=== PATIENT | male | born 1940 | race Two or more races ===

== ENCOUNTER → 2016-10-06 | Outpatient (CLI) | payer MEDICARE, OTHER | END | disposition home or self-care (01) | LOC: Rad HDHVI 09:43 | PROVIDERS: ATTEND Internal Medicine Cardiovascular Disease | DX: I10 Essential (primary) hypertension (principal); E78.4 Other hyperlipidemia | CPT/HCPCS: 93306 ==

== ENCOUNTER → 2016-10-21 | Outpatient (CLI) | payer MEDICARE, OTHER ==
[~2016-10-21] MED LIST: ADENOSINE 72 MG in GIVE UN-DILUTED 0 ML IV ONE; ADENOSINE 90 MG/30 ML INJ IV ONE
[2016-10-21 12:26] LABS: Urine Bilirubin Negative (Negative); Urine Blood Negative /uL (Negative); Urine Color Yellow (Yellow); Urine Glucose Normal (Normal); Urine Ketone Negative (Negative); Urine Nitrite Negative (Negative); Urine Urobilinogen Normal (Negative); Urine pH 6.5 (5.0-8.0)
[2016-10-21 12:31] LABS: Basophils # (auto) 0 uL; Basophils % (auto) 0.5 % (0.0-2.0); CONDITION Y; Eosinophils # (auto) 0.2 uL; Eosinophils % (auto) 2.3 % (0.0-7.0); Hematocrit 44.5 % (41.0-53.0); Hemoglobin 15.3 g/dL (13.5-17.5); Lymphocytes # (auto) 1.5 uL; Lymphocytes % (auto) 21.1 % (10.0-50.0); Mean Corpuscular Hemoglobin 32.7 pg (28.0-32.0); Mean Corpuscular Hgb Conc. 34.4 g/dL (32.0-36.0); Mean Corpuscular Volume 94.9 fL (80.0-100.0); Mean Platelet Volume 10.4 fL (7.4-10.4); Monocytes # (auto) 0.7 uL; Neutrophils # (auto) 4.8 uL; Neutrophils % (auto) 66.1 % (37.0-80.0); Platelet Count (auto) 279 10^3/uL (140-450); Red Cell Distribution Width 12.6 % (11.6-16.0); White Blood Cell 7.3 10^3/uL (4.4-10.8)
[2016-10-21 12:50] LABS: Bilirubin, Total 0.6 mg/dL (0.2-1.0); Total Protein 7.5 g/dL (6.4-8.2)
[2016-10-21 13:06] LABS: Bilirubin, Direct 0.1 mg/dL (0-0.2)
[2016-10-21 13:08] LABS: Albumin 3.8 g/dL (3.4-5.0); BUN/Creatinine Ratio 13.7; Calcium 9.1 mg/dL (8.5-10.1); Potassium 3.9 mmol/L (3.5-5.1)
== END | disposition home or self-care (01) ==
LOC: Rad HDHVI 08:17
PROVIDERS: ATTEND Internal Medicine Cardiovascular Disease
DX: I10 Essential (primary) hypertension (principal); E78.00 Pure hypercholesterolemia, unspecified; K74.1 Hepatic sclerosis; E11.9 Type 2 diabetes mellitus without complications; E03.9 Hypothyroidism, unspecified; E78.4 Other hyperlipidemia; N39.0 Urinary tract infection, site not specified; D64.9 Anemia, unspecified; E55.9 Vitamin D deficiency, unspecified; R97.20 Elevated prostate specific antigen [PSA]; R53.81 Other malaise
CPT/HCPCS: 36415; 78452; 80048; 80061; 80076; 81003; 82306; 83036; 84153; 84403; 84443; 85025; 93005; 96374; 96375; A9500; J0153

== ENCOUNTER 2017-04-02 13:07 | Emergency (ER) | payer MEDICARE, OTHER ==
[~2017-04-02] VITALS: Ht 175.3 cm; Wt 83.5 kg
[2017-04-02 13:24] VITALS: BP 171/74
[2017-04-02 15:23] LABS: Basophils # (auto) 0.1 uL; Basophils % (auto) 0.4 % (0.0-2.0); Eosinophils # (auto) 0.1 uL; Eosinophils % (auto) 0.5 % (0.0-7.0); Hemoglobin 15.3 g/dL (13.5-17.5); Lymphocytes # (auto) 0.5 uL; Lymphocytes % (auto) 4.1 % (10.0-50.0); Mean Corpuscular Hemoglobin 31.7 pg (28.0-32.0); Mean Corpuscular Hgb Conc. 33.3 g/dL (32.0-36.0); Mean Corpuscular Volume 95.3 fL (80.0-100.0); Monocytes % (auto) 7.4 % (0.0-12.0); Neutrophils # (auto) 11.6 uL; Neutrophils % (auto) 87.6 % (37.0-80.0); Platelet Count (auto) 231 10^3/uL (140-450); Red Blood Cells 4.82 10^6/uL (4.5-5.90); Red Cell Distribution Width 12.9 % (11.8-14.3); White Blood Cell 13.2 10^3/uL (4.4-10.8)
[2017-04-02 15:42] LABS: Alanine Aminotransferase 33 U/L (16-61); Albumin 3.9 g/dL (3.4-5.0); Alkaline Phosphatase 84 U/L (45-117); Anion Gap 8 (5-15); Aspartate Aminotransferase 21 U/L (15-37); BUN/Creatinine Ratio 14.9; Bilirubin, Total 0.7 mg/dL (0.2-1.0); Blood Urea Nitrogen 17 mg/dL (7-18); Carbon Dioxide 25 mmol/L (21-32); Chloride 100 mmol/L (98-107); GFR African American 80 mL/min; GFR Non-African American 66 mL/min; Glucose 241 mg/dL (74-106); Sodium 133 mmol/L (136-145); Total Protein 8.2 g/dL (6.4-8.2)
== END 2017-04-02 15:53 | disposition left against medical advice (07) ==
LOC: EDBD 13:07 → ER 13:17
DX: R05 Cough (principal); J11.1 Influenza due to unidentified influenza virus with other respiratory manifestations; Z53.21 Procedure and treatment not carried out due to patient leaving prior to being seen by health care provider
CPT/HCPCS: 36415; 80053; 84484; 85025; 93005

== ENCOUNTER → 2017-06-28 | Outpatient (CLI) | payer MEDICARE, OTHER ==
[2017-06-28 12:25] LABS: Basophils # (auto) 0.1 uL; Basophils % (auto) 0.7 % (0.0-2.0); Eosinophils # (auto) 0.2 uL; Eosinophils % (auto) 2.4 % (0.0-7.0); Hematocrit 45.8 % (41.0-53.0); Hemoglobin 15.5 g/dL (13.5-17.5); Lymphocytes % (auto) 24.2 % (10.0-50.0); Mean Corpuscular Hemoglobin 32.3 pg (28.0-32.0); Mean Corpuscular Hgb Conc. 33.7 g/dL (32.0-36.0); Mean Corpuscular Volume 95.7 fL (80.0-100.0); Monocytes # (auto) 0.8 uL; Neutrophils # (auto) 5.3 uL; Neutrophils % (auto) 62.7 % (37.0-80.0); Nucleated Red Blood Cells % 0.4 %; Platelet Count (auto) 252 10^3/uL (140-450); Red Blood Cells 4.79 10^6/uL (4.5-5.90); Red Cell Distribution Width 13.3 % (11.8-14.3); White Blood Cell 8.4 10^3/uL (4.4-10.8)
[2017-06-28 12:26] LABS: Urine Blood 1+ /uL (Negative); Urine Specific Gravity 1.012 (1.001-1.035)
[2017-06-28 12:45] LABS: Albumin 3.8 g/dL (3.4-5.0); BUN/Creatinine Ratio 15.3; Bilirubin, Total 0.5 mg/dL (0.2-1.0); Calcium 9.2 mg/dL (8.5-10.1); Potassium 4.5 mmol/L (3.5-5.1)
[2017-06-28 13:08] LABS: Free T4 (Free Thyroxine) 1.03 ng/dL (0.89-1.76); Prostate Specific Antigen 0.73 ng/mL (0.0-4.0)
== END | disposition home or self-care (01) ==
LOC: LAB 08:29
PROVIDERS: ATTEND Internal Medicine Cardiovascular Disease
DX: E78.5 Hyperlipidemia, unspecified (principal); D64.9 Anemia, unspecified; I10 Essential (primary) hypertension; E03.9 Hypothyroidism, unspecified; E55.9 Vitamin D deficiency, unspecified; E11.9 Type 2 diabetes mellitus without complications; D51.9 Vitamin B12 deficiency anemia, unspecified; R53.81 Other malaise; R97.20 Elevated prostate specific antigen [PSA]; N39.0 Urinary tract infection, site not specified
CPT/HCPCS: 36415; 80053; 80061; 81003; 82306; 82607; 83036; 84153; 84403; 84439; 84443; 85025

== ENCOUNTER → 2018-01-04 | Outpatient (CLI) | payer MEDICARE, OTHER ==
[~2018-01-04] VITALS: Ht 175.3 cm; Wt 88.5 kg
[~2018-01-04] MED LIST changes: -ADENOSINE 72 MG in GIVE UN-DILUTED 0 ML IV ONE; +ADENOSINE 74 MG in GIVE UN-DILUTED 0 ML IV ONE
[2018-01-04 16:45] LABS: Basophils # (auto) 0.1 uL; Basophils % (auto) 0.6 % (0.0-2.0); Eosinophils # (auto) 0.2 uL; Eosinophils % (auto) 1.8 % (0.0-7.0); Hematocrit 43.6 % (41.0-53.0); Hemoglobin 15.3 g/dL (13.5-17.5); Lymphocytes % (auto) 21.9 % (10.0-50.0); Mean Corpuscular Hemoglobin 33.1 pg (28.0-32.0); Mean Corpuscular Hgb Conc. 35.1 g/dL (32.0-36.0); Mean Corpuscular Volume 94.5 fL (80.0-100.0); Monocytes # (auto) 0.8 uL; Neutrophils # (auto) 6.1 uL; Neutrophils % (auto) 66.7 % (37.0-80.0); Nucleated Red Blood Cells % 0.2 %; Platelet Count (auto) 240 10^3/uL (140-450); Red Blood Cells 4.61 10^6/uL (4.5-5.90); White Blood Cell 9.1 10^3/uL (4.4-10.8)
[2018-01-04 17:00] LABS: Free T4 (Free Thyroxine) 1.15 ng/dL (0.89-1.76); Prostate Specific Antigen 0.87 ng/mL (0.0-4.0)
[2018-01-04 17:19] LABS: Albumin 3.6 g/dL (3.4-5.0); Calcium 8.8 mg/dL (8.5-10.1); Potassium 4.4 mmol/L (3.5-5.1)
[2018-01-04 17:37] LABS: BUN/Creatinine Ratio 20.5; Bilirubin, Total 0.3 mg/dL (0.2-1.0); Total Protein 7.7 g/dL (6.4-8.2)
[2018-01-04 17:38] LABS: CRP High Sensitivity 0.045 mg/dL (< 0.3)
== END | disposition home or self-care (01) ==
LOC: Rad HDHVI 13:39
PROVIDERS: ATTEND Internal Medicine Cardiovascular Disease
DX: E78.5 Hyperlipidemia, unspecified (principal); I10 Essential (primary) hypertension; E03.9 Hypothyroidism, unspecified; E11.9 Type 2 diabetes mellitus without complications; D64.9 Anemia, unspecified; R74.8 Abnormal levels of other serum enzymes; R79.82 Elevated C-reactive protein (CRP); C61 Malignant neoplasm of prostate; I25.10 Atherosclerotic heart disease of native coronary artery without angina pectoris; G62.9 Polyneuropathy, unspecified
CPT/HCPCS: 36415; 78452; 80053; 80061; 82550; 83036; 84153; 84439; 84443; 84479; 85025; 86141; 93005; 96374; 96375; A9500; J0153

== ENCOUNTER → 2018-05-01 | Outpatient (CLI) | payer MEDICARE, OTHER ==
[2018-05-01 12:13] LABS: Basophils # (auto) 0.1 uL; Basophils % (auto) 0.7 % (0.0-2.0); Eosinophils # (auto) 0.1 uL; Eosinophils % (auto) 1.3 % (0.0-7.0); Hematocrit 48.3 % (41.0-53.0); Hemoglobin 16.4 g/dL (13.5-17.5); Lymphocytes # (auto) 1.9 uL; Lymphocytes % (auto) 21.7 % (10.0-50.0); Mean Corpuscular Hemoglobin 32.3 pg (28.0-32.0); Monocytes # (auto) 0.7 uL; Monocytes % (auto) 8.2 % (0.0-12.0); Neutrophils % (auto) 68.1 % (37.0-80.0); Nucleated Red Blood Cells % 0.1 %; Platelet Count (auto) 249 10^3/uL (140-450); Red Blood Cells 5.08 10^6/uL (4.5-5.90); Red Cell Distribution Width 13.3 % (11.8-14.3); White Blood Cell 8.9 10^3/uL (4.4-10.8)
[2018-05-01 12:47] LABS: Potassium 4.2 mmol/L (3.5-5.1)
[2018-05-01 12:56] LABS: Albumin 3.9 g/dL (3.4-5.0); BUN/Creatinine Ratio 15.6; Bilirubin, Total 0.3 mg/dL (0.2-1.0); Calcium 9.4 mg/dL (8.5-10.1); Total Protein 7.7 g/dL (6.4-8.2)
== END | disposition home or self-care (01) ==
LOC: LAB 10:12
PROVIDERS: ATTEND Internal Medicine
DX: D64.9 Anemia, unspecified (principal); E11.9 Type 2 diabetes mellitus without complications; I10 Essential (primary) hypertension
CPT/HCPCS: 36415; 80053; 83036; 85025

== ENCOUNTER → 2018-08-01 | Outpatient (CLI) | payer MEDICARE, OTHER | END | disposition home or self-care (01) | LOC: Rad HDHVI 10:44 | PROVIDERS: ATTEND Internal Medicine | DX: I70.8 Atherosclerosis of other arteries (principal); G62.9 Polyneuropathy, unspecified; I73.9 Peripheral vascular disease, unspecified | CPT/HCPCS: 93926 ==

== ENCOUNTER 2022-11-16 18:06 | Inpatient (IN) | payer MEDICARE, OTHER ==
[~2022-11-16] VITALS: Ht 175.3 cm; Wt 94.6 kg
[2022-11-16 19:06] LABS: Basophils # (auto) 0 10 ^3/uL (0-0.2); Basophils % (auto) 0.3 % (0.0-2.0); Eosinophils # (auto) 0.1 10 ^3/uL (0-0.8); Eosinophils % (auto) 0.9 % (0.0-7.0); Hematocrit 36.6 % (41.0-53.0); Hemoglobin 12.2 g/dL (13.5-17.5); Lymphocytes # (auto) 1.4 10 ^3/uL (0.4-5.4); Lymphocytes % (auto) 9.8 % (10.0-50.0); Mean Corpuscular Hemoglobin 31.5 pg (28.0-32.0); Mean Corpuscular Hgb Conc. 33.2 g/dL (32.0-36.0); Mean Corpuscular Volume 94.8 fL (80.0-100.0); Monocytes # (auto) 1.5 10 ^3/uL (0-1.3); Monocytes % (auto) 10.5 % (0.0-12.0); Neutrophils # (auto) 11.6 10 ^3/uL (1.6-8.6); Neutrophils % (auto) 78.5 % (37.0-80.0); Nucleated Red Blood Cells % 0.1 %; Red Blood Cells 3.86 10^6/uL (4.5-5.90); Red Cell Distribution Width 13.1 % (11.8-14.3); White Blood Cell 14.8 10^3/uL (4.4-10.8)
[2022-11-16 19:22] LABS: Albumin 3.3 g/dL (3.4-5.0); BUN/Creatinine Ratio 15.1 (10.0-20.0); Calcium 8.6 mg/dL (8.5-10.1); Magnesium 2.3 mg/dL (1.6-2.6)
[2022-11-16 19:24] LABS: Bilirubin, Total 0.6 mg/dL (0.2-1.0); Total Protein 6.4 g/dL (6.4-8.2)
[2022-11-16 19:27] LABS: INR 1.06 (0.9-1.15); Partial Thromboplastin Time 26.6 SEC (24.5-34.5); Prothrombin Time 11.1 sec (9.3-11.8)
[2022-11-16] MEDS ORDERED: DEXTROSE (50%) 50ML SYRG IV PRN (21:30)
[2022-11-16] MEDS ORDERED: ONDANSETRON HCL 4 MG/2 ML VIAL IV PRN (21:30)
[2022-11-16] MEDS ORDERED: MORPHINE SULFATE INJ 2 MG/ml SYRG IV PRN (21:30)
[2022-11-16] MEDS ORDERED: DOCUSATE SOD 100 MG CAP PO PRN (21:30)
[2022-11-16] MEDS ORDERED: NITROGLYCERIN 0.4 MG SL TAB SL PRN (21:30)
[2022-11-16] MEDS ORDERED: HYDROcodone-ACET 5/325MG TAB PO PRN (21:30)
[2022-11-16] MEDS ORDERED: FUR20T PO (21:44)
[2022-11-16] MEDS ORDERED: ATOR40TA52 PO (21:44)
[2022-11-16] MEDS ORDERED: METO1TAB9 PO (21:44)
[2022-11-16] MEDS ORDERED: LISI40TA16 PO (21:44)
[2022-11-16] MEDS: InsuLIN REG 1unit/0.01ml Soln (100units/ml) SC SCH (22:00)
[2022-11-16] MEDS: ACCU-CHEK COMFORT CURVE STRIP VI SCH (22:00)
[2022-11-16] MEDS: ATORVASTATIN 20 MG TAB PO SCH (22:37)
[2022-11-16] MEDS: SODIUM CHLOR 0.9% PF (SALINE LOCK) 10ML VIAL/SYR IV SCH (22:38)
[2022-11-16 23:42] VITALS: PULSE 68; RESP 22; O2SAT 94
[2022-11-17] VITALS (9 sets, daily range): BP systolic 144–168; BP diastolic 57–75; PULSE 70–130; RESP 16–22; TEMP 97.8–99.1; O2SAT 95–97
[2022-11-17 04:31] LABS: Urine Bacteria MOD /hpf (None Seen); Urine Blood TRACE /uL (Negative); Urine Clarity HAZY (Clear); Urine Protein, UAD TRACE (Negative); Urine Specific Gravity 1.004 (1.001-1.035); Urine Urobilinogen Normal (Negative); Urine WBC 115 /hpf (0 - 3); Urine WBC Clumps PRESENT /hpf (None Seen); Urine pH 7.5 (5.0-8.0)
[2022-11-17 04:36] LABS: Urine Color Straw (Yellow)
[2022-11-17 05:01] LABS: Basophils # (auto) 0 10 ^3/uL (0-0.2); Basophils % (auto) 0.2 % (0.0-2.0); Eosinophils # (auto) 0.4 10 ^3/uL (0-0.8); Eosinophils % (auto) 2.6 % (0.0-7.0); Hematocrit 40.3 % (41.0-53.0); Hemoglobin 13.8 g/dL (13.5-17.5); Lymphocytes # (auto) 1.2 10 ^3/uL (0.4-5.4); Lymphocytes % (auto) 8.4 % (10.0-50.0); Mean Corpuscular Hemoglobin 32.3 pg (28.0-32.0); Mean Corpuscular Hgb Conc. 34.2 g/dL (32.0-36.0); Mean Corpuscular Volume 94.3 fL (80.0-100.0); Monocytes # (auto) 1.3 10 ^3/uL (0-1.3); Monocytes % (auto) 9.1 % (0.0-12.0); Neutrophils # (auto) 11.5 10 ^3/uL (1.6-8.6); Neutrophils % (auto) 79.7 % (37.0-80.0); Red Blood Cells 4.27 10^6/uL (4.5-5.90); Red Cell Distribution Width 13.3 % (11.8-14.3); White Blood Cell 14.4 10^3/uL (4.4-10.8)
[2022-11-17 05:17] LABS: Albumin 3.6 g/dL (3.4-5.0); Calcium 9.2 mg/dL (8.5-10.1); Potassium 3.5 mmol/L (3.5-5.1)
[2022-11-17 05:22] LABS: BUN/Creatinine Ratio 13.5 (10.0-20.0); Total Protein 7.6 g/dL (6.4-8.2)
[2022-11-17] MEDS ORDERED: FUROSEMIDE 20 MG/2 ML VIAL IV SCH (06:00)
[2022-11-17] MEDS: ACCU-CHEK COMFORT CURVE STRIP VI SCH ×4 (06:24→21:11)
[2022-11-17] MEDS: InsuLIN REG 1unit/0.01ml Soln (100units/ml) SC SCH ×4 (06:25→21:18)
[2022-11-17] MEDS: SODIUM CHLOR 0.9% PF (SALINE LOCK) 10ML VIAL/SYR IV SCH ×3 (06:26→21:11)
[2022-11-17 09:00] LABS: Magnesium 2.3 mg/dL (1.6-2.6)
[2022-11-17] MEDS: LISINOPRIL 20 MG TAB PO SCH (09:17)
[2022-11-17] MEDS: ASPirin 81 mg TAB PO SCH (09:17)
[2022-11-17] MEDS: METOPROLOL SUCCINATE XL 50 MG TAB PO SCH (09:18)
[2022-11-17 09:27] LABS: Alcohol, Urine < 3.0 mg/dL (0-10); Amphetamine Screen, Urine NEGATIVE (NEGATIVE); Barbiturate Scree,Urine NEGATIVE (NEGATIVE); Benzodiazephine Screen, Urine NEGATIVE (NEGATIVE); Cannabinoid Screen, Urine NEGATIVE (NEGATIVE); Cocaine Screen, Urine NEGATIVE (NEGATIVE); Opiate Scree,Urine NEGATIVE (NEGATIVE); Phencyclidine Screen, Urine NEGATIVE (NEGATIVE)
[2022-11-17] MEDS ORDERED: cefTRIAXone 1GM/50ML D5W 50 ML IV ONE (12:00)
[2022-11-17] MEDS ORDERED: AZITHROMYCIN 500MG/ 250ML 250 ML IV ONE (12:00)
[2022-11-17] MEDS ORDERED: FUROSEMIDE 20 MG TAB PO ONE (20:15)
[2022-11-17] MEDS: ATORVASTATIN 20 MG TAB PO SCH (21:11)
[2022-11-17] MEDS: LACTULOSE 20Gm/30ML SOLN PO SCH (21:16)
[2022-11-17] MEDS: LATANOPROST 0.005 % OPTH(EYE) SOL 2.5ML EACHEYE SCH (21:54)
[2022-11-17] MEDS: TIMOLOL MALEATE 0.25 % OPTH SOL 5ML EACHEYE SCH (21:54)
[2022-11-18] VITALS (15 sets, daily range): BP systolic 128–163; BP diastolic 60–76; PULSE 64–110; RESP 16–24; TEMP 98.2–99; O2SAT 90–100
[2022-11-18] MEDS: hydrALAZINE HCL 20 MG/ML VL IV PRN (04:43)
[2022-11-18] MEDS: SODIUM CHLOR 0.9% PF (SALINE LOCK) 10ML VIAL/SYR IV SCH ×3 (06:21→21:30)
[2022-11-18] MEDS: InsuLIN REG 1unit/0.01ml Soln (100units/ml) SC SCH ×4 (06:21→21:47)
[2022-11-18] MEDS: ACCU-CHEK COMFORT CURVE STRIP VI SCH ×4 (06:21→21:31)
[2022-11-18] MEDS: EMPAGLIFLOZIN 10 MG TAB PO SCH (06:22)
[2022-11-18 06:55] LABS: Basophils # (auto) 0 10 ^3/uL (0-0.2); Basophils % (auto) 0.2 % (0.0-2.0); Eosinophils # (auto) 0.2 10 ^3/uL (0-0.8); Hematocrit 38.6 % (41.0-53.0); Hemoglobin 13.2 g/dL (13.5-17.5); Lymphocytes # (auto) 1.1 10 ^3/uL (0.4-5.4); Lymphocytes % (auto) 6.3 % (10.0-50.0); Mean Corpuscular Hemoglobin 32.4 pg (28.0-32.0); Mean Corpuscular Hgb Conc. 34.3 g/dL (32.0-36.0); Mean Corpuscular Volume 94.4 fL (80.0-100.0); Monocytes # (auto) 1.7 10 ^3/uL (0-1.3); Monocytes % (auto) 9.9 % (0.0-12.0); Neutrophils % (auto) 82.6 % (37.0-80.0); Nucleated Red Blood Cells % 0.1 %; Red Blood Cells 4.08 10^6/uL (4.5-5.90)
[2022-11-18 07:05] LABS: Potassium 3.8 mmol/L (3.5-5.1)
[2022-11-18 07:14] LABS: BUN/Creatinine Ratio 22.4 (10.0-20.0); Bilirubin, Total 0.8 mg/dL (0.2-1.0); Calcium 8.6 mg/dL (8.5-10.1); Magnesium 2.2 mg/dL (1.6-2.6); Total Protein 7.3 g/dL (6.4-8.2)
[2022-11-18 07:25] LABS: Albumin 3.1 g/dL (3.4-5.0)
[2022-11-18] MEDS: ALBUTEROL SULF 2.5 MG/0.5ML(0.5%) NEB SOLN NEB PRN ×3 (08:02→19:01)
[2022-11-18] MEDS: cefTRIAXone 1GM/50ML D5W 50 ML IV SCH (09:23)
[2022-11-18] MEDS: amLODIPine BESYLATE 5 MG TAB PO SCH (09:24)
[2022-11-18] MEDS: SPIRONOLACTONE 25 MG TAB PO SCH (09:25)
[2022-11-18] MEDS: ASPirin 81 mg TAB PO SCH (09:25)
[2022-11-18] MEDS: METOPROLOL SUCCINATE XL 50 MG TAB PO SCH (09:25)
[2022-11-18] MEDS: FUROSEMIDE 20 MG/2 ML VIAL IV SCH (09:25)
[2022-11-18] MEDS: LACTULOSE 20Gm/30ML SOLN PO SCH ×2 (09:26→21:31)
[2022-11-18] MEDS: LISINOPRIL 20 MG TAB PO SCH (09:26)
[2022-11-18] MEDS: TIMOLOL MALEATE 0.25 % OPTH SOL 5ML EACHEYE SCH ×2 (09:26→21:30)
[2022-11-18] MEDS ORDERED: AZITHROMYCIN 500MG/ 250ML 250 ML IV SCH (10:00)
[2022-11-18] MEDS ORDERED: IPRATROPIUM BROM 0.5 MG/2.5ML INH SOL NEB SCH (12:00)
[2022-11-18] MEDS: IPRATROPIUM BROM 0.5 MG/2.5ML INH SOL NEB SCH ×3 (15:08→22:00)
[2022-11-18] MEDS: ACETYLCYSTEINE 20%(200MG/ML) SOL 4ML NEB SCH ×2 (15:08→22:00)
[2022-11-18] MEDS: BUDESONIDE (INHALATION) 0.5 MG/2 ML NEB NEB SCH (19:01)
[2022-11-18] MEDS: LATANOPROST 0.005 % OPTH(EYE) SOL 2.5ML EACHEYE SCH (21:30)
[2022-11-18] MEDS: ATORVASTATIN 20 MG TAB PO SCH (21:31)
[2022-11-19] VITALS (18 sets, daily range): BP systolic 128–157; BP diastolic 67–91; PULSE 68–134; RESP 16–24; TEMP 98.5–99.6; O2SAT 88–98
[2022-11-19] MEDS: IPRATROPIUM BROM 0.5 MG/2.5ML INH SOL NEB SCH ×7 (02:00→22:22)
[2022-11-19] MEDS: SODIUM CHLOR 0.9% PF (SALINE LOCK) 10ML VIAL/SYR IV SCH ×3 (05:51→22:00)
[2022-11-19] MEDS: ACCU-CHEK COMFORT CURVE STRIP VI SCH ×4 (05:51→21:46)
[2022-11-19] MEDS: EMPAGLIFLOZIN 10 MG TAB PO SCH (05:51)
[2022-11-19] MEDS: InsuLIN REG 1unit/0.01ml Soln (100units/ml) SC SCH ×4 (05:54→21:52)
[2022-11-19 06:42] LABS: Basophils # (auto) 0 10 ^3/uL (0-0.2); Basophils % (auto) 0.1 % (0.0-2.0); Eosinophils # (auto) 0.1 10 ^3/uL (0-0.8); Eosinophils % (auto) 0.8 % (0.0-7.0); Hemoglobin 13.1 g/dL (13.5-17.5); Lymphocytes # (auto) 0.8 10 ^3/uL (0.4-5.4); Lymphocytes % (auto) 4.9 % (10.0-50.0); Mean Corpuscular Hgb Conc. 33.7 g/dL (32.0-36.0); Mean Corpuscular Volume 94.9 fL (80.0-100.0); Monocytes # (auto) 1.8 10 ^3/uL (0-1.3); Monocytes % (auto) 10.5 % (0.0-12.0); Neutrophils # (auto) 14.1 10 ^3/uL (1.6-8.6); Neutrophils % (auto) 83.7 % (37.0-80.0); Red Blood Cells 4.11 10^6/uL (4.5-5.90); Red Cell Distribution Width 13.1 % (11.8-14.3); White Blood Cell 16.9 10^3/uL (4.4-10.8)
[2022-11-19 06:56] LABS: BUN/Creatinine Ratio 27.6 (10.0-20.0); Calcium 8.9 mg/dL (8.5-10.1); Potassium 3.4 mmol/L (3.5-5.1)
[2022-11-19 06:59] LABS: Bilirubin, Total 0.7 mg/dL (0.2-1.0); Total Protein 7.4 g/dL (6.4-8.2)
[2022-11-19] MEDS: ALBUTEROL SULF 2.5 MG/0.5ML(0.5%) NEB SOLN NEB PRN ×5 (07:12→22:22)
[2022-11-19] MEDS: ACETYLCYSTEINE 20%(200MG/ML) SOL 4ML NEB SCH ×3 (07:13→22:23)
[2022-11-19] MEDS ORDERED: POTASSIUM EFFERVESENT TAB 25 MEQ GT ONE (08:15)
[2022-11-19] MEDS: cefTRIAXone 1GM/50ML D5W 50 ML IV SCH (09:32)
[2022-11-19] MEDS: TIMOLOL MALEATE 0.25 % OPTH SOL 5ML EACHEYE SCH ×2 (09:32→22:00)
[2022-11-19] MEDS: LACTULOSE 20Gm/30ML SOLN PO SCH ×2 (09:33→21:46)
[2022-11-19] MEDS: ASPirin 81 mg TAB PO SCH (09:33)
[2022-11-19] MEDS: amLODIPine BESYLATE 5 MG TAB PO SCH (09:35)
[2022-11-19] MEDS: LISINOPRIL 20 MG TAB PO SCH (09:35)
[2022-11-19] MEDS: METOPROLOL SUCCINATE XL 50 MG TAB PO SCH (09:36)
[2022-11-19] MEDS: FUROSEMIDE 20 MG/2 ML VIAL IV SCH (09:36)
[2022-11-19] MEDS: SPIRONOLACTONE 25 MG TAB PO SCH (09:37)
[2022-11-19] MEDS: BUDESONIDE (INHALATION) 0.5 MG/2 ML NEB NEB SCH ×2 (10:53→19:02)
[2022-11-19] MEDS: hydrALAZINE HCL 20 MG/ML VL IV PRN (17:40)
[2022-11-19] MEDS: ACETAMINOPHEN 325 MG TAB PO PRN (19:28)
[2022-11-19] MEDS: ATORVASTATIN 20 MG TAB PO SCH (21:46)
[2022-11-19] MEDS: LATANOPROST 0.005 % OPTH(EYE) SOL 2.5ML EACHEYE SCH (22:00)
[2022-11-20] VITALS (19 sets, daily range): BP systolic 103–167; BP diastolic 59–80; PULSE 71–94; RESP 15–21; TEMP 98–100.6; O2SAT 90–96
[2022-11-20] MEDS: IPRATROPIUM BROM 0.5 MG/2.5ML INH SOL NEB SCH ×6 (02:00→21:43)
[2022-11-20] MEDS: EMPAGLIFLOZIN 10 MG TAB PO SCH (05:21)
[2022-11-20] MEDS: SODIUM CHLOR 0.9% PF (SALINE LOCK) 10ML VIAL/SYR IV SCH ×3 (05:21→21:03)
[2022-11-20] MEDS: ACCU-CHEK COMFORT CURVE STRIP VI SCH ×4 (05:26→21:13)
[2022-11-20] MEDS: InsuLIN REG 1unit/0.01ml Soln (100units/ml) SC SCH ×4 (05:27→21:22)
[2022-11-20] MEDS: ALBUTEROL SULF 2.5 MG/0.5ML(0.5%) NEB SOLN NEB PRN ×5 (07:26→21:42)
[2022-11-20] MEDS: ACETYLCYSTEINE 20%(200MG/ML) SOL 4ML NEB SCH ×3 (07:26→18:30)
[2022-11-20 08:29] LABS: Basophils # (auto) 0 10 ^3/uL (0-0.2); Basophils % (auto) 0.2 % (0.0-2.0); Eosinophils # (auto) 0.3 10 ^3/uL (0-0.8); Eosinophils % (auto) 1.5 % (0.0-7.0); Hematocrit 40.7 % (41.0-53.0); Hemoglobin 13.2 g/dL (13.5-17.5); Lymphocytes # (auto) 1.3 10 ^3/uL (0.4-5.4); Mean Corpuscular Hemoglobin 31.4 pg (28.0-32.0); Mean Corpuscular Hgb Conc. 32.4 g/dL (32.0-36.0); Mean Corpuscular Volume 96.6 fL (80.0-100.0); Monocytes # (auto) 1.7 10 ^3/uL (0-1.3); Monocytes % (auto) 8.9 % (0.0-12.0); Neutrophils # (auto) 15.5 10 ^3/uL (1.6-8.6); Neutrophils % (auto) 82.4 % (37.0-80.0); Nucleated Red Blood Cells % 0.1 %; Red Blood Cells 4.21 10^6/uL (4.5-5.90); White Blood Cell 18.9 10^3/uL (4.4-10.8)
[2022-11-20] MEDS: cefTRIAXone 1GM/50ML D5W 50 ML IV SCH (08:42)
[2022-11-20 09:22] LABS: BUN/Creatinine Ratio 35.3 (10.0-20.0); Calcium 9.1 mg/dL (8.5-10.1); Potassium 3.9 mmol/L (3.5-5.1)
[2022-11-20] MEDS: METOPROLOL SUCCINATE XL 50 MG TAB PO SCH (09:30)
[2022-11-20] MEDS: LACTULOSE 20Gm/30ML SOLN PO SCH ×2 (09:30→21:04)
[2022-11-20] MEDS: amLODIPine BESYLATE 5 MG TAB PO SCH (09:31)
[2022-11-20] MEDS: ASPirin 81 mg TAB PO SCH (09:31)
[2022-11-20] MEDS: SPIRONOLACTONE 25 MG TAB PO SCH (09:32)
[2022-11-20] MEDS: TIMOLOL MALEATE 0.25 % OPTH SOL 5ML EACHEYE SCH ×2 (09:33→21:03)
[2022-11-20] MEDS: FUROSEMIDE 20 MG/2 ML VIAL IV SCH (09:33)
[2022-11-20] MEDS: LISINOPRIL 20 MG TAB PO SCH (10:00)
[2022-11-20] MEDS: BUDESONIDE (INHALATION) 0.5 MG/2 ML NEB NEB SCH ×2 (10:14→18:30)
[2022-11-20] MEDS ORDERED: VANCOMYCIN PER PHARMACY 0 MG IV SCH (13:00)
[2022-11-20] MEDS: hydrALAZINE HCL 20 MG/ML VL IV PRN (13:05)
[2022-11-20] MEDS ORDERED: VANCOMYCIN 1GM/250ML 250 ML IV ONE ×2 (13:30→15:00)
[2022-11-20 14:23] LABS: Base Excess 1.3 mmol/L (-2.0-2.0)
[2022-11-20] MEDS: LATANOPROST 0.005 % OPTH(EYE) SOL 2.5ML EACHEYE SCH (21:03)
[2022-11-20] MEDS: PIPERACILLIN-TAZOB 3.375GM 100 ML IV SCH (21:03)
[2022-11-20] MEDS: ATORVASTATIN 20 MG TAB PO SCH (21:04)
[2022-11-20] MEDS: INSULIN LANTUS (GLARGINE) 1 /0.01ml (100units/ml) SC SCH (21:24)
[2022-11-20] MEDS: ACETAMINOPHEN 325 MG TAB PO PRN (21:40)
[2022-11-21] VITALS (25 sets, daily range): BP systolic 104–132; BP diastolic 50–75; PULSE 61–134; RESP 15–26; TEMP 97.7–101.5; O2SAT 90–98
[2022-11-21] MEDS: IPRATROPIUM BROM 0.5 MG/2.5ML INH SOL NEB SCH ×6 (01:57→22:19)
[2022-11-21] MEDS: ALBUTEROL SULF 2.5 MG/0.5ML(0.5%) NEB SOLN NEB PRN ×6 (01:57→22:19)
[2022-11-21 02:28] LABS: Base Excess -0.2 mmol/L (-2.0-2.0)
[2022-11-21] MEDS: ACCU-CHEK COMFORT CURVE STRIP VI SCH ×4 (05:27→21:48)
[2022-11-21] MEDS: SODIUM CHLOR 0.9% PF (SALINE LOCK) 10ML VIAL/SYR IV SCH ×3 (05:27→21:29)
[2022-11-21] MEDS: InsuLIN REG 1unit/0.01ml Soln (100units/ml) SC SCH ×4 (05:30→21:50)
[2022-11-21] MEDS: INSULIN LANTUS (GLARGINE) 1 /0.01ml (100units/ml) SC SCH ×2 (05:36→21:49)
[2022-11-21] MEDS: EMPAGLIFLOZIN 10 MG TAB PO SCH (05:36)
[2022-11-21 06:26] LABS: Basophils # (auto) 0 10 ^3/uL (0-0.2); Basophils % (auto) 0.2 % (0.0-2.0); Eosinophils # (auto) 0.5 10 ^3/uL (0-0.8); Eosinophils % (auto) 2.5 % (0.0-7.0); Hematocrit 37.8 % (41.0-53.0); Lymphocytes # (auto) 1.2 10 ^3/uL (0.4-5.4); Lymphocytes % (auto) 6.3 % (10.0-50.0); Mean Corpuscular Hemoglobin 32.4 pg (28.0-32.0); Mean Corpuscular Hgb Conc. 34.3 g/dL (32.0-36.0); Mean Corpuscular Volume 94.4 fL (80.0-100.0); Monocytes # (auto) 1.6 10 ^3/uL (0-1.3); Monocytes % (auto) 8.6 % (0.0-12.0); Neutrophils # (auto) 15.3 10 ^3/uL (1.6-8.6); Neutrophils % (auto) 82.4 % (37.0-80.0); Red Cell Distribution Width 13.2 % (11.8-14.3); White Blood Cell 18.6 10^3/uL (4.4-10.8)
[2022-11-21 06:34] LABS: Albumin 2.5 g/dL (3.4-5.0); Calcium 8.8 mg/dL (8.5-10.1); Potassium 3.6 mmol/L (3.5-5.1)
[2022-11-21 06:40] LABS: BUN/Creatinine Ratio 27.9 (10.0-20.0); Bilirubin, Total 0.7 mg/dL (0.2-1.0); Total Protein 7.2 g/dL (6.4-8.2)
[2022-11-21] MEDS: ACETYLCYSTEINE 20%(200MG/ML) SOL 4ML NEB SCH ×3 (07:52→18:31)
[2022-11-21] MEDS: BUDESONIDE (INHALATION) 0.5 MG/2 ML NEB NEB SCH ×2 (07:52→18:30)
[2022-11-21] MEDS: TIMOLOL MALEATE 0.25 % OPTH SOL 5ML EACHEYE SCH ×2 (09:42→21:29)
[2022-11-21] MEDS: ASPirin 81 mg TAB PO SCH (09:42)
[2022-11-21] MEDS: PIPERACILLIN-TAZOB 3.375GM 100 ML IV SCH (09:42)
[2022-11-21] MEDS: SPIRONOLACTONE 25 MG TAB PO SCH (09:45)
[2022-11-21] MEDS: LACTULOSE 20Gm/30ML SOLN PO SCH ×2 (09:46→21:29)
[2022-11-21] MEDS: METOPROLOL SUCCINATE XL 50 MG TAB PO SCH (11:14)
[2022-11-21] MEDS: LISINOPRIL 20 MG TAB PO SCH (11:14)
[2022-11-21] MEDS: amLODIPine BESYLATE 5 MG TAB PO SCH (11:36)
[2022-11-21 11:44] LABS: Erythrocyte Sedimentation Rate 73 mm/hr (0-20)
[2022-11-21] MEDS ORDERED: VANCOMYCIN 1GM/250ML 250 ML IV ONE (14:00)
[2022-11-21] MEDS ORDERED: FUROSEMIDE 20 MG/2 ML VIAL IV ONE (14:15)
[2022-11-21 21:11] LABS: COVID19 ANTIGEN SOFIA FIA NEGATIVE (NEGATIVE); Rapid Influenza A Negative (Negative); Rapid Influenza B Negative (Negative)
[2022-11-21] MEDS: MEROPENEM 1GM IVPB 100 ML IV SCH (21:29)
[2022-11-21] MEDS: ATORVASTATIN 20 MG TAB PO SCH (21:29)
[2022-11-21] MEDS: LATANOPROST 0.005 % OPTH(EYE) SOL 2.5ML EACHEYE SCH (21:29)
[2022-11-22] VITALS (19 sets, daily range): BP systolic 99–146; BP diastolic 53–72; PULSE 59–103; RESP 18–28; TEMP 98–98.7; O2SAT 91–95
[2022-11-22] MEDS: ALBUTEROL SULF 2.5 MG/0.5ML(0.5%) NEB SOLN NEB PRN ×5 (01:37→22:21)
[2022-11-22] MEDS: IPRATROPIUM BROM 0.5 MG/2.5ML INH SOL NEB SCH ×6 (01:37→22:21)
[2022-11-22] MEDS ORDERED: FUROSEMIDE 20 MG/2 ML VIAL IV SCH (06:00)
[2022-11-22] MEDS: SODIUM CHLOR 0.9% PF (SALINE LOCK) 10ML VIAL/SYR IV SCH ×3 (06:12→22:39)
[2022-11-22] MEDS: EMPAGLIFLOZIN 10 MG TAB PO SCH (06:12)
[2022-11-22] MEDS: ACCU-CHEK COMFORT CURVE STRIP VI SCH ×4 (06:13→22:58)
[2022-11-22] MEDS: ACETYLCYSTEINE 20%(200MG/ML) SOL 4ML NEB SCH ×3 (06:15→18:33)
[2022-11-22] MEDS: INSULIN LANTUS (GLARGINE) 1 /0.01ml (100units/ml) SC SCH ×2 (06:20→23:02)
[2022-11-22] MEDS: InsuLIN REG 1unit/0.01ml Soln (100units/ml) SC SCH ×4 (06:23→22:00)
[2022-11-22 06:33] LABS: Basophils # (auto) 0 10 ^3/uL (0-0.2); Basophils % (auto) 0.1 % (0.0-2.0); Eosinophils # (auto) 0.6 10 ^3/uL (0-0.8); Eosinophils % (auto) 3.1 % (0.0-7.0); Hematocrit 37.4 % (41.0-53.0); Hemoglobin 12.3 g/dL (13.5-17.5); Lymphocytes # (auto) 0.9 10 ^3/uL (0.4-5.4); Lymphocytes % (auto) 4.9 % (10.0-50.0); Mean Corpuscular Hemoglobin 31.3 pg (28.0-32.0); Mean Corpuscular Volume 94.9 fL (80.0-100.0); Monocytes # (auto) 1.5 10 ^3/uL (0-1.3); Monocytes % (auto) 8.4 % (0.0-12.0); Neutrophils % (auto) 83.5 % (37.0-80.0); Red Blood Cells 3.94 10^6/uL (4.5-5.90); Red Cell Distribution Width 12.9 % (11.8-14.3); White Blood Cell 17.9 10^3/uL (4.4-10.8)
[2022-11-22 08:47] LABS: Potassium 3.8 mmol/L (3.5-5.1)
[2022-11-22 09:02] LABS: Albumin 2.3 g/dL (3.4-5.0); BUN/Creatinine Ratio 41.8 (10.0-20.0); Bilirubin, Total 0.6 mg/dL (0.2-1.0); Calcium 8.2 mg/dL (8.7-10.4)
[2022-11-22] MEDS: LACTULOSE 20Gm/30ML SOLN PO SCH ×2 (10:00→22:00)
[2022-11-22] MEDS: BUDESONIDE (INHALATION) 0.5 MG/2 ML NEB NEB SCH ×2 (10:41→18:33)
[2022-11-22] MEDS: TIMOLOL MALEATE 0.25 % OPTH SOL 5ML EACHEYE SCH ×2 (10:58→22:38)
[2022-11-22] MEDS: amLODIPine BESYLATE 5 MG TAB PO SCH (10:59)
[2022-11-22] MEDS: ASPirin 81 mg TAB PO SCH (10:59)
[2022-11-22] MEDS: MEROPENEM 1GM IVPB 100 ML IV SCH ×2 (11:00→22:38)
[2022-11-22] MEDS: METOPROLOL SUCCINATE XL 50 MG TAB PO SCH (11:00)
[2022-11-22] MEDS ORDERED: amLODIPine BESYLATE 5 MG TAB PO ONE (13:45)
[2022-11-22] MEDS: SODIUM BICARBONATE 50ML VIAL 75 ML in D5W 5% 1,000 ML IV SCH ×2 (13:59→22:30)
[2022-11-22 15:07] LABS: Base Excess -1.4 mmol/L (-2.0-2.0)
[2022-11-22] MEDS ORDERED: REMDESIVIR PER PHARMACY 0 ML IV SCH (16:00)
[2022-11-22] MEDS ORDERED: REMDESIVIR 200 MG in NS 210ml LOADING DOSE ADULT IV ONE (17:15)
[2022-11-22] MEDS ORDERED: ALBUTEROL SULF HFA 90MCG INH 200DOSE IN SCH (22:00)
[2022-11-22] MEDS: ATORVASTATIN 20 MG TAB PO SCH (22:38)
[2022-11-22] MEDS: LATANOPROST 0.005 % OPTH(EYE) SOL 2.5ML EACHEYE SCH (22:38)
[2022-11-23] VITALS (61 sets, daily range): BP systolic 73–184; BP diastolic 43–91; PULSE 66–113; RESP 15–30; TEMP 97.8–100.2; O2SAT 90–100
[2022-11-23] MEDS: ALBUTEROL SULF 2.5 MG/0.5ML(0.5%) NEB SOLN NEB PRN ×6 (01:54→22:29)
[2022-11-23] MEDS: IPRATROPIUM BROM 0.5 MG/2.5ML INH SOL NEB SCH ×6 (01:54→22:29)
[2022-11-23] MEDS: SODIUM CHLOR 0.9% PF (SALINE LOCK) 10ML VIAL/SYR IV SCH ×3 (06:00→22:15)
[2022-11-23] MEDS: EMPAGLIFLOZIN 10 MG TAB PO SCH (06:26)
[2022-11-23] MEDS: ACCU-CHEK COMFORT CURVE STRIP VI SCH ×3 (06:27→22:16)
[2022-11-23] MEDS: InsuLIN REG 1unit/0.01ml Soln (100units/ml) SC SCH ×4 (06:34→22:17)
[2022-11-23] MEDS: INSULIN LANTUS (GLARGINE) 1 /0.01ml (100units/ml) SC SCH ×2 (06:35→22:16)
[2022-11-23 06:37] LABS: Basophils # (auto) 0 10 ^3/uL (0-0.2); Basophils % (auto) 0.2 % (0.0-2.0); Eosinophils # (auto) 0.2 10 ^3/uL (0-0.8); Eosinophils % (auto) 1.1 % (0.0-7.0); Hematocrit 39.9 % (41.0-53.0); Lymphocytes # (auto) 0.7 10 ^3/uL (0.4-5.4); Lymphocytes % (auto) 4.3 % (10.0-50.0); Mean Corpuscular Hemoglobin 32.2 pg (28.0-32.0); Mean Corpuscular Hgb Conc. 32.5 g/dL (32.0-36.0); Monocytes # (auto) 1.2 10 ^3/uL (0-1.3); Monocytes % (auto) 8.1 % (0.0-12.0); Neutrophils # (auto) 13.2 10 ^3/uL (1.6-8.6); Neutrophils % (auto) 86.3 % (37.0-80.0); Red Blood Cells 4.03 10^6/uL (4.5-5.90); Red Cell Distribution Width 13.2 % (11.8-14.3); White Blood Cell 15.3 10^3/uL (4.4-10.8)
[2022-11-23] MEDS: ACETYLCYSTEINE 20%(200MG/ML) SOL 4ML NEB SCH ×3 (07:08→22:30)
[2022-11-23 07:47] LABS: Base Excess 0.7 mmol/L (-2.0-2.0)
[2022-11-23] MEDS: LACTULOSE 20Gm/30ML SOLN PO SCH ×2 (09:57→22:16)
[2022-11-23] MEDS: SODIUM BICARBONATE 50ML VIAL 75 ML in D5W 5% 1,000 ML IV SCH (09:57)
[2022-11-23] MEDS: ENOXAPARIN SOD 100 MG/1 ML SYRINGE SC SCH (09:57)
[2022-11-23] MEDS: MEROPENEM 1GM IVPB 100 ML IV SCH ×2 (09:57→22:41)
[2022-11-23] MEDS: amLODIPine BESYLATE 5 MG TAB PO SCH (09:58)
[2022-11-23] MEDS: ASPirin 81 mg TAB PO SCH (09:58)
[2022-11-23] MEDS: METOPROLOL SUCCINATE XL 50 MG TAB PO SCH (09:58)
[2022-11-23] MEDS: TIMOLOL MALEATE 0.25 % OPTH SOL 5ML EACHEYE SCH ×2 (10:00→22:15)
[2022-11-23] MEDS: BUDESONIDE (INHALATION) 0.5 MG/2 ML NEB NEB SCH ×2 (10:06→22:29)
[2022-11-23] MEDS ORDERED: ROCURONIUM 10MG/ML 10ML VIAL IV ONE ×2 (11:40→11:45)
[2022-11-23] MEDS ORDERED: ETOMIDATE (2MG/ML) 20ML VIAL IV ONE ×3 (11:40→11:45)
[2022-11-23] MEDS ORDERED: MIDAZOLAM DRIP 50 mg/50mL 50 ML IV ONE (11:43)
[2022-11-23] MEDS ORDERED: fentaNYL Drip 2500mCg/250mlNS 250 ML IV ONE (11:43)
[2022-11-23] MEDS ORDERED: NOREPINEPHRINE 8 MG/250ML KIT 250 ML IV ONE (11:43)
[2022-11-23] MEDS: fentaNYL Drip 2500mCg/250mlNS 250 ML IV SCH (12:00)
[2022-11-23] MEDS: MIDAZOLAM DRIP 50 mg/50mL 50 ML IV SCH ×3 (12:00→22:41)
[2022-11-23 12:15] LABS: Alanine Aminotransferase 128 U/L (7-40); Albumin 3.3 g/dL (3.2-4.8); Alkaline Phosphatase 102 U/L (46-116); Anion Gap 12.5 (5-15); Aspartate Aminotransferase 106 U/L (13-40); BUN/Creatinine Ratio 55.7 (10.0-20.0); Calcium 8.2 mg/dL (8.5-10.1); Carbon Dioxide 22.5 mmol/L (20-30); Chloride 94 mmol/L (98-107); Potassium 4.3 mmol/L (3.5-5.1); Sodium 129 mmol/L (136-145)
[2022-11-23] MEDS ORDERED: PROPOFOL 100 ML IV ONE (12:16)
[2022-11-23 12:17] LABS: Bilirubin, Total 0.6 mg/dL (0.2-1.0); Total Protein 5.7 g/dL (5.7-8.2)
[2022-11-23 12:18] LABS: Glucose 260 mg/dL (74-106)
[2022-11-23] MEDS: PROPOFOL 100 ML IV SCH (12:18)
[2022-11-23 12:20] LABS: Blood Urea Nitrogen 88 mg/dL (9-23)
[2022-11-23] MEDS: NOREPINEPHRINE 8 MG/250ML KIT 250 ML IV SCH (12:45)
[2022-11-23 13:50] LABS: Base Excess -4.3 mmol/L (-2.0-2.0)
[2022-11-23] MEDS ORDERED: REMDESIVIR 100mg 100 MG in SODIUM CHL 0.9% 230 ML IV SCH ×2 (15:00→20:00)
[2022-11-23 16:14] LABS: INR 1.22 (0.9-1.15); Prothrombin Time 12.6 sec (9.3-11.8)
[2022-11-23] MEDS: DexAMETHasone INJECTION 10 MG in D5W 5% 50 ML IV SCH (17:49)
[2022-11-23] MEDS: LATANOPROST 0.005 % OPTH(EYE) SOL 2.5ML EACHEYE SCH (22:15)
[2022-11-24] VITALS (108 sets, daily range): BP systolic 87–133; BP diastolic 39–72; PULSE 44–80; RESP 16–21; TEMP 94.6–98.1; O2SAT 96–100
[2022-11-24] MEDS: NOREPINEPHRINE 8 MG/250ML KIT 250 ML IV SCH ×2 (00:32→14:54)
[2022-11-24] MEDS: SODIUM BICARBONATE 50ML VIAL 75 ML in D5W 5% 1,000 ML IV SCH (02:11)
[2022-11-24] MEDS: IPRATROPIUM BROM 0.5 MG/2.5ML INH SOL NEB SCH ×6 (02:27→22:09)
[2022-11-24] MEDS: ALBUTEROL SULF 2.5 MG/0.5ML(0.5%) NEB SOLN NEB PRN ×5 (02:27→22:09)
[2022-11-24 04:29] LABS: Hematocrit 33.3 % (41.0-53.0); Hemoglobin 10.9 g/dL (13.5-17.5); Mean Corpuscular Hemoglobin 31.5 pg (28.0-32.0); Mean Corpuscular Hgb Conc. 32.7 g/dL (32.0-36.0); Mean Corpuscular Volume 96.4 fL (80.0-100.0); Red Blood Cells 3.45 10^6/uL (4.5-5.90); Red Cell Distribution Width 13.3 % (11.8-14.3); White Blood Cell 17.8 10^3/uL (4.4-10.8)
[2022-11-24 04:54] LABS: Basophils % (manual) 0 (0.0-2.0); Blast Cells 0; Eosinophils % (manual) 0 (0-7); Myelocytes % 0; Promyelocytes % 0
[2022-11-24] MEDS: fentaNYL Drip 2500mCg/250mlNS 250 ML IV SCH (04:58)
[2022-11-24 04:59] LABS: Alanine Aminotransferase 98 U/L (7-40); Albumin 3.1 g/dL (3.2-4.8); Alkaline Phosphatase 92 U/L (46-116); Anion Gap 8.3 (5-15); Aspartate Aminotransferase 58 U/L (13-40); BUN/Creatinine Ratio 34.4 (10.0-20.0); Calcium 7.8 mg/dL (8.7-10.4); Carbon Dioxide 26.7 mmol/L (20-30); Chloride 91 mmol/L (98-107); Potassium 4.4 mmol/L (3.5-5.1); Sodium 126 mmol/L (136-145)
[2022-11-24 05:00] LABS: Bilirubin, Total 0.3 mg/dL (0.2-1.0); Total Protein 5.6 g/dL (5.7-8.2)
[2022-11-24 05:15] LABS: Blood Urea Nitrogen 78 mg/dL (9-23); Glucose 486 mg/dL (74-106)
[2022-11-24 05:41] LABS: CRP High Sensitivity 11.34 mg/dL (<1.0)
[2022-11-24] MEDS: ACCU-CHEK COMFORT CURVE STRIP VI SCH ×7 (06:00→23:53)
[2022-11-24] MEDS: InsuLIN REG 1unit/0.01ml Soln (100units/ml) SC SCH ×6 (06:00→23:54)
[2022-11-24] MEDS: ACETYLCYSTEINE 20%(200MG/ML) SOL 4ML NEB SCH ×3 (06:21→22:09)
[2022-11-24] MEDS: BUDESONIDE (INHALATION) 0.5 MG/2 ML NEB NEB SCH ×2 (06:21→22:09)
[2022-11-24] MEDS: SODIUM CHLOR 0.9% PF (SALINE LOCK) 10ML VIAL/SYR IV SCH ×3 (06:24→22:02)
[2022-11-24 06:35] LABS: Erythrocyte Sedimentation Rate 78 mm/hr (0-20)
[2022-11-24] MEDS: INSULIN LANTUS (GLARGINE) 1 /0.01ml (100units/ml) SC SCH ×2 (06:41→22:04)
[2022-11-24] MEDS ORDERED: SODIUM BICARBONATE 8.4 % INJ 50ML VIAL IV ONE (07:30)
[2022-11-24 07:33] LABS: Base Excess -2.5 mmol/L (-2.0-2.0)
[2022-11-24] MEDS: EMPAGLIFLOZIN 10 MG TAB PO SCH (08:07)
[2022-11-24 08:19] LABS: Band Neutrophils % (manual) 6; Lymphocytes % (manual) 2 (10.0-50.0); Metamyelocytes % 1; Monocytes % (manual) 3 (0-12); Platelet Estimate Adequate; RBC Morphology Normal; Reactive Lymphocytes 1
[2022-11-24] MEDS: SODIUM CHLORIDE 0.9% 1,000 ML IV SCH ×2 (08:25→21:05)
[2022-11-24] MEDS: ASPirin 81 mg TAB PO SCH (09:35)
[2022-11-24] MEDS: LACTULOSE 20Gm/30ML SOLN PO SCH ×2 (09:35→22:02)
[2022-11-24] MEDS: MEROPENEM 1GM IVPB 100 ML IV SCH ×2 (09:35→22:02)
[2022-11-24] MEDS: TIMOLOL MALEATE 0.25 % OPTH SOL 5ML EACHEYE SCH ×2 (09:42→22:05)
[2022-11-24] MEDS: ENOXAPARIN SOD 100 MG/1 ML SYRINGE SC SCH (10:00)
[2022-11-24] MEDS: amLODIPine BESYLATE 5 MG TAB PO SCH (10:00)
[2022-11-24] MEDS: METOPROLOL SUCCINATE XL 50 MG TAB PO SCH (10:00)
[2022-11-24] MEDS ORDERED: DEXTROSE (50%) 50ML SYRG IV PRN (11:00)
[2022-11-24] MEDS ORDERED: EPINEPHrine HCL 1 MG/1 ML AMP ONE (11:01)
[2022-11-24] MEDS ORDERED: FLUMAZENIL 0.1 MG/ML INJ 10ML MDV IV ONE (11:01)
[2022-11-24] MEDS ORDERED: NALOXONE HCL 0.4 MG/ML VIAL ONE (11:01)
[2022-11-24] MEDS ORDERED: SODIUM CHLORIDE LOCK 0 ML ONE (11:01)
[2022-11-24] MEDS ORDERED: LIDOCAINE 2% JELLY 11ml (GLYDO) ONE (11:01)
[2022-11-24] MEDS ORDERED: LIDOCAINE 2%HCL (LOCAL ANESTH.) INJ 20ML MDV ONE (11:01)
[2022-11-24] MEDS ORDERED: fentaNYL CITRATE 100 MCG/2 ML VL ONE (11:02)
[2022-11-24] MEDS ORDERED: MIDAZOLAM HCL 5 MG/ML-1ML VIAL ONE (11:02)
[2022-11-24] MEDS ORDERED: GLYCOPYRROLATE 0.2 MG/ML 1ML VIAL ONE (11:03)
[2022-11-24] MEDS: DexAMETHasone INJECTION 10 MG in D5W 5% 50 ML IV SCH (11:29)
[2022-11-24] MEDS: PROPOFOL 100 ML IV SCH (12:30)
[2022-11-24 12:55] LABS: Base Excess -0.5 mmol/L (-2.0-2.0)
[2022-11-24] MEDS ORDERED: INSULIN LISPRO (HUMAN) 100 UNITS/ML ML SC ONE (13:00)
[2022-11-24] MEDS: REMDESIVIR 100mg 100 MG in SODIUM CHL 0.9% 230 ML IV SCH (21:05)
[2022-11-24] MEDS ORDERED: INSULIN LANTUS (GLARGINE) 1 /0.01ml (100units/ml) SC SCH (22:00)
[2022-11-24] MEDS: LATANOPROST 0.005 % OPTH(EYE) SOL 2.5ML EACHEYE SCH (22:05)
[2022-11-25] VITALS (105 sets, daily range): BP systolic 99–154; BP diastolic 37–63; PULSE 55–88; RESP 15–21; TEMP 96.3–99.5; O2SAT 95–100
[2022-11-25] MEDS: ALBUTEROL SULF 2.5 MG/0.5ML(0.5%) NEB SOLN NEB PRN ×6 (02:27→22:45)
[2022-11-25] MEDS: IPRATROPIUM BROM 0.5 MG/2.5ML INH SOL NEB SCH ×6 (02:27→22:45)
[2022-11-25] MEDS: ACCU-CHEK COMFORT CURVE STRIP VI SCH ×4 (03:55→23:43)
[2022-11-25] MEDS: InsuLIN REG 1unit/0.01ml Soln (100units/ml) SC SCH ×5 (03:57→23:43)
[2022-11-25 04:37] LABS: Hematocrit 32.9 % (41.0-53.0); Mean Corpuscular Hemoglobin 32.4 pg (28.0-32.0); Mean Corpuscular Hgb Conc. 33.5 g/dL (32.0-36.0); Mean Corpuscular Volume 96.6 fL (80.0-100.0); Red Blood Cells 3.41 10^6/uL (4.5-5.90); Red Cell Distribution Width 13.1 % (11.8-14.3); White Blood Cell 22.1 10^3/uL (4.4-10.8)
[2022-11-25 04:38] LABS: Alanine Aminotransferase 76 U/L (7-40); Albumin 3.2 g/dL (3.2-4.8); Alkaline Phosphatase 93 U/L (46-116); Anion Gap 9.1 (5-15); Aspartate Aminotransferase 30 U/L (13-40); BUN/Creatinine Ratio 37.1 (10.0-20.0); Calcium 8.3 mg/dL (8.7-10.4); Carbon Dioxide 27.9 mmol/L (20-30); Chloride 98 mmol/L (98-107); Magnesium 2.7 mg/dL (1.6-2.6); Potassium 4.2 mmol/L (3.5-5.1)
[2022-11-25 04:39] LABS: Bilirubin, Total 0.3 mg/dL (0.2-1.0); Total Protein 5.9 g/dL (5.7-8.2)
[2022-11-25 04:53] LABS: Band Neutrophils % (manual) 0; Basophils % (manual) 0 (0.0-2.0); Blast Cells 0; Eosinophils % (manual) 0 (0-7); Metamyelocytes % 0; Myelocytes % 0; Promyelocytes % 0; Reactive Lymphocytes 0
[2022-11-25 04:57] LABS: Glucose 192 mg/dL (74-106); Sodium 135 mmol/L (136-145)
[2022-11-25 04:58] LABS: Blood Urea Nitrogen 82 mg/dL (9-23)
[2022-11-25] MEDS: SODIUM CHLOR 0.9% PF (SALINE LOCK) 10ML VIAL/SYR IV SCH ×3 (06:02→21:39)
[2022-11-25] MEDS: NOREPINEPHRINE 8 MG/250ML KIT 250 ML IV SCH ×2 (06:23→17:48)
[2022-11-25] MEDS: EMPAGLIFLOZIN 10 MG TAB PO SCH (06:29)
[2022-11-25] MEDS: INSULIN LANTUS (GLARGINE) 1 /0.01ml (100units/ml) SC SCH ×2 (06:30→21:44)
[2022-11-25 06:51] LABS: Base Excess -1.6 mmol/L (-2.0-2.0)
[2022-11-25] MEDS: ACETYLCYSTEINE 20%(200MG/ML) SOL 4ML NEB SCH ×3 (06:58→22:46)
[2022-11-25 07:51] LABS: Lymphocytes % (manual) 7 (10.0-50.0); Monocytes % (manual) 4 (0-12); Platelet Estimate Adequate
[2022-11-25] MEDS: LACTULOSE 20Gm/30ML SOLN PO SCH ×2 (09:24→21:39)
[2022-11-25] MEDS: MEROPENEM 1GM IVPB 100 ML IV SCH ×2 (09:26→21:39)
[2022-11-25] MEDS: DexAMETHasone INJECTION 10 MG in D5W 5% 50 ML IV SCH (09:26)
[2022-11-25] MEDS: SODIUM CHLORIDE 0.9% 1,000 ML IV SCH (09:26)
[2022-11-25] MEDS: BUDESONIDE (INHALATION) 0.5 MG/2 ML NEB NEB SCH ×2 (09:56→22:46)
[2022-11-25] MEDS: TIMOLOL MALEATE 0.25 % OPTH SOL 5ML EACHEYE SCH ×2 (10:00→21:39)
[2022-11-25] MEDS: ASPirin 81 mg TAB PO SCH (10:00)
[2022-11-25] MEDS: amLODIPine BESYLATE 5 MG TAB PO SCH (10:00)
[2022-11-25] MEDS ORDERED: DEXTROSE (50%) 50ML SYRG IV PRN (12:15)
[2022-11-25] MEDS: MIDAZOLAM DRIP 50 mg/50mL 50 ML IV SCH (12:30)
[2022-11-25] MEDS: fentaNYL Drip 2500mCg/250mlNS 250 ML IV SCH ×2 (12:30→17:44)
[2022-11-25] MEDS: PROPOFOL 100 ML IV SCH (12:30)
[2022-11-25] MEDS ORDERED: ENOXAPARIN SOD 40 MG/0.4 ML SYRINGE SC ONE (12:45)
[2022-11-25 14:43] LABS: Base Excess 2.4 mmol/L (-2.0-2.0)
[2022-11-25] MEDS ORDERED: Glucerna 1.2 Cal 1Liter BOTTLE GT SCH (19:00)
[2022-11-25] MEDS: REMDESIVIR 100mg 100 MG in SODIUM CHL 0.9% 230 ML IV SCH (20:53)
[2022-11-25] MEDS: LATANOPROST 0.005 % OPTH(EYE) SOL 2.5ML EACHEYE SCH (21:39)
[2022-11-26] VITALS (104 sets, daily range): BP systolic 112–148; BP diastolic 40–62; PULSE 65–101; RESP 11–29; TEMP 97–99.5; O2SAT 96–100
[2022-11-26] MEDS: ALBUTEROL SULF 2.5 MG/0.5ML(0.5%) NEB SOLN NEB PRN ×6 (02:53→22:09)
[2022-11-26] MEDS: IPRATROPIUM BROM 0.5 MG/2.5ML INH SOL NEB SCH ×6 (02:53→22:09)
[2022-11-26 04:54] LABS: Hematocrit 29.2 % (41.0-53.0); Hemoglobin 9.7 g/dL (13.5-17.5); Mean Corpuscular Hemoglobin 32.7 pg (28.0-32.0); Mean Corpuscular Hgb Conc. 33.3 g/dL (32.0-36.0); Mean Corpuscular Volume 98.2 fL (80.0-100.0); Red Blood Cells 2.97 10^6/uL (4.5-5.90); Red Cell Distribution Width 13.1 % (11.8-14.3); White Blood Cell 19.9 10^3/uL (4.4-10.8)
[2022-11-26] MEDS: SODIUM CHLORIDE 0.9% 1,000 ML IV SCH ×2 (05:16→12:50)
[2022-11-26 05:20] LABS: Carbon Dioxide 27.4 mmol/L (20-30)
[2022-11-26 05:42] LABS: Basophils % (manual) 0 (0.0-2.0); Blast Cells 0; Eosinophils % (manual) 0 (0-7); Metamyelocytes % 0; Myelocytes % 0; Promyelocytes % 0; Reactive Lymphocytes 0
[2022-11-26] MEDS: ACCU-CHEK COMFORT CURVE STRIP VI SCH ×3 (06:23→17:25)
[2022-11-26] MEDS: SODIUM CHLOR 0.9% PF (SALINE LOCK) 10ML VIAL/SYR IV SCH ×3 (06:23→21:37)
[2022-11-26] MEDS: ACETYLCYSTEINE 20%(200MG/ML) SOL 4ML NEB SCH ×3 (06:32→22:09)
[2022-11-26] MEDS: EMPAGLIFLOZIN 10 MG TAB PO SCH (06:32)
[2022-11-26] MEDS: InsuLIN REG 1unit/0.01ml Soln (100units/ml) SC SCH ×3 (06:33→17:26)
[2022-11-26] MEDS: INSULIN LANTUS (GLARGINE) 1 /0.01ml (100units/ml) SC SCH ×2 (06:33→21:36)
[2022-11-26 06:36] LABS: Alanine Aminotransferase 58 U/L (7-40); Albumin 2.8 g/dL (3.2-4.8); Alkaline Phosphatase 77 U/L (46-116); Anion Gap 6.6 (5-15); Aspartate Aminotransferase 24 U/L (13-40); BUN/Creatinine Ratio 47.7 (10.0-20.0); Bilirubin, Total 0.3 mg/dL (0.2-1.0); CRP High Sensitivity 5.06 mg/dL (<1.0); Calcium 8.1 mg/dL (8.5-10.1); Chloride 104 mmol/L (98-107); Glucose 231 mg/dL (74-106); Magnesium 3.2 mg/dL (1.6-2.6); Phosphorus 5.3 mg/dL (2.4-5.1); Sodium 138 mmol/L (136-145); Total Protein 5.3 g/dL (5.7-8.2)
[2022-11-26 06:41] LABS: Blood Urea Nitrogen 93 mg/dL (9-23)
[2022-11-26 07:34] LABS: Base Excess -0.9 mmol/L (-2.0-2.0)
[2022-11-26 09:02] LABS: Erythrocyte Sedimentation Rate 63 mm/hr (0-20)
[2022-11-26 09:30] LABS: Band Neutrophils % (manual) 1; Lymphocytes % (manual) 11 (10.0-50.0); Monocytes % (manual) 5 (0-12)
[2022-11-26 09:31] LABS: Platelet Estimate Adequate
[2022-11-26] MEDS ORDERED: ENOXAPARIN SOD 30 MG/0.3 ML SYRINGE SC SCH (10:00)
[2022-11-26] MEDS: TIMOLOL MALEATE 0.25 % OPTH SOL 5ML EACHEYE SCH ×2 (10:00→21:49)
[2022-11-26] MEDS: BUDESONIDE (INHALATION) 0.5 MG/2 ML NEB NEB SCH ×2 (10:16→22:09)
[2022-11-26] MEDS: LACTULOSE 20Gm/30ML SOLN PO SCH ×2 (11:35→21:37)
[2022-11-26] MEDS: MEROPENEM 1GM IVPB 100 ML IV SCH ×2 (11:35→21:34)
[2022-11-26] MEDS: ASPirin 81 mg TAB PO SCH (11:35)
[2022-11-26] MEDS: amLODIPine BESYLATE 5 MG TAB PO SCH (11:36)
[2022-11-26] MEDS: DexAMETHasone INJECTION 10 MG in D5W 5% 50 ML IV SCH (11:36)
[2022-11-26] MEDS: ENOXAPARIN SOD 40 MG/0.4 ML SYRINGE SC SCH (11:37)
[2022-11-26] MEDS: MIDAZOLAM DRIP 50 mg/50mL 50 ML IV SCH (12:30)
[2022-11-26] MEDS: PROPOFOL 100 ML IV SCH (12:30)
[2022-11-26] MEDS: REMDESIVIR 100mg 100 MG in SODIUM CHL 0.9% 230 ML IV SCH (21:03)
[2022-11-26] MEDS: LATANOPROST 0.005 % OPTH(EYE) SOL 2.5ML EACHEYE SCH (21:49)
[2022-11-27] VITALS (107 sets, daily range): BP systolic 130–182; BP diastolic 51–94; PULSE 72–95; RESP 14–36; TEMP 97.8–99; O2SAT 94–100
[2022-11-27] MEDS: ACCU-CHEK COMFORT CURVE STRIP VI SCH ×5 (00:13→23:56)
[2022-11-27] MEDS: InsuLIN REG 1unit/0.01ml Soln (100units/ml) SC SCH ×5 (00:14→23:56)
[2022-11-27] MEDS: SODIUM CHLORIDE 0.9% 1,000 ML IV SCH ×2 (02:10→15:48)
[2022-11-27] MEDS: ALBUTEROL SULF 2.5 MG/0.5ML(0.5%) NEB SOLN NEB PRN ×4 (02:38→14:17)
[2022-11-27] MEDS: IPRATROPIUM BROM 0.5 MG/2.5ML INH SOL NEB SCH ×6 (02:38→22:23)
[2022-11-27 04:12] LABS: Hematocrit 30.7 % (41.0-53.0); Hemoglobin 10.3 g/dL (13.5-17.5); Mean Corpuscular Hemoglobin 32.3 pg (28.0-32.0); Mean Corpuscular Hgb Conc. 33.5 g/dL (32.0-36.0); Mean Corpuscular Volume 96.5 fL (80.0-100.0); Red Blood Cells 3.18 10^6/uL (4.5-5.90); Red Cell Distribution Width 13.2 % (11.8-14.3); White Blood Cell 18.5 10^3/uL (4.4-10.8)
[2022-11-27 04:26] LABS: Basophils % (manual) 0 (0.0-2.0); Blast Cells 0; Eosinophils % (manual) 0 (0-7); Metamyelocytes % 0; Myelocytes % 0; Promyelocytes % 0; Reactive Lymphocytes 0
[2022-11-27 04:38] LABS: Anion Gap 6.4 (5-15); Carbon Dioxide 27.6 mmol/L (20-30); Chloride 108 mmol/L (98-107); Potassium 3.9 mmol/L (3.5-5.1); Sodium 142 mmol/L (136-145)
[2022-11-27 04:40] LABS: Calcium 8.6 mg/dL (8.7-10.4)
[2022-11-27 04:44] LABS: Glucose 238 mg/dL (74-106)
[2022-11-27 04:45] LABS: BUN/Creatinine Ratio 55.9 (10.0-20.0)
[2022-11-27 04:54] LABS: Blood Urea Nitrogen 90 mg/dL (9-23)
[2022-11-27] MEDS: SODIUM CHLOR 0.9% PF (SALINE LOCK) 10ML VIAL/SYR IV SCH ×3 (05:35→21:47)
[2022-11-27] MEDS: ACETYLCYSTEINE 20%(200MG/ML) SOL 4ML NEB SCH ×3 (05:59→22:24)
[2022-11-27] MEDS: EMPAGLIFLOZIN 10 MG TAB PO SCH (06:30)
[2022-11-27] MEDS: INSULIN LANTUS (GLARGINE) 1 /0.01ml (100units/ml) SC SCH ×2 (06:34→22:04)
[2022-11-27] MEDS ORDERED: DexmedeTOMIDine 200 MCG in D5W 5% 48 ML IV SCH (07:30)
[2022-11-27 08:19] LABS: Band Neutrophils % (manual) 2; Lymphocytes % (manual) 4 (10.0-50.0); Monocytes % (manual) 2 (0-12)
[2022-11-27 08:21] LABS: Platelet Estimate Adequate
[2022-11-27] MEDS: LACTULOSE 20Gm/30ML SOLN PO SCH ×2 (08:48→21:47)
[2022-11-27] MEDS: ASPirin 81 mg TAB PO SCH (08:48)
[2022-11-27] MEDS: DexAMETHasone INJECTION 10 MG in D5W 5% 50 ML IV SCH (08:48)
[2022-11-27] MEDS: ENOXAPARIN SOD 40 MG/0.4 ML SYRINGE SC SCH (08:48)
[2022-11-27] MEDS: TIMOLOL MALEATE 0.25 % OPTH SOL 5ML EACHEYE SCH ×2 (08:49→22:05)
[2022-11-27] MEDS: amLODIPine BESYLATE 5 MG TAB PO SCH (08:49)
[2022-11-27] MEDS: BUDESONIDE (INHALATION) 0.5 MG/2 ML NEB NEB SCH ×2 (10:07→22:23)
[2022-11-27] MEDS: MEROPENEM 1GM IVPB 100 ML IV SCH ×2 (10:13→21:47)
[2022-11-27] MEDS: NOREPINEPHRINE 8 MG/250ML KIT 250 ML IV SCH (12:30)
[2022-11-27] MEDS: fentaNYL Drip 2500mCg/250mlNS 250 ML IV SCH (12:30)
[2022-11-27] MEDS: MIDAZOLAM DRIP 50 mg/50mL 50 ML IV SCH (12:30)
[2022-11-27] MEDS: PROPOFOL 100 ML IV SCH (12:30)
[2022-11-27 13:50] LABS: Base Excess 5.1 mmol/L (-2.0-2.0)
[2022-11-27] MEDS: LATANOPROST 0.005 % OPTH(EYE) SOL 2.5ML EACHEYE SCH (22:05)
[2022-11-27] MEDS: hydrALAZINE HCL 20 MG/ML VL IV PRN (23:43)
[2022-11-28] VITALS (86 sets, daily range): BP systolic 129–179; BP diastolic 60–89; PULSE 73–124; RESP 12–46; TEMP 97–99; O2SAT 94–100
[2022-11-28] MEDS: IPRATROPIUM BROM 0.5 MG/2.5ML INH SOL NEB SCH ×6 (02:21→22:09)
[2022-11-28 04:04] LABS: Hematocrit 33.5 % (41.0-53.0); Hemoglobin 11.1 g/dL (13.5-17.5); Mean Corpuscular Hemoglobin 31.8 pg (28.0-32.0); Mean Corpuscular Hgb Conc. 33.2 g/dL (32.0-36.0); Mean Corpuscular Volume 95.6 fL (80.0-100.0); Red Cell Distribution Width 13.1 % (11.8-14.3); White Blood Cell 22.5 10^3/uL (4.4-10.8)
[2022-11-28 04:09] LABS: Chloride 116 mmol/L (98-107)
[2022-11-28 04:10] LABS: Anion Gap 2.6 (5-15); Calcium 8.9 mg/dL (8.7-10.4); Carbon Dioxide 32.4 mmol/L (20-30)
[2022-11-28 04:15] LABS: BUN/Creatinine Ratio 68.4 (10.0-20.0)
[2022-11-28 04:27] LABS: Basophils % (manual) 0 (0.0-2.0); Blast Cells 0; Eosinophils % (manual) 0 (0-7); Promyelocytes % 0; Reactive Lymphocytes 0
[2022-11-28 04:28] LABS: Blood Urea Nitrogen 67 mg/dL (9-23); Glucose 55 mg/dL (74-106); Sodium 151 mmol/L (136-145)
[2022-11-28] MEDS: SODIUM CHLORIDE 0.9% 1,000 ML IV SCH (04:50)
[2022-11-28] MEDS: SODIUM CHLOR 0.9% PF (SALINE LOCK) 10ML VIAL/SYR IV SCH ×3 (05:43→21:17)
[2022-11-28] MEDS: ACCU-CHEK COMFORT CURVE STRIP VI SCH ×3 (05:47→18:42)
[2022-11-28] MEDS: InsuLIN REG 1unit/0.01ml Soln (100units/ml) SC SCH ×3 (05:47→18:41)
[2022-11-28] MEDS: ALBUTEROL SULF 2.5 MG/0.5ML(0.5%) NEB SOLN NEB PRN ×4 (06:16→22:09)
[2022-11-28] MEDS: ACETYLCYSTEINE 20%(200MG/ML) SOL 4ML NEB SCH ×3 (06:17→18:40)
[2022-11-28] MEDS: BUDESONIDE (INHALATION) 0.5 MG/2 ML NEB NEB SCH ×2 (06:17→18:39)
[2022-11-28] MEDS: INSULIN LANTUS (GLARGINE) 1 /0.01ml (100units/ml) SC SCH ×2 (07:00→21:35)
[2022-11-28] MEDS: EMPAGLIFLOZIN 10 MG TAB PO SCH (07:14)
[2022-11-28] MEDS: DexAMETHasone INJECTION 10 MG in D5W 5% 50 ML IV SCH (08:03)
[2022-11-28] MEDS: ENOXAPARIN SOD 40 MG/0.4 ML SYRINGE SC SCH (08:03)
[2022-11-28] MEDS: LACTULOSE 20Gm/30ML SOLN PO SCH ×2 (08:03→21:17)
[2022-11-28] MEDS: amLODIPine BESYLATE 5 MG TAB PO SCH (08:04)
[2022-11-28] MEDS: ASPirin 81 mg TAB PO SCH (08:04)
[2022-11-28] MEDS: hydrALAZINE HCL 20 MG/ML VL IV PRN (08:08)
[2022-11-28 08:24] LABS: Band Neutrophils % (manual) 1; Lymphocytes % (manual) 8 (10.0-50.0); Metamyelocytes % 1; Monocytes % (manual) 10 (0-12); Myelocytes % 3; Platelet Estimate Adequate
[2022-11-28] MEDS ORDERED: D5W 5% 1,000 ML IV ONE (09:30)
[2022-11-28] MEDS: TIMOLOL MALEATE 0.25 % OPTH SOL 5ML EACHEYE SCH ×2 (10:00→21:34)
[2022-11-28] MEDS ORDERED: METOPROLOL TARTRATE 50 MG TAB PO ONE (11:30)
[2022-11-28] MEDS: MEROPENEM 1GM IVPB 100 ML IV SCH ×2 (11:32→21:17)
[2022-11-28] MEDS: PANTOPRAZOLE 40 MG/10 ML VIAL INJ IV SCH (11:43)
[2022-11-28] MEDS: NOREPINEPHRINE 8 MG/250ML KIT 250 ML IV SCH (12:30)
[2022-11-28] MEDS: PROPOFOL 100 ML IV SCH (12:30)
[2022-11-28] MEDS: fentaNYL Drip 2500mCg/250mlNS 250 ML IV SCH (12:30)
[2022-11-28] MEDS: MIDAZOLAM DRIP 50 mg/50mL 50 ML IV SCH (12:30)
[2022-11-28] MEDS ORDERED: METOPROLOL TARTRATE 1MG/1ML-5ML VIAL IV ONE (13:30)
[2022-11-28] MEDS: METOPROLOL TARTRATE 50 MG TAB PO SCH (21:34)
[2022-11-28] MEDS: LATANOPROST 0.005 % OPTH(EYE) SOL 2.5ML EACHEYE SCH (21:34)
[2022-11-28] MEDS: ACETAMINOPHEN 325 MG TAB PO PRN (21:35)
[2022-11-28] MEDS: METOPROLOL TARTRATE 1MG/1ML-5ML VIAL IV SCH (21:37)
[2022-11-29] VITALS (38 sets, daily range): BP systolic 127–153; BP diastolic 55–102; PULSE 61–99; RESP 18–42; TEMP 96.1–98.1; O2SAT 94–100
[2022-11-29] MEDS: ACCU-CHEK COMFORT CURVE STRIP VI SCH ×4 (00:12→17:40)
[2022-11-29] MEDS: IPRATROPIUM BROM 0.5 MG/2.5ML INH SOL NEB SCH ×6 (02:13→22:34)
[2022-11-29] MEDS: ALBUTEROL SULF 2.5 MG/0.5ML(0.5%) NEB SOLN NEB PRN ×5 (02:13→22:34)
[2022-11-29 04:27] LABS: Alanine Aminotransferase 31 U/L (7-40); Albumin 3.1 g/dL (3.2-4.8); Alkaline Phosphatase 72 U/L (46-116); Anion Gap 5.5 (5-15); Aspartate Aminotransferase 24 U/L (13-40); BUN/Creatinine Ratio 56.9 (10.0-20.0); Blood Urea Nitrogen 58 mg/dL (9-23); Calcium 8.9 mg/dL (8.7-10.4); Carbon Dioxide 29.5 mmol/L (20-30); Chloride 117 mmol/L (98-107); Glucose 126 mg/dL (74-106); Magnesium 2.8 mg/dL (1.6-2.6); Phosphorus 3.6 mg/dL (2.4-5.1); Potassium 4.3 mmol/L (3.5-5.1); Sodium 152 mmol/L (136-145)
[2022-11-29 04:28] LABS: Bilirubin, Total 0.7 mg/dL (0.2-1.0); Total Protein 5.8 g/dL (5.7-8.2)
[2022-11-29 04:44] LABS: Hematocrit 32.5 % (41.0-53.0); Hemoglobin 10.6 g/dL (13.5-17.5); Mean Corpuscular Hemoglobin 31.4 pg (28.0-32.0); Mean Corpuscular Hgb Conc. 32.5 g/dL (32.0-36.0); Mean Corpuscular Volume 96.9 fL (80.0-100.0); Red Blood Cells 3.36 10^6/uL (4.5-5.90); Red Cell Distribution Width 13.2 % (11.8-14.3)
[2022-11-29 04:52] LABS: Basophils % (manual) 0 (0.0-2.0); Blast Cells 0; Eosinophils % (manual) 0 (0-7); Promyelocytes % 0; Reactive Lymphocytes 0
[2022-11-29] MEDS: ACETAMINOPHEN 325 MG TAB PO PRN (06:48)
[2022-11-29] MEDS: InsuLIN REG 1unit/0.01ml Soln (100units/ml) SC SCH ×4 (06:54→17:40)
[2022-11-29] MEDS: ACETYLCYSTEINE 20%(200MG/ML) SOL 4ML NEB SCH ×3 (06:55→22:34)
[2022-11-29] MEDS: INSULIN LANTUS (GLARGINE) 1 /0.01ml (100units/ml) SC SCH ×3 (06:55→22:59)
[2022-11-29] MEDS: EMPAGLIFLOZIN 10 MG TAB PO SCH (06:55)
[2022-11-29] MEDS: SODIUM CHLOR 0.9% PF (SALINE LOCK) 10ML VIAL/SYR IV SCH ×3 (06:55→22:48)
[2022-11-29 08:12] LABS: Band Neutrophils % (manual) 1; Lymphocytes % (manual) 3 (10.0-50.0); Metamyelocytes % 1; Monocytes % (manual) 4 (0-12); Myelocytes % 5; Platelet Estimate Adequate
[2022-11-29] MEDS: LACTULOSE 20Gm/30ML SOLN PO SCH ×2 (09:33→22:48)
[2022-11-29] MEDS: ENOXAPARIN SOD 40 MG/0.4 ML SYRINGE SC SCH (09:33)
[2022-11-29] MEDS: PANTOPRAZOLE 40 MG/10 ML VIAL INJ IV SCH (09:33)
[2022-11-29] MEDS: DexAMETHasone INJECTION 10 MG in D5W 5% 50 ML IV SCH (09:33)
[2022-11-29] MEDS: amLODIPine BESYLATE 5 MG TAB PO SCH (09:34)
[2022-11-29] MEDS: ASPirin 81 mg TAB PO SCH (09:34)
[2022-11-29] MEDS: METOPROLOL TARTRATE 50 MG TAB PO SCH ×2 (09:34→22:49)
[2022-11-29] MEDS: METOPROLOL TARTRATE 1MG/1ML-5ML VIAL IV SCH (10:00)
[2022-11-29] MEDS: TIMOLOL MALEATE 0.25 % OPTH SOL 5ML EACHEYE SCH ×2 (10:00→23:00)
[2022-11-29] MEDS: MEROPENEM 1GM IVPB 100 ML IV SCH ×2 (10:04→22:00)
[2022-11-29] MEDS: BUDESONIDE (INHALATION) 0.5 MG/2 ML NEB NEB SCH ×2 (10:07→19:12)
[2022-11-29] MEDS: NOREPINEPHRINE 8 MG/250ML KIT 250 ML IV SCH (11:41)
[2022-11-29] MEDS: fentaNYL Drip 2500mCg/250mlNS 250 ML IV SCH (11:41)
[2022-11-29] MEDS: PROPOFOL 100 ML IV SCH (11:41)
[2022-11-29] MEDS: MIDAZOLAM DRIP 50 mg/50mL 50 ML IV SCH (11:42)
[2022-11-29] MEDS: D5W 5% 1,000 ML IV SCH ×2 (12:00→21:11)
[2022-11-29] MEDS ORDERED: FUROSEMIDE 40 MG/4 ML VIAL IV ONE (16:45)
[2022-11-29] MEDS ORDERED: FUROSEMIDE 40 MG/4 ML VIAL ONE (17:09)
[2022-11-29] MEDS: LATANOPROST 0.005 % OPTH(EYE) SOL 2.5ML EACHEYE SCH (22:59)
[2022-11-29 23:28] LABS: COVID19 ANTIGEN SOFIA FIA NEGATIVE (NEGATIVE)
[2022-11-30] VITALS (42 sets, daily range): BP systolic 100–129; BP diastolic 43–78; PULSE 65–104; RESP 12–41; TEMP 97.2–99.2; O2SAT 90–100
[2022-11-30] MEDS: ACCU-CHEK COMFORT CURVE STRIP VI SCH ×4 (00:20→17:25)
[2022-11-30] MEDS: InsuLIN REG 1unit/0.01ml Soln (100units/ml) SC SCH ×4 (00:52→17:26)
[2022-11-30] MEDS: IPRATROPIUM BROM 0.5 MG/2.5ML INH SOL NEB SCH ×6 (02:32→22:28)
[2022-11-30] MEDS: ALBUTEROL SULF 2.5 MG/0.5ML(0.5%) NEB SOLN NEB PRN ×6 (02:32→22:28)
[2022-11-30] MEDS: ACETYLCYSTEINE 20%(200MG/ML) SOL 4ML NEB SCH ×3 (06:09→22:28)
[2022-11-30] MEDS: SODIUM CHLOR 0.9% PF (SALINE LOCK) 10ML VIAL/SYR IV SCH ×3 (06:27→20:52)
[2022-11-30] MEDS: INSULIN LANTUS (GLARGINE) 1 /0.01ml (100units/ml) SC SCH ×2 (06:28→20:56)
[2022-11-30] MEDS: EMPAGLIFLOZIN 10 MG TAB PO SCH (06:29)
[2022-11-30] MEDS: D5W 5% 1,000 ML IV SCH ×2 (07:24→16:46)
[2022-11-30] MEDS: ENOXAPARIN SOD 40 MG/0.4 ML SYRINGE SC SCH (07:52)
[2022-11-30] MEDS: LACTULOSE 20Gm/30ML SOLN PO SCH ×2 (07:52→20:52)
[2022-11-30] MEDS: ASPirin 81 mg TAB PO SCH (07:53)
[2022-11-30] MEDS: METOPROLOL TARTRATE 50 MG TAB PO SCH ×2 (07:53→20:56)
[2022-11-30] MEDS: amLODIPine BESYLATE 5 MG TAB PO SCH (07:53)
[2022-11-30] MEDS: PANTOPRAZOLE 40 MG/10 ML VIAL INJ IV SCH (07:54)
[2022-11-30] MEDS: TIMOLOL MALEATE 0.25 % OPTH SOL 5ML EACHEYE SCH ×2 (07:54→20:55)
[2022-11-30] MEDS: DexAMETHasone INJECTION 10 MG in D5W 5% 50 ML IV SCH (08:54)
[2022-11-30 09:52] LABS: Chloride 115 mmol/L (98-107); Potassium 4.2 mmol/L (3.5-5.1)
[2022-11-30 09:53] LABS: Anion Gap 5.4 (5-15); Calcium 8.7 mg/dL (8.5-10.1); Carbon Dioxide 26.6 mmol/L (20-30)
[2022-11-30 09:58] LABS: BUN/Creatinine Ratio 35.3 (10.0-20.0); Basophils # (auto) 0.1 10 ^3/uL (0-0.2); Basophils % (auto) 0.3 % (0.0-2.0); Eosinophils # (auto) 0 10 ^3/uL (0-0.8); Eosinophils % (auto) 0.2 % (0.0-7.0); Glucose 191 mg/dL (74-106); Hematocrit 35.8 % (41.0-53.0); Hemoglobin 11.2 g/dL (13.5-17.5); Lymphocytes # (auto) 1.3 10 ^3/uL (0.4-5.4); Lymphocytes % (auto) 7.4 % (10.0-50.0); Mean Corpuscular Hgb Conc. 31.2 g/dL (32.0-36.0); Mean Corpuscular Volume 99.5 fL (80.0-100.0); Monocytes # (auto) 1.3 10 ^3/uL (0-1.3); Monocytes % (auto) 7.2 % (0.0-12.0); Neutrophils # (auto) 15.3 10 ^3/uL (1.6-8.6); Neutrophils % (auto) 84.9 % (37.0-80.0); Nucleated Red Blood Cells % 0.1 %; Red Cell Distribution Width 13.7 % (11.8-14.3)
[2022-11-30 10:02] LABS: Blood Urea Nitrogen 41 mg/dL (9-23); Sodium 147 mmol/L (136-145)
[2022-11-30] MEDS: MEROPENEM 1GM IVPB 100 ML IV SCH ×2 (10:23→20:52)
[2022-11-30] MEDS: BUDESONIDE (INHALATION) 0.5 MG/2 ML NEB NEB SCH ×2 (10:56→22:28)
[2022-11-30] MEDS: LATANOPROST 0.005 % OPTH(EYE) SOL 2.5ML EACHEYE SCH (20:54)
[2022-12-01] VITALS (26 sets, daily range): BP systolic 97–120; BP diastolic 40–64; PULSE 70–82; RESP 12–33; TEMP 97.8–99; O2SAT 90–100
[2022-12-01] MEDS: IPRATROPIUM BROM 0.5 MG/2.5ML INH SOL NEB SCH ×4 (01:59→13:42)
[2022-12-01] MEDS: ALBUTEROL SULF 2.5 MG/0.5ML(0.5%) NEB SOLN NEB PRN ×4 (01:59→13:42)
[2022-12-01] MEDS: D5W 5% 1,000 ML IV SCH (04:00)
[2022-12-01] MEDS: ACCU-CHEK COMFORT CURVE STRIP VI SCH ×3 (05:13→12:21)
[2022-12-01] MEDS: SODIUM CHLOR 0.9% PF (SALINE LOCK) 10ML VIAL/SYR IV SCH (05:23)
[2022-12-01] MEDS: InsuLIN REG 1unit/0.01ml Soln (100units/ml) SC SCH ×3 (05:23→11:58)
[2022-12-01 05:45] LABS: Basophils # (auto) 0 10 ^3/uL (0-0.2); Basophils % (auto) 0.1 % (0.0-2.0); Eosinophils # (auto) 0 10 ^3/uL (0-0.8); Eosinophils % (auto) 0.1 % (0.0-7.0); Hematocrit 30.5 % (41.0-53.0); Hemoglobin 10.1 g/dL (13.5-17.5); Lymphocytes # (auto) 1.5 10 ^3/uL (0.4-5.4); Lymphocytes % (auto) 7.2 % (10.0-50.0); Mean Corpuscular Hemoglobin 31.5 pg (28.0-32.0); Mean Corpuscular Volume 95.6 fL (80.0-100.0); Monocytes # (auto) 1.5 10 ^3/uL (0-1.3); Monocytes % (auto) 7.2 % (0.0-12.0); Neutrophils # (auto) 17.3 10 ^3/uL (1.6-8.6); Neutrophils % (auto) 85.4 % (37.0-80.0); Red Blood Cells 3.19 10^6/uL (4.5-5.90); Red Cell Distribution Width 13.2 % (11.8-14.3); White Blood Cell 20.3 10^3/uL (4.4-10.8)
[2022-12-01 06:03] LABS: Alanine Aminotransferase 33 U/L (7-40); Albumin 2.8 g/dL (3.2-4.8); Alkaline Phosphatase 67 U/L (46-116); Anion Gap 6.6 (5-15); Aspartate Aminotransferase 22 U/L (13-40); BUN/Creatinine Ratio 33.1 (10.0-20.0); Blood Urea Nitrogen 41 mg/dL (9-23); Calcium 8.4 mg/dL (8.7-10.4); Carbon Dioxide 24.4 mmol/L (20-30); Chloride 111 mmol/L (98-107); Glucose 164 mg/dL (74-106); Sodium 142 mmol/L (136-145)
[2022-12-01 06:04] LABS: Bilirubin, Total 0.7 mg/dL (0.2-1.0); Total Protein 5.2 g/dL (5.7-8.2)
[2022-12-01] MEDS: BUDESONIDE (INHALATION) 0.5 MG/2 ML NEB NEB SCH (06:55)
[2022-12-01] MEDS: ACETYLCYSTEINE 20%(200MG/ML) SOL 4ML NEB SCH ×2 (06:55→13:42)
[2022-12-01] MEDS: INSULIN LANTUS (GLARGINE) 1 /0.01ml (100units/ml) SC SCH (08:26)
[2022-12-01] MEDS: EMPAGLIFLOZIN 10 MG TAB PO SCH (08:26)
[2022-12-01] MEDS: MEROPENEM 1GM IVPB 100 ML IV SCH (09:58)
[2022-12-01] MEDS: ENOXAPARIN SOD 40 MG/0.4 ML SYRINGE SC SCH (09:59)
[2022-12-01] MEDS: amLODIPine BESYLATE 5 MG TAB PO SCH (10:00)
[2022-12-01] MEDS: PANTOPRAZOLE 40 MG/10 ML VIAL INJ IV SCH (10:00)
[2022-12-01] MEDS: ASPirin 81 mg TAB PO SCH (10:01)
[2022-12-01] MEDS: LACTULOSE 20Gm/30ML SOLN PO SCH (10:02)
[2022-12-01] MEDS: METOPROLOL TARTRATE 50 MG TAB PO SCH (10:02)
[2022-12-01] MEDS: TIMOLOL MALEATE 0.25 % OPTH SOL 5ML EACHEYE SCH (10:17)
[2022-12-01] MEDS: DexAMETHasone INJECTION 10 MG in D5W 5% 50 ML IV SCH (11:01)
[2022-12-01] MEDS ORDERED: MEROPENEM 1GM IVPB 100 ML IV SCH (22:00)
== END 2022-12-01 17:32 | DRG 870 ==
LOC: EDBD 18:06 → ER 18:06 → TELE 21:43 → TELE-WESTW 11-17 05:58 → ICU WEST 11-23 09:37 → DOU IN ICU 11-29 18:28
PROVIDERS: ADMIT Internal Medicine; ATTEND Internal Medicine
PROC: 5A09357 Assistance with Respiratory Ventilation, Less than 24 Consecutive Hours, Continuous Positive Airway Pressure (ICD-10-PCS; 2022-11-20)
PROC: 5A09357 Assistance with Respiratory Ventilation, Less than 24 Consecutive Hours, Continuous Positive Airway Pressure (ICD-10-PCS; 2022-11-21)
PROC: 5A09357 Assistance with Respiratory Ventilation, Less than 24 Consecutive Hours, Continuous Positive Airway Pressure (ICD-10-PCS; 2022-11-22)
PROC: XW033E5 Introduction of Remdesivir Anti-infective into Peripheral Vein, Percutaneous Approach, New Technology Group 5 (ICD-10-PCS; 2022-11-22)
PROC: 02HV33Z Insertion of Infusion Device into Superior Vena Cava, Percutaneous Approach (ICD-10-PCS; principal; 2022-11-23)
PROC: 0BH17EZ Insertion of Endotracheal Airway into Trachea, Via Natural or Artificial Opening (ICD-10-PCS; 2022-11-23)
PROC: 5A1955Z Respiratory Ventilation, Greater than 96 Consecutive Hours (ICD-10-PCS; 2022-11-23)
PROC: 5A09357 Assistance with Respiratory Ventilation, Less than 24 Consecutive Hours, Continuous Positive Airway Pressure (ICD-10-PCS; 2022-11-23)
PROC: 5A0935A Assistance with Respiratory Ventilation, Less than 24 Consecutive Hours, High Flow/Velocity Cannula (ICD-10-PCS; 2022-11-23)
PROC: 0B9B8ZZ Drainage of Left Lower Lobe Bronchus, Via Natural or Artificial Opening Endoscopic (ICD-10-PCS; 2022-11-24)
PROC: 0B968ZZ Drainage of Right Lower Lobe Bronchus, Via Natural or Artificial Opening Endoscopic (ICD-10-PCS; 2022-11-24)
DX: A41.59 Other Gram-negative sepsis (principal); I50.33 Acute on chronic diastolic (congestive) heart failure; J69.0 Pneumonitis due to inhalation of food and vomit; J96.01 Acute respiratory failure with hypoxia; R65.21 Severe sepsis with septic shock; U07.1 COVID-19; E46 Unspecified protein-calorie malnutrition; E87.1 Hypo-osmolality and hyponatremia; N39.0 Urinary tract infection, site not specified; N17.9 Acute kidney failure, unspecified; E87.0 Hyperosmolality and hypernatremia; Z99.11 Dependence on respirator [ventilator] status; I69.354 Hemiplegia and hemiparesis following cerebral infarction affecting left non-dominant side; E11.65 Type 2 diabetes mellitus with hyperglycemia; I25.10 Atherosclerotic heart disease of native coronary artery without angina pectoris; E66.9 Obesity, unspecified; K59.00 Constipation, unspecified; B96.89 Other specified bacterial agents as the cause of diseases classified elsewhere; I11.0 Hypertensive heart disease with heart failure; E78.5 Hyperlipidemia, unspecified; E11.40 Type 2 diabetes mellitus with diabetic neuropathy, unspecified; D89.839 Cytokine release syndrome, grade unspecified; R31.0 Gross hematuria; Z68.30 Body mass index [BMI] 30.0-30.9, adult; Z95.1 Presence of aortocoronary bypass graft; Z87.891 Personal history of nicotine dependence; Z85.038 Personal history of other malignant neoplasm of large intestine; Z83.3 Family history of diabetes mellitus; Z79.899 Other long term (current) drug therapy; Z79.82 Long term (current) use of aspirin; Z79.01 Long term (current) use of anticoagulants
CPT/HCPCS: 31645; 36415; 36600; 70450; 70551; 71045; 71250; 74018; 76775; 76856; 80048; 80053; 80061; 80202; 80307; 81001; 82010; 82306; 82607; 82805; 82962; 83036; 83605; 83615; 83735; 83880; 83930; 84100; 84443; 84484; 84550; 85007; 85025; 85027; 85379; 85610; 85652; 85730; 86141; 87040; 87070; 87077; 87205; 87426; 87804; 92610; 93005; 93306; 93886; 93970; 93971; 94002; 94003; 94640; 94660; 95819; 97110; 97116; 97163; 97530; C9113; G0378; J0171; J0696; J1100; J1815; J2185; J2250; J2543; J2704; J7042; J7060

== ENCOUNTER 2022-12-03 18:37 | Inpatient (IN) | payer MEDICARE, OTHER ==
[~2022-12-03] VITALS: Ht 182.9 cm; Wt 90.6 kg
[~2022-12-03 18:37] MED LIST changes: -ADENOSINE 74 MG in GIVE UN-DILUTED 0 ML IV ONE; -ADENOSINE 90 MG/30 ML INJ IV ONE; +ATOR40TA52 PO; +FUR20T PO; +LISI40TA16 PO; +METO1TAB9 PO
[2022-12-03] MEDS ORDERED: IPRATROPIUM BROM 0.5 MG/2.5ML INH SOL NEB ONE (19:00)
[2022-12-03] MEDS ORDERED: ONDANSETRON HCL 4 MG/2 ML VIAL IV ONE (19:00)
[2022-12-03] MEDS ORDERED: ALBUTEROL SULF 2.5 MG/0.5ML(0.5%) NEB SOLN NEB ONE ×2 (19:00→20:45)
[2022-12-03] MEDS ORDERED: ASPirin 81 mg TAB PO ONE (19:00)
[2022-12-03] MEDS ORDERED: FUROSEMIDE 40 MG/4 ML VIAL IV ONE (19:00)
[2022-12-03] MEDS ORDERED: PIPERACILLIN-TAZOB 3.375GM 100 ML IV ONE (19:15)
[2022-12-03] MEDS ORDERED: CLINDAMYCIN 900MG IV 50 ML IV ONE (19:15)
[2022-12-03] MEDS ORDERED: methylPREDNISolone SOD SUCC 40 MG/ML VL IV ONE (19:15)
[2022-12-03] MEDS ORDERED: PANTOPRAZOLE 40 MG/10 ML VIAL INJ IV ONE (19:15)
[2022-12-03] MEDS ORDERED: VANCOMYCIN 1GM/250ML 250 ML IV ONE (19:15)
[2022-12-03 19:25] VITALS: PULSE 65; RESP 44; O2SAT 97
[2022-12-03 19:38] LABS: Hemoglobin 11.2 g/dL (13.5-17.5)
[2022-12-03 19:39] LABS: Hematocrit 34.5 % (41.0-53.0); Mean Corpuscular Hemoglobin 31.4 pg (28.0-32.0); Mean Corpuscular Hgb Conc. 32.3 g/dL (32.0-36.0); Red Blood Cells 3.56 10^6/uL (4.5-5.90); Red Cell Distribution Width 13.5 % (11.8-14.3)
[2022-12-03 19:44] LABS: Basophils % (manual) 0 (0.0-2.0); Blast Cells 0; Eosinophils % (manual) 0 (0-7); Myelocytes % 0; Promyelocytes % 0; Reactive Lymphocytes 0
[2022-12-03 19:49] VITALS: BP 105/60; PULSE 65; O2SAT 96
[2022-12-03 19:51] VITALS: O2SAT 96
[2022-12-03 19:54] LABS: INR 1.14 (0.9-1.15); Partial Thromboplastin Time 28.6 SEC (24.5-34.5); Prothrombin Time 11.9 sec (9.3-11.8)
[2022-12-03 19:57] LABS: Alanine Aminotransferase 39 U/L (7-40); Albumin 3.2 g/dL (3.2-4.8); Alkaline Phosphatase 99 U/L (46-116); Anion Gap 11.9 (5-15); Aspartate Aminotransferase 25 U/L (13-40); Calcium 8.5 mg/dL (8.5-10.1); Carbon Dioxide 17.1 mmol/L (20-30); Chloride 104 mmol/L (98-107); Magnesium 2.2 mg/dL (1.6-2.6); Potassium 5.3 mmol/L (3.5-5.1)
[2022-12-03 19:58] LABS: Bilirubin, Total 1.1 mg/dL (0.2-1.0); Total Protein 5.8 g/dL (5.7-8.2)
[2022-12-03 20:10] LABS: Lactic Acid w/Reflex 2.3 mmol/L (0.4-2.0)
[2022-12-03 20:18] LABS: Glucose 316 mg/dL (74-106); Sodium 133 mmol/L (136-145)
[2022-12-03 20:20] LABS: Blood Urea Nitrogen 80 mg/dL (9-23)
[2022-12-03] MEDS ORDERED: SODIUM BICARBONATE 8.4% INJ 50ML SYRINGE IV ONE (20:45)
[2022-12-03] MEDS ORDERED: InsuLIN REG 1unit/0.01ml Soln (100units/ml) IV ONE (20:45)
[2022-12-03] MEDS ORDERED: ALBUMIN 25% 100 ML IV ONE (20:45)
[2022-12-03] MEDS ORDERED: CALCIUM CHL 100MG/ML 1,000 MG in D5W 5% 100 ML IV ONE (20:45)
[2022-12-03] MEDS ORDERED: SODIUM CHLORIDE 0.9% 3,600 ML IV ONE (20:45)
[2022-12-03] MEDS ORDERED: DEXTROSE (50%) 50ML SYRG IV ONE (20:45)
[2022-12-03 20:50] VITALS: PULSE 61; RESP 44; O2SAT 96
[2022-12-03 20:51] LABS: Band Neutrophils % (manual) 7; Lymphocytes % (manual) 3 (10.0-50.0); Monocytes % (manual) 4 (0-12)
[2022-12-03 20:52] LABS: Anisocytosis Slight; Metamyelocytes % 2; Platelet Estimate Adequate
[2022-12-03] MEDS ORDERED: NITROGLYCERIN 0.4 MG SL TAB SL PRN (21:15)
[2022-12-03] MEDS ORDERED: DEXTROSE (50%) 50ML SYRG IV PRN (21:15)
[2022-12-03] MEDS ORDERED: HYDROcodone-ACET 5/325MG TAB PO PRN (21:15)
[2022-12-03] MEDS ORDERED: DOCUSATE SOD 100 MG CAP PO PRN (21:15)
[2022-12-03] MEDS ORDERED: VANCOMYCIN PER PHARMACY 0 MG IV SCH (21:15)
[2022-12-03] MEDS ORDERED: MORPHINE SULFATE INJ 2 MG/ml SYRG IV PRN (21:15)
[2022-12-03] MEDS ORDERED: ONDANSETRON HCL 4 MG/2 ML VIAL IV PRN (21:15)
[2022-12-03 21:27] LABS: INR 1.19 (0.9-1.15); Partial Thromboplastin Time 29.7 SEC (24.5-34.5); Prothrombin Time 12.4 sec (9.3-11.8)
[2022-12-03] MEDS ORDERED: CALCIUM GLUC 1,000mg/50ml-NS 50 ML IV ONE (21:45)
[2022-12-03] MEDS: ATORVASTATIN 20 MG TAB PO SCH (22:00)
[2022-12-03] MEDS: InsuLIN REG 1unit/0.01ml Soln (100units/ml) SC SCH (22:00)
[2022-12-03] MEDS: ACCU-CHEK COMFORT CURVE STRIP VI SCH (22:06)
[2022-12-03 22:10] VITALS: BP 128/68; PULSE 68; O2SAT 100
[2022-12-03] MEDS: SODIUM CHLOR 0.9% PF (SALINE LOCK) 10ML VIAL/SYR IV SCH (22:23)
[2022-12-03] MEDS: FAMOTIDINE (10MG/ML) 2ML VL IV SCH (22:23)
[2022-12-03 22:51] LABS: Base Excess -11.8 mmol/L (-2.0-2.0)
[2022-12-03 22:53] LABS: Urine Bacteria FEW /hpf (None Seen); Urine Blood 3+ /uL (Negative); Urine Budding Yeast MANY /hpf (None Seen); Urine Clarity HAZY (Clear); Urine Color Yellow (Yellow); Urine Protein, UAD 1+ (Negative); Urine Specific Gravity 1.017 (1.001-1.035); Urine Urobilinogen Normal (Negative); Urine WBC 69 /hpf (0 - 3); Urine pH 6.5 (5.0-8.0)
[2022-12-04] VITALS (36 sets, daily range): BP systolic 78–132; BP diastolic 38–66; PULSE 49–95; RESP 22–34; TEMP 97.7–98.4; O2SAT 92–100
[2022-12-04 01:01] LABS: Lactic Acid w/Reflex 2.6 mmol/L (0.4-2.0)
[2022-12-04] MEDS: NOREPINEPHRINE 8 MG/250ML KIT 250 ML IV SCH ×2 (04:03→15:00)
[2022-12-04] MEDS: SODIUM CHLOR 0.9% PF (SALINE LOCK) 10ML VIAL/SYR IV SCH ×3 (05:51→22:43)
[2022-12-04 05:58] LABS: Hemoglobin 9.2 g/dL (13.5-17.5); Red Cell Distribution Width 13.4 % (11.8-14.3)
[2022-12-04 06:02] LABS: Hematocrit 28.3 % (41.0-53.0); Mean Corpuscular Hemoglobin 31.3 pg (28.0-32.0); Mean Corpuscular Hgb Conc. 32.6 g/dL (32.0-36.0); Mean Corpuscular Volume 96.1 fL (80.0-100.0); Red Blood Cells 2.94 10^6/uL (4.5-5.90)
[2022-12-04 06:07] LABS: White Blood Cell 37.4 10^3/uL (4.4-10.8)
[2022-12-04 06:09] LABS: Band Neutrophils % (manual) 0; Basophils % (manual) 0 (0.0-2.0); Blast Cells 0; Eosinophils % (manual) 0 (0-7); Lymphocytes % (manual) 0 (10.0-50.0); Metamyelocytes % 0; Myelocytes % 0; Promyelocytes % 0; Reactive Lymphocytes 0
[2022-12-04 06:20] LABS: Alanine Aminotransferase 29 U/L (7-40); Albumin 3.1 g/dL (3.2-4.8); Alkaline Phosphatase 92 U/L (46-116); Aspartate Aminotransferase 33 U/L (13-40); Blood Urea Nitrogen 72 mg/dL (9-23); Calcium 7.9 mg/dL (8.5-10.1); Chloride 110 mmol/L (98-107); Potassium 4.7 mmol/L (3.5-5.1); Sodium 139 mmol/L (136-145)
[2022-12-04 06:21] LABS: Bilirubin, Total 1.2 mg/dL (0.2-1.0); Total Protein 5.4 g/dL (5.7-8.2)
[2022-12-04 06:24] LABS: Carbon Dioxide 15.7 mmol/L (20-30)
[2022-12-04] MEDS: methylPREDNISolone SOD SUCC 40 MG/ML VL IV SCH ×3 (06:32→22:45)
[2022-12-04 06:35] LABS: Glucose 203 mg/dL (74-106)
[2022-12-04] MEDS: ACCU-CHEK COMFORT CURVE STRIP VI SCH ×4 (06:35→22:43)
[2022-12-04] MEDS: InsuLIN REG 1unit/0.01ml Soln (100units/ml) SC SCH ×4 (06:36→22:57)
[2022-12-04 07:21] LABS: Anion Gap 13 (5-15)
[2022-12-04] MEDS: ASPirin 81 mg TAB PO SCH (10:00)
[2022-12-04] MEDS ORDERED: NITROGLYCERIN 0.4 MG SL TAB SL ONE (10:00)
[2022-12-04] MEDS: CARVEDILOL 3.125 MG TAB PO SCH ×2 (10:00→22:00)
[2022-12-04] MEDS ORDERED: BUMETANIDE 2.5mg/10ml (0.25 mg/ml) INJ IV ONE (11:00)
[2022-12-04] MEDS ORDERED: ROCURONIUM 10MG/ML 10ML VIAL IV ONE (11:15)
[2022-12-04] MEDS ORDERED: ETOMIDATE (2MG/ML) 20ML VIAL IV ONE (11:15)
[2022-12-04 11:28] LABS: Monocytes % (manual) 3 (0-12)
[2022-12-04 11:29] LABS: Anisocytosis Slight; Platelet Estimate Adequate
[2022-12-04] MEDS: PROPOFOL 100 ML IV SCH ×2 (12:10→23:16)
[2022-12-04] MEDS: FUROSEMIDE 20 MG/2 ML VIAL IV SCH (12:32)
[2022-12-04] MEDS: AZITHROMYCIN 500MG/ 250ML 250 ML IV SCH (12:32)
[2022-12-04] MEDS: FAMOTIDINE (10MG/ML) 2ML VL IV SCH ×2 (12:32→22:43)
[2022-12-04 13:51] LABS: Base Excess -9.5 mmol/L (-2.0-2.0)
[2022-12-04] MEDS: fentaNYL Drip 2500mCg/250mlNS 250 ML IV SCH (14:24)
[2022-12-04] MEDS: SODIUM BICARBONATE 50ML VIAL 150 ML in D5W 5% 1,000 ML IV SCH ×2 (15:05→22:30)
[2022-12-04] MEDS ORDERED: VANCOMYCIN 500 MG in D5W 5% 100 ML IV ONE (16:00)
[2022-12-04] MEDS: ATORVASTATIN 20 MG TAB PO SCH (22:00)
[2022-12-05] VITALS (106 sets, daily range): BP systolic 88–159; BP diastolic 29–83; PULSE 42–64; RESP 11–27; TEMP 97–97.9; O2SAT 94–100
[2022-12-05 03:51] LABS: COVID19 ANTIGEN SOFIA FIA NEGATIVE (NEGATIVE)
[2022-12-05 04:06] LABS: Chloride 108 mmol/L (98-107); Sodium 138 mmol/L (136-145)
[2022-12-05 04:07] LABS: Calcium 7.7 mg/dL (8.7-10.4)
[2022-12-05 04:12] LABS: Blood Urea Nitrogen 72 mg/dL (9-23)
[2022-12-05] MEDS: PROPOFOL 100 ML IV SCH (04:23)
[2022-12-05] MEDS: NOREPINEPHRINE 8 MG/250ML KIT 250 ML IV SCH ×2 (04:23→19:50)
[2022-12-05] MEDS ORDERED: SODIUM BICARBONATE 8.4 % INJ 50ML VIAL IV ONE (04:30)
[2022-12-05 04:34] LABS: Glucose 356 mg/dL (74-106)
[2022-12-05] MEDS: ACCU-CHEK COMFORT CURVE STRIP VI SCH ×4 (05:45→22:23)
[2022-12-05] MEDS: methylPREDNISolone SOD SUCC 40 MG/ML VL IV SCH ×3 (05:45→22:23)
[2022-12-05] MEDS: SODIUM CHLOR 0.9% PF (SALINE LOCK) 10ML VIAL/SYR IV SCH ×3 (05:45→22:13)
[2022-12-05] MEDS: InsuLIN REG 1unit/0.01ml Soln (100units/ml) SC SCH ×4 (05:47→23:08)
[2022-12-05] MEDS: fentaNYL Drip 2500mCg/250mlNS 250 ML IV SCH ×2 (05:57→18:12)
[2022-12-05] MEDS: SODIUM BICARBONATE 50ML VIAL 150 ML in D5W 5% 1,000 ML IV SCH ×2 (06:51→22:13)
[2022-12-05 08:39] LABS: Base Excess -5.7 mmol/L (-2.0-2.0)
[2022-12-05] MEDS ORDERED: VANCOMYCIN 1GM/250ML 250 ML IV ONE (10:00)
[2022-12-05] MEDS: CARVEDILOL 3.125 MG TAB PO SCH ×3 (10:00→22:17)
[2022-12-05] MEDS: ASPirin 81 mg TAB PO SCH (10:25)
[2022-12-05] MEDS: AZITHROMYCIN 500MG/ 250ML 250 ML IV SCH (10:25)
[2022-12-05] MEDS: FUROSEMIDE 20 MG/2 ML VIAL IV SCH (10:26)
[2022-12-05] MEDS: MIDAZOLAM DRIP 50 mg/50mL 50 ML IV SCH ×4 (11:17→23:28)
[2022-12-05] MEDS: ATORVASTATIN 20 MG TAB PO SCH (22:16)
[2022-12-06] VITALS (107 sets, daily range): BP systolic 61–137; BP diastolic 30–61; PULSE 43–86; RESP 4–26; TEMP 96.3–99; O2SAT 84–100
[2022-12-06 04:49] LABS: Hematocrit 26.1 % (41.0-53.0); Hemoglobin 8.6 g/dL (13.5-17.5); Mean Corpuscular Hgb Conc. 32.9 g/dL (32.0-36.0); Mean Corpuscular Volume 94.2 fL (80.0-100.0); Red Blood Cells 2.77 10^6/uL (4.5-5.90); White Blood Cell 28.9 10^3/uL (4.4-10.8)
[2022-12-06 05:16] LABS: Alanine Aminotransferase 20 U/L (7-40); Alkaline Phosphatase 91 U/L (46-116); Calcium 7.6 mg/dL (8.5-10.1); Chloride 105 mmol/L (98-107)
[2022-12-06 05:17] LABS: Albumin 2.8 g/dL (3.2-4.8); Anion Gap 7.6 (5-15); Aspartate Aminotransferase 19 U/L (13-40); Bilirubin, Total 0.6 mg/dL (0.2-1.0); Blood Urea Nitrogen 73 mg/dL (9-23); Carbon Dioxide 26.4 mmol/L (20-30); Glucose 288 mg/dL (74-106); Potassium 4.4 mmol/L (3.5-5.1); Sodium 139 mmol/L (136-145); Total Protein 5.1 g/dL (5.7-8.2)
[2022-12-06 05:25] LABS: Basophils % (manual) 0 (0.0-2.0); Blast Cells 0; Eosinophils % (manual) 0 (0-7); Metamyelocytes % 0; Myelocytes % 0; Promyelocytes % 0; Reactive Lymphocytes 0
[2022-12-06] MEDS: methylPREDNISolone SOD SUCC 40 MG/ML VL IV SCH (06:00)
[2022-12-06] MEDS: MIDAZOLAM DRIP 50 mg/50mL 50 ML IV SCH ×3 (06:27→21:29)
[2022-12-06] MEDS: SODIUM CHLOR 0.9% PF (SALINE LOCK) 10ML VIAL/SYR IV SCH ×3 (06:28→22:17)
[2022-12-06 06:57] LABS: Band Neutrophils % (manual) 1; Lymphocytes % (manual) 2 (10.0-50.0); Monocytes % (manual) 5 (0-12); Platelet Estimate Adequate
[2022-12-06] MEDS: InsuLIN REG 1unit/0.01ml Soln (100units/ml) SC SCH ×4 (07:00→22:35)
[2022-12-06] MEDS: ACCU-CHEK COMFORT CURVE STRIP VI SCH ×4 (07:16→22:19)
[2022-12-06 07:43] LABS: Base Excess -1.8 mmol/L (-2.0-2.0)
[2022-12-06] MEDS: AZITHROMYCIN 500MG/ 250ML 250 ML IV SCH (09:44)
[2022-12-06] MEDS: ASPirin 81 mg TAB PO SCH (09:44)
[2022-12-06] MEDS: fentaNYL Drip 2500mCg/250mlNS 250 ML IV SCH (09:44)
[2022-12-06] MEDS: CHOLECALCIFEROL (VITD3) 1,000UNIT=25mCg TAB PO SCH (09:45)
[2022-12-06] MEDS: PANTOPRAZOLE 40 MG/10 ML VIAL INJ IV SCH (09:46)
[2022-12-06] MEDS: ZINC SULFATE 220mg CAP or TAB PO SCH (09:46)
[2022-12-06] MEDS: FUROSEMIDE 20 MG/2 ML VIAL IV SCH (09:47)
[2022-12-06] MEDS: CARVEDILOL 3.125 MG TAB PO SCH (09:54)
[2022-12-06] MEDS ORDERED: ASCORBIC ACID 500 MG TAB PO SCH (10:00)
[2022-12-06] MEDS: SODIUM BICARBONATE 50ML VIAL 150 ML in D5W 5% 1,000 ML IV SCH (10:04)
[2022-12-06] MEDS: PROPOFOL 100 ML IV SCH (11:15)
[2022-12-06] MEDS ORDERED: PIPERACILLIN-TAZOB 3.375GM 100 ML IV ONE (11:30)
[2022-12-06] MEDS ORDERED: MICAFUNGIN SODIUM 100 MG in SODIUM CHL 0.9% 100 ML IV ONE (11:30)
[2022-12-06] MEDS ORDERED: PIPERACILLIN-TAZOB 3.375GM 100 ML IV SCH (14:00)
[2022-12-06] MEDS: LACTULOSE 20Gm/30ML SOLN PO SCH ×3 (14:27→22:19)
[2022-12-06] MEDS: NOREPINEPHRINE 8 MG/250ML KIT 250 ML IV SCH (15:02)
[2022-12-06] MEDS: SODIUM BICARBONATE 50ML VIAL 50 ML in SOD CHL 0.45% 1,000 ML IV SCH (15:33)
[2022-12-06] MEDS: PIPERACILLIN-TAZOB 3.375GM 100 ML IV SCH (21:28)
[2022-12-07] VITALS (109 sets, daily range): BP systolic 64–149; BP diastolic 28–60; PULSE 56–84; RESP 12–27; TEMP 40.5; O2SAT 95–100
[2022-12-07] MEDS: SODIUM BICARBONATE 50ML VIAL 50 ML in SOD CHL 0.45% 1,000 ML IV SCH ×2 (01:44→10:09)
[2022-12-07] MEDS: NOREPINEPHRINE 8 MG/250ML KIT 250 ML IV SCH ×3 (01:45→22:12)
[2022-12-07] MEDS: fentaNYL Drip 2500mCg/250mlNS 250 ML IV SCH ×2 (01:47→16:52)
[2022-12-07] MEDS: LACTULOSE 20Gm/30ML SOLN PO SCH ×6 (02:00→22:14)
[2022-12-07 04:17] LABS: Basophils # (auto) 0 10 ^3/uL (0-0.2); Basophils % (auto) 0.1 % (0.0-2.0); Eosinophils # (auto) 0 10 ^3/uL (0-0.8); Eosinophils % (auto) 0.1 % (0.0-7.0); Hemoglobin 7.9 g/dL (13.5-17.5)
[2022-12-07 04:20] LABS: Hematocrit 23.3 % (41.0-53.0); Lymphocytes # (auto) 0.5 10 ^3/uL (0.4-5.4); Lymphocytes % (auto) 2.2 % (10.0-50.0); Mean Corpuscular Hemoglobin 32.2 pg (28.0-32.0); Mean Corpuscular Volume 94.5 fL (80.0-100.0); Monocytes # (auto) 0.8 10 ^3/uL (0-1.3); Monocytes % (auto) 3.4 % (0.0-12.0); Neutrophils % (auto) 94.2 % (37.0-80.0); Red Blood Cells 2.46 10^6/uL (4.5-5.90); Red Cell Distribution Width 13.2 % (11.8-14.3); White Blood Cell 22.3 10^3/uL (4.4-10.8)
[2022-12-07 04:27] LABS: Alanine Aminotransferase 17 U/L (7-40); Alkaline Phosphatase 88 U/L (46-116); Anion Gap 3.6 (5-15); Blood Urea Nitrogen 64 mg/dL (9-23); Calcium 7.6 mg/dL (8.7-10.4); Carbon Dioxide 31.4 mmol/L (20-30); Chloride 105 mmol/L (98-107); Glucose 223 mg/dL (74-106); Potassium 3.9 mmol/L (3.5-5.1); Sodium 140 mmol/L (136-145)
[2022-12-07 04:28] LABS: Albumin 2.5 g/dL (3.2-4.8); Aspartate Aminotransferase 15 U/L (13-40); Bilirubin, Total 0.6 mg/dL (0.2-1.0); Total Protein 4.5 g/dL (5.7-8.2)
[2022-12-07] MEDS: PIPERACILLIN-TAZOB 3.375GM 100 ML IV SCH ×3 (05:20→21:00)
[2022-12-07] MEDS: SODIUM CHLOR 0.9% PF (SALINE LOCK) 10ML VIAL/SYR IV SCH ×3 (05:21→22:10)
[2022-12-07] MEDS: ACCU-CHEK COMFORT CURVE STRIP VI SCH ×4 (06:12→22:13)
[2022-12-07] MEDS: InsuLIN REG 1unit/0.01ml Soln (100units/ml) SC SCH ×4 (06:39→22:36)
[2022-12-07 07:03] LABS: Base Excess 4.6 mmol/L (-2.0-2.0)
[2022-12-07] MEDS: AZITHROMYCIN 500MG/ 250ML 250 ML IV SCH (10:07)
[2022-12-07] MEDS: CHOLECALCIFEROL (VITD3) 1,000UNIT=25mCg TAB PO SCH (10:07)
[2022-12-07] MEDS: ZINC SULFATE 220mg CAP or TAB PO SCH (10:07)
[2022-12-07] MEDS: PANTOPRAZOLE 40 MG/10 ML VIAL INJ IV SCH (10:08)
[2022-12-07] MEDS: FUROSEMIDE 20 MG/2 ML VIAL IV SCH (10:08)
[2022-12-07] MEDS: PROPOFOL 100 ML IV SCH (11:15)
[2022-12-07] MEDS ORDERED: SOD CHL 0.45% 1,000 ML IV SCH (11:15)
[2022-12-07] MEDS: MICAFUNGIN SODIUM 100 MG in SODIUM CHL 0.9% 100 ML IV SCH (11:28)
[2022-12-07] MEDS: MIDAZOLAM DRIP 50 mg/50mL 50 ML IV SCH ×2 (12:30→22:11)
[2022-12-07] MEDS: SOD CHL 0.45% 1,000 ML IV SCH (13:45)
[2022-12-07] MEDS ORDERED: Glucerna 1.2 Cal 1Liter BOTTLE GT SCH (13:45)
[2022-12-07] MEDS ORDERED: SENNA 8.6 MG TAB PO ONE (14:00)
[2022-12-08] VITALS (106 sets, daily range): BP systolic 93–139; BP diastolic 32–56; PULSE 63–91; RESP 10–28; TEMP 72.5–100; O2SAT 64–100
[2022-12-08] MEDS: LACTULOSE 20Gm/30ML SOLN PO SCH ×6 (02:09→21:37)
[2022-12-08] MEDS: SOD CHL 0.45% 1,000 ML IV SCH ×2 (04:06→15:06)
[2022-12-08 04:36] LABS: Basophils # (auto) 0 10 ^3/uL (0-0.2); Eosinophils # (auto) 0.2 10 ^3/uL (0-0.8)
[2022-12-08 04:39] LABS: Basophils % (auto) 0.2 % (0.0-2.0); Hematocrit 24.2 % (41.0-53.0); Hemoglobin 8.1 g/dL (13.5-17.5); Lymphocytes # (auto) 0.8 10 ^3/uL (0.4-5.4); Lymphocytes % (auto) 4.1 % (10.0-50.0); Mean Corpuscular Hgb Conc. 33.4 g/dL (32.0-36.0); Mean Corpuscular Volume 95.8 fL (80.0-100.0); Monocytes # (auto) 0.5 10 ^3/uL (0-1.3); Monocytes % (auto) 2.6 % (0.0-12.0); Neutrophils # (auto) 18.8 10 ^3/uL (1.6-8.6); Neutrophils % (auto) 92.1 % (37.0-80.0); Red Blood Cells 2.52 10^6/uL (4.5-5.90); White Blood Cell 20.5 10^3/uL (4.4-10.8)
[2022-12-08 04:47] LABS: Alanine Aminotransferase 17 U/L (7-40); Albumin 2.5 g/dL (3.2-4.8); Alkaline Phosphatase 81 U/L (46-116); Anion Gap 3.6 (5-15); Aspartate Aminotransferase 20 U/L (13-40); BUN/Creatinine Ratio 36.3 (10.0-20.0); Bilirubin, Total 0.6 mg/dL (0.2-1.0); Calcium 7.5 mg/dL (8.7-10.4); Carbon Dioxide 31.4 mmol/L (20-30); Chloride 105 mmol/L (98-107); Glucose 175 mg/dL (74-106); Phosphorus 3.2 mg/dL (2.4-5.1); Potassium 3.6 mmol/L (3.5-5.1); Sodium 140 mmol/L (136-145); Total Protein 4.7 g/dL (5.7-8.2)
[2022-12-08 04:50] LABS: Blood Urea Nitrogen 45 mg/dL (9-23)
[2022-12-08] MEDS: PIPERACILLIN-TAZOB 3.375GM 100 ML IV SCH ×3 (04:51→20:31)
[2022-12-08] MEDS: MIDAZOLAM DRIP 50 mg/50mL 50 ML IV SCH ×2 (04:52→13:22)
[2022-12-08] MEDS: SODIUM CHLOR 0.9% PF (SALINE LOCK) 10ML VIAL/SYR IV SCH ×3 (06:42→21:36)
[2022-12-08] MEDS: ACCU-CHEK COMFORT CURVE STRIP VI SCH ×4 (06:43→21:37)
[2022-12-08] MEDS: fentaNYL Drip 2500mCg/250mlNS 250 ML IV SCH (06:45)
[2022-12-08 07:03] LABS: Base Excess 3.8 mmol/L (-2.0-2.0)
[2022-12-08] MEDS: InsuLIN REG 1unit/0.01ml Soln (100units/ml) SC SCH ×4 (07:03→21:41)
[2022-12-08] MEDS: NOREPINEPHRINE 8 MG/250ML KIT 250 ML IV SCH ×2 (07:51→20:23)
[2022-12-08] MEDS: AZITHROMYCIN 500MG/ 250ML 250 ML IV SCH (10:36)
[2022-12-08] MEDS: CHOLECALCIFEROL (VITD3) 1,000UNIT=25mCg TAB PO SCH (10:37)
[2022-12-08] MEDS: ZINC SULFATE 220mg CAP or TAB PO SCH (10:37)
[2022-12-08] MEDS: MICAFUNGIN SODIUM 100 MG in SODIUM CHL 0.9% 100 ML IV SCH (10:37)
[2022-12-08] MEDS: PANTOPRAZOLE 40 MG/10 ML VIAL INJ IV SCH (10:37)
[2022-12-08] MEDS: IPRATROPIUM BROM 0.5 MG/2.5ML INH SOL NEB PRN (11:12)
[2022-12-08] MEDS: ALBUTEROL SULF 2.5 MG/0.5ML(0.5%) NEB SOLN NEB PRN (11:12)
[2022-12-08] MEDS: PROPOFOL 100 ML IV SCH (11:15)
[2022-12-09] VITALS (108 sets, daily range): BP systolic 86–133; BP diastolic 34–67; PULSE 71–123; RESP 11–25; TEMP 96.1–99.9; O2SAT 96–100
[2022-12-09] MEDS: LACTULOSE 20Gm/30ML SOLN PO SCH ×5 (02:34→21:37)
[2022-12-09] MEDS: PIPERACILLIN-TAZOB 3.375GM 100 ML IV SCH ×3 (04:32→20:48)
[2022-12-09 04:42] LABS: Basophils # (auto) 0 10 ^3/uL (0-0.2); Eosinophils # (auto) 0.6 10 ^3/uL (0-0.8); Mean Corpuscular Hemoglobin 30.5 pg (28.0-32.0)
[2022-12-09 04:46] LABS: Basophils % (auto) 0.1 % (0.0-2.0); Eosinophils % (auto) 2.4 % (0.0-7.0); Hematocrit 25.8 % (41.0-53.0); Hemoglobin 8.1 g/dL (13.5-17.5); Lymphocytes # (auto) 0.9 10 ^3/uL (0.4-5.4); Lymphocytes % (auto) 3.9 % (10.0-50.0); Mean Corpuscular Hgb Conc. 31.6 g/dL (32.0-36.0); Mean Corpuscular Volume 96.5 fL (80.0-100.0); Monocytes # (auto) 0.7 10 ^3/uL (0-1.3); Monocytes % (auto) 3.1 % (0.0-12.0); Neutrophils # (auto) 21.1 10 ^3/uL (1.6-8.6); Neutrophils % (auto) 90.5 % (37.0-80.0); Red Blood Cells 2.67 10^6/uL (4.5-5.90); Red Cell Distribution Width 13.2 % (11.8-14.3); White Blood Cell 23.3 10^3/uL (4.4-10.8)
[2022-12-09 05:35] LABS: Alanine Aminotransferase 17 U/L (7-40); Albumin 2.6 g/dL (3.2-4.8); Alkaline Phosphatase 90 U/L (46-116); Anion Gap 5.5 (5-15); Aspartate Aminotransferase 21 U/L (13-40); BUN/Creatinine Ratio 28.4 (10.0-20.0); Calcium 7.8 mg/dL (8.7-10.4); Carbon Dioxide 28.5 mmol/L (20-30); Chloride 105 mmol/L (98-107); Glucose 178 mg/dL (74-106); Sodium 139 mmol/L (136-145)
[2022-12-09 05:36] LABS: Bilirubin, Total 0.7 mg/dL (0.2-1.0)
[2022-12-09] MEDS: SODIUM CHLOR 0.9% PF (SALINE LOCK) 10ML VIAL/SYR IV SCH ×3 (05:43→21:37)
[2022-12-09 06:08] LABS: Blood Urea Nitrogen 31 mg/dL (9-23)
[2022-12-09] MEDS: ACCU-CHEK COMFORT CURVE STRIP VI SCH ×4 (06:42→21:37)
[2022-12-09] MEDS: InsuLIN REG 1unit/0.01ml Soln (100units/ml) SC SCH ×4 (06:42→21:40)
[2022-12-09 07:05] LABS: Base Excess 0.4 mmol/L (-2.0-2.0)
[2022-12-09] MEDS: NOREPINEPHRINE 8 MG/250ML KIT 250 ML IV SCH ×2 (09:23→21:38)
[2022-12-09] MEDS: CHOLECALCIFEROL (VITD3) 1,000UNIT=25mCg TAB PO SCH (10:00)
[2022-12-09] MEDS: PROPOFOL 100 ML IV SCH (11:15)
[2022-12-09] MEDS: MICAFUNGIN SODIUM 100 MG in SODIUM CHL 0.9% 100 ML IV SCH (11:19)
[2022-12-09] MEDS: PANTOPRAZOLE 40 MG/10 ML VIAL INJ IV SCH (11:19)
[2022-12-09] MEDS: ZINC SULFATE 220mg CAP or TAB PO SCH (11:20)
[2022-12-09] MEDS: SOD CHL 0.45% 1,000 ML IV SCH (11:21)
[2022-12-09] MEDS: fentaNYL Drip 2500mCg/250mlNS 250 ML IV SCH ×2 (13:30→20:21)
[2022-12-09] MEDS ORDERED: FUROSEMIDE 20 MG/2 ML VIAL IV ONE (13:45)
[2022-12-10] VITALS (110 sets, daily range): BP systolic 90–148; BP diastolic 23–65; PULSE 65–118; RESP 15–35; TEMP 88.2–100.9; O2SAT 98–100
[2022-12-10] MEDS: ACETAMINOPHEN 325 MG TAB PO PRN (03:32)
[2022-12-10 04:50] LABS: Basophils # (auto) 0 10 ^3/uL (0-0.2); Eosinophils # (auto) 0.5 10 ^3/uL (0-0.8); Hematocrit 24.9 % (41.0-53.0); Mean Corpuscular Hemoglobin 31.2 pg (28.0-32.0); Nucleated Red Blood Cells % 0.1 %; Red Blood Cells 2.57 10^6/uL (4.5-5.90)
[2022-12-10 04:52] LABS: Basophils % (auto) 0.3 % (0.0-2.0); Eosinophils % (auto) 2.5 % (0.0-7.0); Lymphocytes # (auto) 0.9 10 ^3/uL (0.4-5.4); Lymphocytes % (auto) 4.7 % (10.0-50.0); Mean Corpuscular Hgb Conc. 32.3 g/dL (32.0-36.0); Mean Corpuscular Volume 96.6 fL (80.0-100.0); Monocytes # (auto) 0.6 10 ^3/uL (0-1.3); Neutrophils # (auto) 16.8 10 ^3/uL (1.6-8.6); Neutrophils % (auto) 89.5 % (37.0-80.0); Red Cell Distribution Width 13.1 % (11.8-14.3); White Blood Cell 18.8 10^3/uL (4.4-10.8)
[2022-12-10] MEDS: PIPERACILLIN-TAZOB 3.375GM 100 ML IV SCH ×3 (05:11→21:12)
[2022-12-10] MEDS: LACTULOSE 20Gm/30ML SOLN PO SCH ×3 (05:52→21:16)
[2022-12-10] MEDS: SODIUM CHLOR 0.9% PF (SALINE LOCK) 10ML VIAL/SYR IV SCH ×3 (05:52→21:13)
[2022-12-10] MEDS: NOREPINEPHRINE 8 MG/250ML KIT 250 ML IV SCH (06:05)
[2022-12-10] MEDS: ACCU-CHEK COMFORT CURVE STRIP VI SCH ×4 (06:37→21:16)
[2022-12-10] MEDS: InsuLIN REG 1unit/0.01ml Soln (100units/ml) SC SCH ×4 (06:38→21:26)
[2022-12-10 06:50] LABS: Alanine Aminotransferase 16 U/L (7-40); Albumin 2.5 g/dL (3.2-4.8); Alkaline Phosphatase 96 U/L (46-116); Anion Gap 9.9 (5-15); Aspartate Aminotransferase 19 U/L (13-40); BUN/Creatinine Ratio 22.4 (10.0-20.0); Bilirubin, Total 0.7 mg/dL (0.2-1.0); Blood Urea Nitrogen 26 mg/dL (9-23); Calcium 7.8 mg/dL (8.7-10.4); Carbon Dioxide 23.1 mmol/L (20-30); Chloride 106 mmol/L (98-107); Glucose 189 mg/dL (74-106); Potassium 3.8 mmol/L (3.5-5.1); Sodium 139 mmol/L (136-145)
[2022-12-10 06:51] LABS: Total Protein 5.1 g/dL (5.7-8.2)
[2022-12-10 08:48] LABS: Base Excess 0.3 mmol/L (-2.0-2.0)
[2022-12-10] MEDS: PANTOPRAZOLE 40 MG/10 ML VIAL INJ IV SCH (11:43)
[2022-12-10] MEDS: FUROSEMIDE 20 MG/2 ML VIAL IV SCH (11:45)
[2022-12-10] MEDS: MICAFUNGIN SODIUM 100 MG in SODIUM CHL 0.9% 100 ML IV SCH (11:45)
[2022-12-10] MEDS: ZINC SULFATE 220mg CAP or TAB PO SCH (11:46)
[2022-12-10] MEDS: CHOLECALCIFEROL (VITD3) 1,000UNIT=25mCg TAB PO SCH (11:46)
[2022-12-10] MEDS: PROPOFOL 100 ML IV SCH (11:47)
[2022-12-10] MEDS: MIDAZOLAM DRIP 50 mg/50mL 50 ML IV SCH (11:47)
[2022-12-11] VITALS (115 sets, daily range): BP systolic 77–166; BP diastolic 35–137; PULSE 76–121; RESP 15–35; TEMP 97.7–99.1; O2SAT 99–100
[2022-12-11 04:17] LABS: Basophils # (auto) 0 10 ^3/uL (0-0.2); Basophils % (auto) 0.1 % (0.0-2.0); Eosinophils # (auto) 0.1 10 ^3/uL (0-0.8); Hematocrit 23.7 % (41.0-53.0); Hemoglobin 7.4 g/dL (13.5-17.5); Lymphocytes # (auto) 0.7 10 ^3/uL (0.4-5.4); Monocytes # (auto) 0.4 10 ^3/uL (0-1.3); Monocytes % (auto) 4.1 % (0.0-12.0); Red Blood Cells 2.45 10^6/uL (4.5-5.90); White Blood Cell 10.6 10^3/uL (4.4-10.8)
[2022-12-11 04:19] LABS: Lymphocytes % (auto) 6.4 % (10.0-50.0); Mean Corpuscular Hemoglobin 30.2 pg (28.0-32.0); Mean Corpuscular Hgb Conc. 31.3 g/dL (32.0-36.0); Mean Corpuscular Volume 96.6 fL (80.0-100.0); Neutrophils # (auto) 9.3 10 ^3/uL (1.6-8.6); Neutrophils % (auto) 88.4 % (37.0-80.0); Red Cell Distribution Width 13.9 % (11.8-14.3)
[2022-12-11 05:05] LABS: Alanine Aminotransferase 16 U/L (7-40); Albumin 2.5 g/dL (3.2-4.8); Alkaline Phosphatase 98 U/L (46-116); Anion Gap 10.9 (5-15); Aspartate Aminotransferase 19 U/L (13-40); BUN/Creatinine Ratio 22.7 (10.0-20.0); Bilirubin, Total 0.6 mg/dL (0.2-1.0); Blood Urea Nitrogen 25 mg/dL (9-23); Calcium 7.9 mg/dL (8.7-10.4); Carbon Dioxide 25.1 mmol/L (20-30); Chloride 105 mmol/L (98-107); Glucose 162 mg/dL (74-106); Potassium 3.5 mmol/L (3.5-5.1); Sodium 141 mmol/L (136-145)
[2022-12-11] MEDS: LACTULOSE 20Gm/30ML SOLN PO SCH ×3 (05:56→22:00)
[2022-12-11] MEDS: ACCU-CHEK COMFORT CURVE STRIP VI SCH ×4 (05:56→22:16)
[2022-12-11] MEDS: SODIUM CHLOR 0.9% PF (SALINE LOCK) 10ML VIAL/SYR IV SCH ×3 (05:56→22:16)
[2022-12-11] MEDS: PIPERACILLIN-TAZOB 3.375GM 100 ML IV SCH ×3 (06:01→22:17)
[2022-12-11] MEDS: InsuLIN REG 1unit/0.01ml Soln (100units/ml) SC SCH ×4 (06:01→22:25)
[2022-12-11] MEDS: fentaNYL Drip 2500mCg/250mlNS 250 ML IV SCH (07:32)
[2022-12-11] MEDS: FUROSEMIDE 20 MG/2 ML VIAL IV SCH (09:59)
[2022-12-11] MEDS: PANTOPRAZOLE 40 MG/10 ML VIAL INJ IV SCH (09:59)
[2022-12-11] MEDS: CHOLECALCIFEROL (VITD3) 1,000UNIT=25mCg TAB PO SCH (10:00)
[2022-12-11] MEDS: ZINC SULFATE 220mg CAP or TAB PO SCH (10:00)
[2022-12-11] MEDS: MICAFUNGIN SODIUM 100 MG in SODIUM CHL 0.9% 100 ML IV SCH (10:01)
[2022-12-11] MEDS: NOREPINEPHRINE 8 MG/250ML KIT 250 ML IV SCH (10:05)
[2022-12-11] MEDS: MIDAZOLAM DRIP 50 mg/50mL 50 ML IV SCH (10:30)
[2022-12-11 12:05] LABS: Hematocrit 23.7 % (41.0-53.0); Hemoglobin 7.7 g/dL (13.5-17.5)
[2022-12-11 19:03] LABS: Hemoglobin 8.4 g/dL (13.5-17.5)
[2022-12-11 19:05] LABS: Hematocrit 26.2 % (41.0-53.0)
[2022-12-11 22:42] LABS: Hematocrit 22.3 % (41.0-53.0); Hemoglobin 7.4 g/dL (13.5-17.5)
[2022-12-12] VITALS (108 sets, daily range): BP systolic 96–178; BP diastolic 38–93; PULSE 70–112; RESP 18–28; TEMP 97.3–99.3; O2SAT 98–100
[2022-12-12] MEDS: PIPERACILLIN-TAZOB 3.375GM 100 ML IV SCH ×3 (04:56→21:09)
[2022-12-12] MEDS: LACTULOSE 20Gm/30ML SOLN PO SCH ×3 (04:56→21:11)
[2022-12-12] MEDS: SODIUM CHLOR 0.9% PF (SALINE LOCK) 10ML VIAL/SYR IV SCH ×3 (04:56→21:11)
[2022-12-12] MEDS: ACCU-CHEK COMFORT CURVE STRIP VI SCH ×4 (04:56→21:11)
[2022-12-12] MEDS: InsuLIN REG 1unit/0.01ml Soln (100units/ml) SC SCH ×4 (05:29→21:23)
[2022-12-12 06:39] LABS: Basophils # (auto) 0 10 ^3/uL (0-0.2); Basophils % (auto) 0.3 % (0.0-2.0); Eosinophils # (auto) 0.1 10 ^3/uL (0-0.8); Lymphocytes # (auto) 0.6 10 ^3/uL (0.4-5.4); Monocytes # (auto) 0.4 10 ^3/uL (0-1.3)
[2022-12-12 06:42] LABS: Eosinophils % (auto) 1.2 % (0.0-7.0); Hematocrit 23.6 % (41.0-53.0); Hemoglobin 7.5 g/dL (13.5-17.5); Lymphocytes % (auto) 6.1 % (10.0-50.0); Mean Corpuscular Hemoglobin 31.4 pg (28.0-32.0); Monocytes % (auto) 4.6 % (0.0-12.0); Neutrophils # (auto) 8.4 10 ^3/uL (1.6-8.6); Neutrophils % (auto) 87.8 % (37.0-80.0); White Blood Cell 9.6 10^3/uL (4.4-10.8)
[2022-12-12] MEDS: ALBUTEROL SULF 2.5 MG/0.5ML(0.5%) NEB SOLN NEB PRN (07:07)
[2022-12-12] MEDS: IPRATROPIUM BROM 0.5 MG/2.5ML INH SOL NEB PRN (07:07)
[2022-12-12 07:13] LABS: Alanine Aminotransferase 16 U/L (7-40); Albumin 2.3 g/dL (3.2-4.8); Alkaline Phosphatase 69 U/L (46-116); Anion Gap 8.7 (5-15); Aspartate Aminotransferase 20 U/L (13-40); BUN/Creatinine Ratio 24.7 (10.0-20.0); Blood Urea Nitrogen 22 mg/dL (9-23); Calcium 7.6 mg/dL (8.5-10.1); Carbon Dioxide 24.3 mmol/L (20-30); Chloride 108 mmol/L (98-107); Glucose 158 mg/dL (74-106); Potassium 3.5 mmol/L (3.5-5.1); Sodium 141 mmol/L (136-145)
[2022-12-12 07:14] LABS: Bilirubin, Total 0.6 mg/dL (0.2-1.0); Total Protein 4.7 g/dL (5.7-8.2)
[2022-12-12 09:14] LABS: Base Excess 0.1 mmol/L (-2.0-2.0)
[2022-12-12] MEDS: PANTOPRAZOLE 40 MG/10 ML VIAL INJ IV SCH (09:59)
[2022-12-12] MEDS: CHOLECALCIFEROL (VITD3) 1,000UNIT=25mCg TAB PO SCH (09:59)
[2022-12-12] MEDS: FUROSEMIDE 20 MG/2 ML VIAL IV SCH (09:59)
[2022-12-12] MEDS: ZINC SULFATE 220mg CAP or TAB PO SCH (09:59)
[2022-12-12] MEDS: MIDAZOLAM DRIP 50 mg/50mL 50 ML IV SCH (10:30)
[2022-12-12] MEDS: MICAFUNGIN SODIUM 100 MG in SODIUM CHL 0.9% 100 ML IV SCH (12:05)
[2022-12-12] MEDS: fentaNYL Drip 2500mCg/250mlNS 250 ML IV SCH (13:30)
[2022-12-12] MEDS ORDERED: FUROSEMIDE 20 MG/2 ML VIAL IV ONE (14:45)
[2022-12-12] MEDS ORDERED: METOPROLOL TARTRATE 25 MG TAB PO ONE (14:45)
[2022-12-12] MEDS ORDERED: POTASSIUM EFFERVESENT TAB 25 MEQ GT ONE (14:45)
[2022-12-12] MEDS: NOREPINEPHRINE 8 MG/250ML KIT 250 ML IV SCH (20:45)
[2022-12-12] MEDS: METOPROLOL TARTRATE 25 MG TAB PO SCH (21:11)
[2022-12-13] VITALS (97 sets, daily range): BP systolic 125–172; BP diastolic 24–95; PULSE 64–114; RESP 16–29; TEMP 97.3–99.3; O2SAT 98–100
[2022-12-13 04:36] LABS: Anion Gap 11.1 (5-15); Carbon Dioxide 25.9 mmol/L (20-30); Chloride 106 mmol/L (98-107); Potassium 3.4 mmol/L (3.5-5.1); Sodium 143 mmol/L (136-145)
[2022-12-13 04:37] LABS: Basophils # (auto) 0 10 ^3/uL (0-0.2); Calcium 7.9 mg/dL (8.7-10.4); Eosinophils # (auto) 0.1 10 ^3/uL (0-0.8); Hematocrit 20.7 % (41.0-53.0); Lymphocytes # (auto) 0.6 10 ^3/uL (0.4-5.4); Neutrophils # (auto) 6.9 10 ^3/uL (1.6-8.6); Red Cell Distribution Width 13.4 % (11.8-14.3)
[2022-12-13 04:39] LABS: Basophils % (auto) 0.4 % (0.0-2.0); Eosinophils % (auto) 0.6 % (0.0-7.0); Lymphocytes % (auto) 7.7 % (10.0-50.0); Mean Corpuscular Hemoglobin 32.9 pg (28.0-32.0); Mean Corpuscular Volume 96.8 fL (80.0-100.0); Monocytes # (auto) 0.5 10 ^3/uL (0-1.3); Monocytes % (auto) 5.9 % (0.0-12.0); Neutrophils % (auto) 85.4 % (37.0-80.0); Red Blood Cells 2.13 10^6/uL (4.5-5.90); White Blood Cell 8.1 10^3/uL (4.4-10.8)
[2022-12-13 04:42] LABS: BUN/Creatinine Ratio 20.6 (10.0-20.0); Blood Urea Nitrogen 20 mg/dL (9-23); Glucose 151 mg/dL (74-106)
[2022-12-13] MEDS: LACTULOSE 20Gm/30ML SOLN PO SCH ×3 (05:16→20:54)
[2022-12-13] MEDS: SODIUM CHLOR 0.9% PF (SALINE LOCK) 10ML VIAL/SYR IV SCH ×3 (05:28→20:54)
[2022-12-13] MEDS: PIPERACILLIN-TAZOB 3.375GM 100 ML IV SCH ×3 (05:28→20:54)
[2022-12-13] MEDS: ACCU-CHEK COMFORT CURVE STRIP VI SCH ×4 (05:29→21:20)
[2022-12-13] MEDS: InsuLIN REG 1unit/0.01ml Soln (100units/ml) SC SCH ×4 (05:32→21:27)
[2022-12-13 07:46] LABS: Base Excess -0.7 mmol/L (-2.0-2.0)
[2022-12-13] MEDS: MIDAZOLAM DRIP 50 mg/50mL 50 ML IV SCH (10:30)
[2022-12-13] MEDS: POTASSIUM EFFERVESENT TAB 25 MEQ PO SCH (11:28)
[2022-12-13] MEDS: PANTOPRAZOLE 40 MG/10 ML VIAL INJ IV SCH (11:28)
[2022-12-13] MEDS: FUROSEMIDE 20 MG/2 ML VIAL IV SCH (11:29)
[2022-12-13] MEDS: METOPROLOL TARTRATE 25 MG TAB PO SCH ×2 (11:29→21:21)
[2022-12-13] MEDS: CHOLECALCIFEROL (VITD3) 1,000UNIT=25mCg TAB PO SCH (11:29)
[2022-12-13] MEDS: ZINC SULFATE 220mg CAP or TAB PO SCH (11:29)
[2022-12-13] MEDS: MICAFUNGIN SODIUM 100 MG in SODIUM CHL 0.9% 100 ML IV SCH (11:31)
[2022-12-13 12:10] LABS: Hematocrit 17.1 % (41.0-53.0)
[2022-12-13 12:19] LABS: Hemoglobin 5.5 g/dL (13.5-17.5)
[2022-12-13] MEDS ORDERED: POTASSIUM EFFERVESENT TAB 25 MEQ GT ONE (13:15)
[2022-12-13] MEDS: fentaNYL Drip 2500mCg/250mlNS 250 ML IV SCH (13:30)
[2022-12-13] MEDS: NOREPINEPHRINE 8 MG/250ML KIT 250 ML IV SCH (20:45)
[2022-12-13 21:39] LABS: Hematocrit 25.5 % (41.0-53.0); Hemoglobin 8.6 g/dL (13.5-17.5)
[2022-12-14] VITALS (78 sets, daily range): BP systolic 110–178; BP diastolic 38–99; PULSE 60–139; RESP 21–37; TEMP 98.4–99.7; O2SAT 99–100
[2022-12-14 04:22] LABS: Chloride 105 mmol/L (98-107); Potassium 3.4 mmol/L (3.5-5.1); Sodium 144 mmol/L (136-145)
[2022-12-14 04:23] LABS: Anion Gap 11.5 (5-15); Carbon Dioxide 27.5 mmol/L (20-30)
[2022-12-14 04:28] LABS: BUN/Creatinine Ratio 20.2 (10.0-20.0); Blood Urea Nitrogen 19 mg/dL (9-23); Glucose 121 mg/dL (74-106)
[2022-12-14 04:36] LABS: Basophils # (auto) 0 10 ^3/uL (0-0.2); Basophils % (auto) 0.3 % (0.0-2.0); Eosinophils # (auto) 0 10 ^3/uL (0-0.8); Eosinophils % (auto) 0.6 % (0.0-7.0); Hematocrit 25.6 % (41.0-53.0); Hemoglobin 8.7 g/dL (13.5-17.5); Lymphocytes # (auto) 0.7 10 ^3/uL (0.4-5.4); Lymphocytes % (auto) 9.1 % (10.0-50.0); Mean Corpuscular Hemoglobin 31.1 pg (28.0-32.0); Mean Corpuscular Hgb Conc. 34.1 g/dL (32.0-36.0); Mean Corpuscular Volume 91.1 fL (80.0-100.0); Monocytes # (auto) 0.5 10 ^3/uL (0-1.3); Monocytes % (auto) 6.2 % (0.0-12.0); Neutrophils # (auto) 6.3 10 ^3/uL (1.6-8.6); Neutrophils % (auto) 83.8 % (37.0-80.0); Red Blood Cells 2.81 10^6/uL (4.5-5.90); Red Cell Distribution Width 15.7 % (11.8-14.3); White Blood Cell 7.6 10^3/uL (4.4-10.8)
[2022-12-14] MEDS: PIPERACILLIN-TAZOB 3.375GM 100 ML IV SCH ×3 (04:52→20:49)
[2022-12-14] MEDS: LACTULOSE 20Gm/30ML SOLN PO SCH ×3 (06:00→22:00)
[2022-12-14] MEDS: SODIUM CHLOR 0.9% PF (SALINE LOCK) 10ML VIAL/SYR IV SCH ×3 (06:15→22:10)
[2022-12-14] MEDS: InsuLIN REG 1unit/0.01ml Soln (100units/ml) SC SCH ×4 (06:16→22:16)
[2022-12-14] MEDS: ACCU-CHEK COMFORT CURVE STRIP VI SCH ×4 (06:16→22:10)
[2022-12-14] MEDS: fentaNYL Drip 2500mCg/250mlNS 250 ML IV SCH (08:53)
[2022-12-14 09:17] LABS: Base Excess -3.9 mmol/L (-2.0-2.0)
[2022-12-14] MEDS: PANTOPRAZOLE 40 MG/10 ML VIAL INJ IV SCH (09:33)
[2022-12-14] MEDS: MICAFUNGIN SODIUM 100 MG in SODIUM CHL 0.9% 100 ML IV SCH (09:34)
[2022-12-14] MEDS: ZINC SULFATE 220mg CAP or TAB PO SCH (09:34)
[2022-12-14] MEDS: FUROSEMIDE 20 MG/2 ML VIAL IV SCH (09:34)
[2022-12-14] MEDS: CHOLECALCIFEROL (VITD3) 1,000UNIT=25mCg TAB PO SCH (09:35)
[2022-12-14] MEDS: METOPROLOL TARTRATE 25 MG TAB PO SCH ×2 (09:35→22:10)
[2022-12-14] MEDS: POTASSIUM EFFERVESENT TAB 25 MEQ PO SCH (09:35)
[2022-12-14] MEDS: MIDAZOLAM DRIP 50 mg/50mL 50 ML IV SCH (10:30)
[2022-12-14] MEDS ORDERED: FUROSEMIDE 40 MG/4 ML VIAL IV ONE (15:45)
[2022-12-14] MEDS ORDERED: POTASSIUM EFFERVESENT TAB 25 MEQ GT ONE (15:45)
[2022-12-14] MEDS ORDERED: LABETALOL HCL 5 MG/ML 4ML SYRINGE IV PRN (15:45)
[2022-12-14] MEDS: NOREPINEPHRINE 8 MG/250ML KIT 250 ML IV SCH (20:45)
[2022-12-15] VITALS (80 sets, daily range): BP systolic 103–187; BP diastolic 34–68; PULSE 56–100; RESP 12–30; TEMP 99–99.7; O2SAT 95–100
[2022-12-15 04:13] LABS: Basophils # (auto) 0 10 ^3/uL (0-0.2); Basophils % (auto) 0.2 % (0.0-2.0); Eosinophils # (auto) 0 10 ^3/uL (0-0.8); Eosinophils % (auto) 0.4 % (0.0-7.0); Hematocrit 23.8 % (41.0-53.0); Hemoglobin 8.3 g/dL (13.5-17.5); Lymphocytes # (auto) 0.9 10 ^3/uL (0.4-5.4); Lymphocytes % (auto) 9.5 % (10.0-50.0); Mean Corpuscular Hemoglobin 32.3 pg (28.0-32.0); Mean Corpuscular Hgb Conc. 35.1 g/dL (32.0-36.0); Monocytes # (auto) 0.7 10 ^3/uL (0-1.3); Monocytes % (auto) 7.1 % (0.0-12.0); Neutrophils # (auto) 7.7 10 ^3/uL (1.6-8.6); Neutrophils % (auto) 82.8 % (37.0-80.0); Red Blood Cells 2.59 10^6/uL (4.5-5.90); Red Cell Distribution Width 15.6 % (11.8-14.3); White Blood Cell 9.3 10^3/uL (4.4-10.8)
[2022-12-15 04:22] LABS: Anion Gap 10 (5-15); Calcium 7.9 mg/dL (8.7-10.4); Carbon Dioxide 30 mmol/L (20-30); Chloride 105 mmol/L (98-107); Potassium 3.3 mmol/L (3.5-5.1); Sodium 145 mmol/L (136-145)
[2022-12-15 04:27] LABS: Glucose 161 mg/dL (74-106)
[2022-12-15 04:28] LABS: BUN/Creatinine Ratio 18.2 (10.0-20.0); Blood Urea Nitrogen 18 mg/dL (9-23); Magnesium 1.4 mg/dL (1.6-2.6)
[2022-12-15] MEDS: PIPERACILLIN-TAZOB 3.375GM 100 ML IV SCH ×3 (05:02→21:12)
[2022-12-15] MEDS: DexmedeTOMIDine 200 MCG in D5W 5% 48 ML IV SCH ×2 (05:44→11:15)
[2022-12-15] MEDS: SODIUM CHLOR 0.9% PF (SALINE LOCK) 10ML VIAL/SYR IV SCH ×3 (05:45→22:07)
[2022-12-15] MEDS: ACCU-CHEK COMFORT CURVE STRIP VI SCH ×3 (05:45→18:20)
[2022-12-15] MEDS: POTASSIUM CHL 20MEQ/100ML 100 ML IV SCH ×2 (05:45→08:27)
[2022-12-15] MEDS: LACTULOSE 20Gm/30ML SOLN PO SCH ×3 (05:46→22:07)
[2022-12-15 06:02] LABS: Base Excess 2.5 mmol/L (-2.0-2.0)
[2022-12-15] MEDS: InsuLIN REG 1unit/0.01ml Soln (100units/ml) SC SCH ×3 (06:40→18:18)
[2022-12-15] MEDS: METOPROLOL TARTRATE 25 MG TAB PO SCH ×2 (09:26→22:07)
[2022-12-15] MEDS: MIDAZOLAM DRIP 50 mg/50mL 50 ML IV SCH (09:27)
[2022-12-15] MEDS: POTASSIUM EFFERVESENT TAB 25 MEQ PO SCH (09:35)
[2022-12-15] MEDS: MICAFUNGIN SODIUM 100 MG in SODIUM CHL 0.9% 100 ML IV SCH (09:35)
[2022-12-15] MEDS: FUROSEMIDE 20 MG/2 ML VIAL IV SCH (09:35)
[2022-12-15] MEDS: PANTOPRAZOLE 40 MG/10 ML VIAL INJ IV SCH (10:00)
[2022-12-15] MEDS: ZINC SULFATE 220mg CAP or TAB PO SCH (10:00)
[2022-12-15] MEDS: CHOLECALCIFEROL (VITD3) 1,000UNIT=25mCg TAB PO SCH (10:00)
[2022-12-15 10:32] LABS: Base Excess 2.5 mmol/L (-2.0-2.0)
[2022-12-15] MEDS: MAGNESIUM SULFATE 1GM/100ML 100 ML IV SCH ×2 (11:07→12:13)
[2022-12-15] MEDS: fentaNYL Drip 2500mCg/250mlNS 250 ML IV SCH (13:30)
[2022-12-15] MEDS ORDERED: DEXTROSE (50%) 50ML SYRG IV PRN (15:00)
[2022-12-15] MEDS: TIMOLOL MAL 0.5% OPTH(EYE) SOL 5ML EACHEYE SCH (22:09)
[2022-12-16] VITALS (52 sets, daily range): BP systolic 113–169; BP diastolic 46–71; PULSE 58–136; RESP 12–40; TEMP 94.8–99.9; O2SAT 89–100
[2022-12-16] MEDS: ACCU-CHEK COMFORT CURVE STRIP VI SCH ×5 (00:03→23:55)
[2022-12-16] MEDS: InsuLIN REG 1unit/0.01ml Soln (100units/ml) SC SCH ×5 (00:05→23:59)
[2022-12-16 04:38] LABS: Basophils # (auto) 0 10 ^3/uL (0-0.2); Basophils % (auto) 0.4 % (0.0-2.0); Eosinophils # (auto) 0 10 ^3/uL (0-0.8); Eosinophils % (auto) 0.7 % (0.0-7.0); Hematocrit 25.5 % (41.0-53.0); Hemoglobin 8.5 g/dL (13.5-17.5); Lymphocytes # (auto) 0.5 10 ^3/uL (0.4-5.4); Lymphocytes % (auto) 8.1 % (10.0-50.0); Mean Corpuscular Hemoglobin 30.7 pg (28.0-32.0); Mean Corpuscular Hgb Conc. 33.2 g/dL (32.0-36.0); Mean Corpuscular Volume 92.4 fL (80.0-100.0); Monocytes # (auto) 0.4 10 ^3/uL (0-1.3); Monocytes % (auto) 5.4 % (0.0-12.0); Neutrophils # (auto) 5.6 10 ^3/uL (1.6-8.6); Neutrophils % (auto) 85.4 % (37.0-80.0); Red Blood Cells 2.76 10^6/uL (4.5-5.90); Red Cell Distribution Width 15.1 % (11.8-14.3); White Blood Cell 6.6 10^3/uL (4.4-10.8)
[2022-12-16 04:50] LABS: Chloride 107 mmol/L (98-107); Potassium 3.2 mmol/L (3.5-5.1); Sodium 144 mmol/L (136-145)
[2022-12-16 04:51] LABS: Anion Gap 5 (5-15); Calcium 8.1 mg/dL (8.7-10.4); Carbon Dioxide 32 mmol/L (20-30)
[2022-12-16 04:56] LABS: BUN/Creatinine Ratio 17.6 (10.0-20.0); Blood Urea Nitrogen 15 mg/dL (9-23); Glucose 154 mg/dL (74-106); Magnesium 1.7 mg/dL (1.6-2.6)
[2022-12-16] MEDS: PIPERACILLIN-TAZOB 3.375GM 100 ML IV SCH ×3 (05:03→21:25)
[2022-12-16] MEDS: SODIUM CHLOR 0.9% PF (SALINE LOCK) 10ML VIAL/SYR IV SCH ×3 (05:35→22:11)
[2022-12-16] MEDS: LACTULOSE 20Gm/30ML SOLN PO SCH ×3 (05:35→21:43)
[2022-12-16] MEDS: POTASSIUM CHL 20MEQ/100ML 100 ML IV SCH ×2 (06:39→07:22)
[2022-12-16] MEDS: FUROSEMIDE 20 MG/2 ML VIAL IV SCH (08:55)
[2022-12-16] MEDS: PANTOPRAZOLE 40 MG/10 ML VIAL INJ IV SCH (08:55)
[2022-12-16] MEDS: MICAFUNGIN SODIUM 100 MG in SODIUM CHL 0.9% 100 ML IV SCH (08:55)
[2022-12-16] MEDS: CHOLECALCIFEROL (VITD3) 1,000UNIT=25mCg TAB PO SCH (08:56)
[2022-12-16] MEDS: POTASSIUM EFFERVESENT TAB 25 MEQ PO SCH (08:56)
[2022-12-16] MEDS: TIMOLOL MAL 0.5% OPTH(EYE) SOL 5ML EACHEYE SCH ×2 (08:56→22:11)
[2022-12-16] MEDS: METOPROLOL TARTRATE 25 MG TAB PO SCH ×2 (08:57→21:43)
[2022-12-16 15:33] LABS: Base Excess 0.4 mmol/L (-2.0-2.0)
[2022-12-16] MEDS ORDERED: ENOXAPARIN SOD 30 MG/0.3 ML SYRINGE SC ONE (17:15)
[2022-12-16] MEDS ORDERED: POTASSIUM CHLORIDE 40 MEQ, LIDOCAINE 1% (LOCAL ANESTH.) 4 ML in SODIUM CHL 0.9% 250 ML IV ONE (17:15)
[2022-12-16] MEDS ORDERED: FUROSEMIDE 40 MG/4 ML VIAL IV ONE (17:15)
[2022-12-16] MEDS: METOPROLOL TARTRATE 1MG/1ML-5ML VIAL IV SCH (22:14)
[2022-12-17] VITALS (95 sets, daily range): BP systolic 95–160; BP diastolic 46–100; PULSE 62–114; RESP 15–36; TEMP 98.2–100; O2SAT 93–100
[2022-12-17 04:41] LABS: Basophils # (auto) 0 10 ^3/uL (0-0.2); Basophils % (auto) 0.2 % (0.0-2.0); Eosinophils # (auto) 0 10 ^3/uL (0-0.8); Eosinophils % (auto) 0.3 % (0.0-7.0); Hematocrit 27.1 % (41.0-53.0); Lymphocytes # (auto) 0.7 10 ^3/uL (0.4-5.4); Lymphocytes % (auto) 9.2 % (10.0-50.0); Mean Corpuscular Hemoglobin 31.1 pg (28.0-32.0); Mean Corpuscular Hgb Conc. 33.1 g/dL (32.0-36.0); Mean Corpuscular Volume 93.9 fL (80.0-100.0); Monocytes # (auto) 0.3 10 ^3/uL (0-1.3); Monocytes % (auto) 4.1 % (0.0-12.0); Neutrophils # (auto) 6.3 10 ^3/uL (1.6-8.6); Neutrophils % (auto) 86.2 % (37.0-80.0); Red Blood Cells 2.88 10^6/uL (4.5-5.90); Red Cell Distribution Width 15.1 % (11.8-14.3); White Blood Cell 7.3 10^3/uL (4.4-10.8)
[2022-12-17 05:03] LABS: Alanine Aminotransferase 15 U/L (7-40); Albumin 2.7 g/dL (3.2-4.8); Alkaline Phosphatase 78 U/L (46-116); Anion Gap 13 (5-15); Aspartate Aminotransferase 15 U/L (13-40); BUN/Creatinine Ratio 15.5 (10.0-20.0); Blood Urea Nitrogen 15 mg/dL (9-23); Carbon Dioxide 28 mmol/L (20-30); Chloride 104 mmol/L (98-107); Glucose 156 mg/dL (74-106); Potassium 3.4 mmol/L (3.5-5.1); Sodium 145 mmol/L (136-145)
[2022-12-17 05:04] LABS: Bilirubin, Total 0.5 mg/dL (0.2-1.0); Total Protein 5.8 g/dL (5.7-8.2)
[2022-12-17] MEDS: SODIUM CHLOR 0.9% PF (SALINE LOCK) 10ML VIAL/SYR IV SCH ×3 (05:55→21:39)
[2022-12-17] MEDS: PIPERACILLIN-TAZOB 3.375GM 100 ML IV SCH ×3 (05:55→21:00)
[2022-12-17] MEDS: ACCU-CHEK COMFORT CURVE STRIP VI SCH ×4 (05:55→23:49)
[2022-12-17] MEDS: InsuLIN REG 1unit/0.01ml Soln (100units/ml) SC SCH ×4 (05:56→23:57)
[2022-12-17] MEDS: LACTULOSE 20Gm/30ML SOLN PO SCH ×3 (05:57→21:42)
[2022-12-17] MEDS: FUROSEMIDE 20 MG/2 ML VIAL IV SCH (10:00)
[2022-12-17] MEDS: PANTOPRAZOLE 40 MG/10 ML VIAL INJ IV SCH (10:00)
[2022-12-17] MEDS: POTASSIUM EFFERVESENT TAB 25 MEQ PO SCH (10:00)
[2022-12-17] MEDS: ENOXAPARIN SOD 30 MG/0.3 ML SYRINGE SC SCH (10:01)
[2022-12-17] MEDS: METOPROLOL TARTRATE 1MG/1ML-5ML VIAL IV SCH ×2 (10:01→21:42)
[2022-12-17] MEDS: MICAFUNGIN SODIUM 100 MG in SODIUM CHL 0.9% 100 ML IV SCH (10:02)
[2022-12-17] MEDS: TIMOLOL MAL 0.5% OPTH(EYE) SOL 5ML EACHEYE SCH ×2 (10:02→21:39)
[2022-12-18] VITALS (48 sets, daily range): BP systolic 88–153; BP diastolic 39–67; PULSE 65–97; RESP 12–37; TEMP 98.5–99.3; O2SAT 95–100
[2022-12-18] MEDS: PIPERACILLIN-TAZOB 3.375GM 100 ML IV SCH ×3 (05:25→21:01)
[2022-12-18] MEDS: SODIUM CHLOR 0.9% PF (SALINE LOCK) 10ML VIAL/SYR IV SCH ×3 (05:31→22:07)
[2022-12-18] MEDS: ACCU-CHEK COMFORT CURVE STRIP VI SCH ×3 (05:31→17:17)
[2022-12-18] MEDS: LACTULOSE 20Gm/30ML SOLN PO SCH ×3 (05:35→22:00)
[2022-12-18] MEDS: InsuLIN REG 1unit/0.01ml Soln (100units/ml) SC SCH ×3 (05:35→17:20)
[2022-12-18] MEDS: POTASSIUM EFFERVESENT TAB 25 MEQ PO SCH (09:25)
[2022-12-18] MEDS: PANTOPRAZOLE 40 MG/10 ML VIAL INJ IV SCH (09:26)
[2022-12-18] MEDS: FUROSEMIDE 20 MG/2 ML VIAL IV SCH (09:26)
[2022-12-18] MEDS: MICAFUNGIN SODIUM 100 MG in SODIUM CHL 0.9% 100 ML IV SCH (09:26)
[2022-12-18] MEDS: METOPROLOL TARTRATE 1MG/1ML-5ML VIAL IV SCH ×2 (09:30→22:06)
[2022-12-18] MEDS: TIMOLOL MAL 0.5% OPTH(EYE) SOL 5ML EACHEYE SCH ×2 (09:30→22:07)
[2022-12-18] MEDS: ENOXAPARIN SOD 30 MG/0.3 ML SYRINGE SC SCH (09:31)
[2022-12-18] MEDS ORDERED: VANCOMYCIN PER PHARMACY 0 MG IV SCH (12:45)
[2022-12-18] MEDS ORDERED: VANCOMYCIN 1GM/250ML 250 ML IV ONE (13:00)
[2022-12-18] MEDS: ACETAMINOPHEN 325 MG TAB PO PRN (17:54)
[2022-12-18] MEDS ORDERED: INSULIN LANTUS (GLARGINE) 1 /0.01ml (100units/ml) SC SCH (22:00)
[2022-12-19] VITALS (28 sets, daily range): BP systolic 103–133; BP diastolic 39–80; PULSE 60–79; RESP 11–37; TEMP 97.8–98.6; O2SAT 96–100
[2022-12-19] MEDS: ACCU-CHEK COMFORT CURVE STRIP VI SCH ×7 (00:17→21:50)
[2022-12-19] MEDS: InsuLIN REG 1unit/0.01ml Soln (100units/ml) SC SCH ×5 (00:21→21:56)
[2022-12-19 04:16] LABS: Basophils # (auto) 0 10 ^3/uL (0-0.2); Eosinophils # (auto) 0.3 10 ^3/uL (0-0.8); Hemoglobin 8.4 g/dL (13.5-17.5); Lymphocytes # (auto) 0.6 10 ^3/uL (0.4-5.4); Monocytes # (auto) 0.3 10 ^3/uL (0-1.3); Neutrophils # (auto) 4.7 10 ^3/uL (1.6-8.6)
[2022-12-19 04:18] LABS: Basophils % (auto) 0.5 % (0.0-2.0); Eosinophils % (auto) 5.6 % (0.0-7.0); Hematocrit 24.9 % (41.0-53.0); Lymphocytes % (auto) 10.5 % (10.0-50.0); Mean Corpuscular Hemoglobin 30.8 pg (28.0-32.0); Mean Corpuscular Hgb Conc. 33.8 g/dL (32.0-36.0); Mean Corpuscular Volume 91.3 fL (80.0-100.0); Monocytes % (auto) 5.3 % (0.0-12.0); Neutrophils % (auto) 78.1 % (37.0-80.0); Red Blood Cells 2.73 10^6/uL (4.5-5.90); Red Cell Distribution Width 14.6 % (11.8-14.3)
[2022-12-19 04:26] LABS: Anion Gap 5 (5-15); Carbon Dioxide 32 mmol/L (20-30); Chloride 98 mmol/L (98-107)
[2022-12-19 04:27] LABS: Calcium 7.4 mg/dL (8.7-10.4)
[2022-12-19 04:32] LABS: BUN/Creatinine Ratio 20.4 (10.0-20.0); Blood Urea Nitrogen 19 mg/dL (9-23); Glucose 243 mg/dL (74-106)
[2022-12-19 04:42] LABS: Sodium 135 mmol/L (136-145)
[2022-12-19] MEDS: PIPERACILLIN-TAZOB 3.375GM 100 ML IV SCH ×3 (05:00→20:30)
[2022-12-19] MEDS: ACETAMINOPHEN 325 MG TAB PO PRN (05:01)
[2022-12-19] MEDS: SODIUM CHLOR 0.9% PF (SALINE LOCK) 10ML VIAL/SYR IV SCH ×3 (05:53→21:50)
[2022-12-19] MEDS: LACTULOSE 20Gm/30ML SOLN PO SCH ×3 (05:54→21:50)
[2022-12-19] MEDS: MICAFUNGIN SODIUM 100 MG in SODIUM CHL 0.9% 100 ML IV SCH (09:11)
[2022-12-19] MEDS: PANTOPRAZOLE 40 MG/10 ML VIAL INJ IV SCH (09:11)
[2022-12-19] MEDS: ENOXAPARIN SOD 30 MG/0.3 ML SYRINGE SC SCH (09:11)
[2022-12-19] MEDS: METOPROLOL TARTRATE 1MG/1ML-5ML VIAL IV SCH (09:11)
[2022-12-19] MEDS: TIMOLOL MAL 0.5% OPTH(EYE) SOL 5ML EACHEYE SCH ×2 (09:11→21:51)
[2022-12-19] MEDS: FUROSEMIDE 20 MG/2 ML VIAL IV SCH (09:12)
[2022-12-19] MEDS: POTASSIUM EFFERVESENT TAB 25 MEQ PO SCH (09:12)
[2022-12-19] MEDS ORDERED: DEXTROSE (50%) 50ML SYRG IV PRN (10:45)
[2022-12-19] MEDS ORDERED: POTASSIUM EFFERVESENT TAB 25 MEQ PO ONE (10:45)
[2022-12-19] MEDS: VANCOMYCIN 1GM/250ML 250 ML IV SCH (13:23)
[2022-12-19] MEDS: METOPROLOL TARTRATE 25 MG TAB PO SCH (21:50)
[2022-12-19] MEDS: INSULIN LANTUS (GLARGINE) 1 /0.01ml (100units/ml) SC SCH (21:56)
[2022-12-20] VITALS (29 sets, daily range): BP systolic 105–145; BP diastolic 33–58; PULSE 59–97; RESP 11–38; TEMP 97.8–98.8; O2SAT 96–100
[2022-12-20] MEDS: ACETAMINOPHEN 325 MG TAB PO PRN ×2 (04:29→18:08)
[2022-12-20] MEDS: PIPERACILLIN-TAZOB 3.375GM 100 ML IV SCH (04:30)
[2022-12-20 05:25] LABS: Chloride 100 mmol/L (98-107); Potassium 3.3 mmol/L (3.5-5.1); Sodium 135 mmol/L (136-145)
[2022-12-20 05:26] LABS: Anion Gap 2 (5-15); Carbon Dioxide 33 mmol/L (20-30)
[2022-12-20 05:31] LABS: BUN/Creatinine Ratio 19.1 (10.0-20.0); Blood Urea Nitrogen 18 mg/dL (9-23); Magnesium 1.3 mg/dL (1.6-2.6)
[2022-12-20 05:35] LABS: Glucose 142 mg/dL (74-106)
[2022-12-20] MEDS: LACTULOSE 20Gm/30ML SOLN PO SCH ×3 (06:00→22:00)
[2022-12-20] MEDS: InsuLIN REG 1unit/0.01ml Soln (100units/ml) SC SCH ×4 (06:37→23:34)
[2022-12-20] MEDS: ACCU-CHEK COMFORT CURVE STRIP VI SCH ×4 (06:37→23:17)
[2022-12-20] MEDS: SODIUM CHLOR 0.9% PF (SALINE LOCK) 10ML VIAL/SYR IV SCH ×3 (06:37→23:18)
[2022-12-20] MEDS: POTASSIUM EFFERVESENT TAB 25 MEQ PO SCH (10:32)
[2022-12-20] MEDS: ENOXAPARIN SOD 30 MG/0.3 ML SYRINGE SC SCH (10:33)
[2022-12-20] MEDS: METOPROLOL TARTRATE 25 MG TAB PO SCH ×2 (10:33→23:17)
[2022-12-20] MEDS: PANTOPRAZOLE 40 MG/10 ML VIAL INJ IV SCH (10:33)
[2022-12-20] MEDS: MICAFUNGIN SODIUM 100 MG in SODIUM CHL 0.9% 100 ML IV SCH (10:34)
[2022-12-20] MEDS: TIMOLOL MAL 0.5% OPTH(EYE) SOL 5ML EACHEYE SCH ×2 (10:35→23:16)
[2022-12-20] MEDS ORDERED: POTASSIUM EFFERVESENT TAB 25 MEQ PO ONE (11:15)
[2022-12-20] MEDS: MAGNESIUM SULFATE 1GM/100ML 100 ML IV SCH ×2 (12:15→12:22)
[2022-12-20] MEDS: FUROSEMIDE 20 MG/2 ML VIAL IV SCH (12:23)
[2022-12-20] MEDS: levoFLOXacin 500 MG TAB PO SCH (12:30)
[2022-12-20] MEDS: VANCOMYCIN 1GM/250ML 250 ML IV SCH (14:00)
[2022-12-20] MEDS: INSULIN LANTUS (GLARGINE) 1 /0.01ml (100units/ml) SC SCH (23:33)
[2022-12-21] VITALS (21 sets, daily range): BP systolic 109–146; BP diastolic 47–84; PULSE 63–84; RESP 13–36; TEMP 97.6–98.3; O2SAT 95–100
[2022-12-21 05:37] LABS: Anion Gap 3 (5-15); Carbon Dioxide 31 mmol/L (20-30); Chloride 100 mmol/L (98-107); Potassium 3.1 mmol/L (3.5-5.1); Sodium 134 mmol/L (136-145)
[2022-12-21 05:38] LABS: Calcium 7.2 mg/dL (8.7-10.4)
[2022-12-21 05:42] LABS: Glucose 121 mg/dL (74-106)
[2022-12-21 05:43] LABS: BUN/Creatinine Ratio 16.7 (10.0-20.0); Blood Urea Nitrogen 14 mg/dL (9-23); Magnesium 1.7 mg/dL (1.6-2.6)
[2022-12-21] MEDS: LACTULOSE 20Gm/30ML SOLN PO SCH ×2 (06:00→14:00)
[2022-12-21] MEDS: ACCU-CHEK COMFORT CURVE STRIP VI SCH ×3 (06:18→17:00)
[2022-12-21] MEDS: InsuLIN REG 1unit/0.01ml Soln (100units/ml) SC SCH ×3 (06:18→17:00)
[2022-12-21] MEDS: SODIUM CHLOR 0.9% PF (SALINE LOCK) 10ML VIAL/SYR IV SCH ×2 (06:18→14:01)
[2022-12-21] MEDS ORDERED: PANTOPRAZOLE 40 MG TAB PO SCH (10:00)
[2022-12-21] MEDS: TIMOLOL MAL 0.5% OPTH(EYE) SOL 5ML EACHEYE SCH (10:04)
[2022-12-21] MEDS: FUROSEMIDE 20 MG/2 ML VIAL IV SCH (10:05)
[2022-12-21] MEDS: levoFLOXacin 500 MG TAB PO SCH (10:05)
[2022-12-21] MEDS: METOPROLOL TARTRATE 25 MG TAB PO SCH (10:05)
[2022-12-21] MEDS: ENOXAPARIN SOD 30 MG/0.3 ML SYRINGE SC SCH (10:06)
[2022-12-21] MEDS: POTASSIUM EFFERVESENT TAB 25 MEQ PO SCH (10:06)
[2022-12-21] MEDS: MICAFUNGIN SODIUM 100 MG in SODIUM CHL 0.9% 100 ML IV SCH (10:06)
[2022-12-21] MEDS: ACETAMINOPHEN 325 MG TAB PO PRN (11:29)
[2022-12-21] MEDS ORDERED: POTASSIUM CHL 20 Meq TABLET PO ONE (12:45)
[2022-12-21] MEDS: VANCOMYCIN 1GM/250ML 250 ML IV SCH (14:00)
[2022-12-22] MEDS ORDERED: FUROSEMIDE 40 MG TAB PO SCH (10:00)
== END 2022-12-21 21:06 | DRG 870 ==
LOC: ER 18:37 → EDBD 18:37 → TELE 21:15 → ICU WEST 12-04 18:20 → DOU IN ICU 12-19 23:43
PROVIDERS: ADMIT Nurse Practitioner Family; ATTEND Internal Medicine
PROC: 5A09357 Assistance with Respiratory Ventilation, Less than 24 Consecutive Hours, Continuous Positive Airway Pressure (ICD-10-PCS; 2022-12-03)
PROC: 5A1955Z Respiratory Ventilation, Greater than 96 Consecutive Hours (ICD-10-PCS; principal; 2022-12-04)
PROC: 0BH17EZ Insertion of Endotracheal Airway into Trachea, Via Natural or Artificial Opening (ICD-10-PCS; 2022-12-04)
PROC: 02HV33Z Insertion of Infusion Device into Superior Vena Cava, Percutaneous Approach (ICD-10-PCS; 2022-12-04)
PROC: B548ZZA Ultrasonography of Superior Vena Cava, Guidance (ICD-10-PCS; 2022-12-04)
PROC: 30233N1 Transfusion of Nonautologous Red Blood Cells into Peripheral Vein, Percutaneous Approach (ICD-10-PCS; 2022-12-13)
PROC: 5A09357 Assistance with Respiratory Ventilation, Less than 24 Consecutive Hours, Continuous Positive Airway Pressure (ICD-10-PCS; 2022-12-16)
DX: B37.7 Candidal sepsis (principal); J12.82 Pneumonia due to coronavirus disease 2019; J96.01 Acute respiratory failure with hypoxia; U07.1 COVID-19; R65.21 Severe sepsis with septic shock; I50.43 Acute on chronic combined systolic (congestive) and diastolic (congestive) heart failure; N17.0 Acute kidney failure with tubular necrosis; E87.21 Acute metabolic acidosis; I13.0 Hypertensive heart and chronic kidney disease with heart failure and stage 1 through stage 4 chronic kidney disease, or unspecified chronic kidney disease; J44.0 Chronic obstructive pulmonary disease with (acute) lower respiratory infection; J44.1 Chronic obstructive pulmonary disease with (acute) exacerbation; N39.0 Urinary tract infection, site not specified; E44.0 Moderate protein-calorie malnutrition; Z99.11 Dependence on respirator [ventilator] status; D63.8 Anemia in other chronic diseases classified elsewhere; E11.22 Type 2 diabetes mellitus with diabetic chronic kidney disease; E11.65 Type 2 diabetes mellitus with hyperglycemia; E78.00 Pure hypercholesterolemia, unspecified; R26.81 Unsteadiness on feet; R31.9 Hematuria, unspecified; I48.91 Unspecified atrial fibrillation; K56.41 Fecal impaction; E87.5 Hyperkalemia; R33.9 Retention of urine, unspecified; E86.0 Dehydration; N18.9 Chronic kidney disease, unspecified; N32.89 Other specified disorders of bladder; Z68.29 Body mass index [BMI] 29.0-29.9, adult; Z79.899 Other long term (current) drug therapy; Z83.3 Family history of diabetes mellitus; Z86.73 Personal history of transient ischemic attack (TIA), and cerebral infarction without residual deficits
CPT/HCPCS: 36415; 36600; 71045; 71250; 74176; 80048; 80053; 80202; 81001; 82553; 82805; 82962; 83605; 83735; 83880; 84100; 84132; 84443; 84484; 85007; 85014; 85018; 85025; 85027; 85610; 85730; 86850; 86900; 86901; 86920; 87040; 87070; 87077; 87081; 87086; 87186; 87205; 87426; 92610; 93306; 93970; 93971; 94002; 94003; 94640; 94644; 94660; 96361; 96365; 96366; 96367; 96375; 97110; 97116; 97163; 97530; 99291; C9113; G0378; J1815; J2001; J2248; J2250; J2405; J2543; J2704; J3480; J3490; J7060; P9047

== ENCOUNTER 2023-01-04 10:12 | Inpatient (IN) | payer MEDICARE, BC ==
[~2023-01-04] VITALS: Ht 175.3 cm; Wt 102.6 kg
[2023-01-04 10:49] LABS: Hemoglobin 7.5 g/dL (13.5-17.5); Mean Corpuscular Hemoglobin 29.8 pg (28.0-32.0)
[2023-01-04 10:51] LABS: Hematocrit 22.7 % (41.0-53.0); Mean Corpuscular Hgb Conc. 32.9 g/dL (32.0-36.0); Mean Corpuscular Volume 90.7 fL (80.0-100.0); Red Cell Distribution Width 15.7 % (11.8-14.3); White Blood Cell 5.8 10^3/uL (4.4-10.8)
[2023-01-04 10:54] LABS: Basophils % (manual) 0 (0.0-2.0); Blast Cells 0; Myelocytes % 0; Promyelocytes % 0; Reactive Lymphocytes 0
[2023-01-04 11:15] LABS: Alanine Aminotransferase 12 U/L (7-40); Alkaline Phosphatase 97 U/L (46-116); Calcium 7.7 mg/dL (8.5-10.1); Carbon Dioxide 25 mmol/L (20-30); Chloride 103 mmol/L (98-107); Glucose 272 mg/dL (74-106); Potassium 3.3 mmol/L (3.5-5.1)
[2023-01-04 11:16] LABS: Albumin 2.7 g/dL (3.2-4.8); Anion Gap 6 (5-15); Aspartate Aminotransferase 16 U/L (13-40); Bilirubin, Total 0.4 mg/dL (0.2-1.0); Blood Urea Nitrogen 9 mg/dL (9-23); Sodium 134 mmol/L (136-145); Total Protein 6.2 g/dL (5.7-8.2)
[2023-01-04 11:27] VITALS: PULSE 96; RESP 19; O2SAT 96
[2023-01-04 12:07] LABS: Band Neutrophils % (manual) 1; Eosinophils % (manual) 1 (0-7); Lymphocytes % (manual) 27 (10.0-50.0); Metamyelocytes % 6; Monocytes % (manual) 9 (0-12); Platelet Estimate Adequate
[2023-01-04] MEDS ORDERED: SODIUM CHLORIDE 0.9% 1,000 ML IV ONE (12:45)
[2023-01-04] MEDS ORDERED: POTASSIUM CHL 20MEQ/100ML 100 ML IV ONE (12:45)
[2023-01-04 13:58] LABS: INR 1.15 (0.9-1.15)
[2023-01-04 14:46] LABS: Urine Bacteria FEW /hpf (None Seen); Urine Blood 2+ /uL (Negative); Urine Clarity CLOUDY (Clear); Urine Mucus FEW (None Seen); Urine Protein, UAD 2+ (Negative); Urine WBC <1 /hpf (0 - 3); Urine pH 5.5 (5.0-8.0)
[2023-01-04 15:02] LABS: Urine Color Yellow (Yellow); Urine Specific Gravity 1.015 (1.001-1.035)
[2023-01-04] MEDS ORDERED: CEFTRIAXONE SODIUM 2 GM in D5W 5% 100 ML IV ONE (15:30)
[2023-01-04] MEDS ORDERED: POTASSIUM EFFERVESENT TAB 25 MEQ PO ONE (18:30)
[2023-01-04] MEDS ORDERED: PANTOPRAZOLE 40 MG/10 ML VIAL INJ IV ONE (18:30)
[2023-01-04] MEDS ORDERED: DEXTROSE (50%) 50ML SYRG IV PRN (18:30)
[2023-01-04] MEDS: MAGNESIUM SULFATE 1GM/100ML 100 ML IV SCH ×3 (18:55→21:11)
[2023-01-04 19:40] VITALS: PULSE 96; RESP 20; O2SAT 95
[2023-01-04 19:56] LABS: Platelet Estimate Adequate
[2023-01-04 19:57] LABS: Folate (Folic Acid) 10.88 ng/mL (>5.38)
[2023-01-04] MEDS: SODIUM CHLORIDE 0.9% 1,000 ML IV SCH (20:01)
[2023-01-04 20:53] LABS: % Iron Saturation 10.7 % (20-55)
[2023-01-04 21:38] LABS: Anisocytosis Slight
[2023-01-04] MEDS: ACCU-CHEK COMFORT CURVE STRIP VI SCH (21:49)
[2023-01-04] MEDS: InsuLIN REG 1unit/0.01ml Soln (100units/ml) SC SCH (21:49)
[2023-01-04] MEDS: hydrALAZINE HCL 20 MG/ML VL IV PRN (21:50)
[2023-01-04 23:30] VITALS: BP 123/59; PULSE 107; RESP 16; TEMP 98.4; O2SAT 96
[2023-01-04 23:45] VITALS: BP 123/59; PULSE 107; RESP 16; RESP 18; TEMP 98.4; O2SAT 96
[2023-01-05] VITALS (12 sets, daily range): BP systolic 117–152; BP diastolic 58–72; PULSE 67–105; RESP 16–22; TEMP 97.4–98.7; O2SAT 95–98
[2023-01-05] MEDS ORDERED: TIMO0.5S66 EACHEYE (00:37)
[2023-01-05] MEDS ORDERED: PANT40TA2 PO (00:37)
[2023-01-05] MEDS ORDERED: LACTCAP35 OR (00:37)
[2023-01-05] MEDS ORDERED: INSR100KIT IV (00:37)
[2023-01-05] MEDS ORDERED: INSLANTI SC (00:37)
[2023-01-05] MEDS: HYDROcodone-ACET 5/325MG TAB PO PRN ×3 (01:54→16:52)
[2023-01-05] MEDS: hydrALAZINE HCL 20 MG/ML VL IV PRN (04:49)
[2023-01-05 05:35] LABS: White Blood Cell 4.1 10^3/uL (4.4-10.8)
[2023-01-05 05:37] LABS: Hematocrit 20.3 % (41.0-53.0); Mean Corpuscular Hemoglobin 30.8 pg (28.0-32.0); Mean Corpuscular Hgb Conc. 33.4 g/dL (32.0-36.0); Mean Corpuscular Volume 92.4 fL (80.0-100.0); Red Blood Cells 2.19 10^6/uL (4.5-5.90)
[2023-01-05 05:49] LABS: Hemoglobin 6.8 g/dL (13.5-17.5)
[2023-01-05 05:50] LABS: Alanine Aminotransferase 11 U/L (7-40); Albumin 2.5 g/dL (3.2-4.8); Alkaline Phosphatase 92 U/L (46-116); Anion Gap 6 (5-15); Aspartate Aminotransferase 16 U/L (13-40); BUN/Creatinine Ratio 11.3 (10.0-20.0); Basophils % (manual) 0 (0.0-2.0); Blast Cells 0; Blood Urea Nitrogen 8 mg/dL (9-23); Calcium 7.5 mg/dL (8.7-10.4); Carbon Dioxide 23 mmol/L (20-30); Chloride 107 mmol/L (98-107); Glucose 242 mg/dL (74-106); Magnesium 2.1 mg/dL (1.6-2.6); Potassium 3.1 mmol/L (3.5-5.1); Promyelocytes % 0; Reactive Lymphocytes 0; Sodium 136 mmol/L (136-145)
[2023-01-05 05:51] LABS: Bilirubin, Total 0.3 mg/dL (0.2-1.0); Total Protein 5.7 g/dL (5.7-8.2)
[2023-01-05] MEDS: SODIUM CHLORIDE 0.9% 1,000 ML IV SCH ×2 (06:37→14:41)
[2023-01-05] MEDS: ACCU-CHEK COMFORT CURVE STRIP VI SCH ×4 (06:39→21:56)
[2023-01-05] MEDS: InsuLIN REG 1unit/0.01ml Soln (100units/ml) SC SCH ×4 (06:39→21:56)
[2023-01-05 07:34] LABS: Band Neutrophils % (manual) 6; Eosinophils % (manual) 3 (0-7); Lymphocytes % (manual) 38 (10.0-50.0); Metamyelocytes % 1; Monocytes % (manual) 14 (0-12); Myelocytes % 1
[2023-01-05 07:35] LABS: Anisocytosis Slight; Platelet Estimate Adequate
[2023-01-05] MEDS: PANTOPRAZOLE 40 MG/10 ML VIAL INJ IV SCH (08:46)
[2023-01-05] MEDS: cefTRIAXone 1GM/50ML D5W 50 ML IV SCH (08:46)
[2023-01-05] MEDS ORDERED: ENOXAPARIN SOD 40 MG/0.4 ML SYRINGE SC SCH (10:00)
[2023-01-05] MEDS ORDERED: METOPROLOL SUCCINATE XL 50 MG TAB PO ONE (12:45)
[2023-01-05] MEDS: metroNIDAZOLE 500MG/100ML 100 ML IV SCH ×2 (14:40→21:55)
[2023-01-05 15:29] LABS: COVID19 ANTIGEN SOFIA FIA NEGATIVE (NEGATIVE)
[2023-01-05] MEDS: FUROSEMIDE 20 MG TAB PO SCH (18:41)
[2023-01-05] MEDS: ATORVASTATIN 20 MG TAB PO SCH (21:54)
[2023-01-06] VITALS (7 sets, daily range): BP systolic 130–149; BP diastolic 62–82; PULSE 78–101; RESP 14–22; TEMP 97.7–99.2; O2SAT 91–100
[2023-01-06] MEDS: FUROSEMIDE 20 MG TAB PO SCH (06:00)
[2023-01-06] MEDS: metroNIDAZOLE 500MG/100ML 100 ML IV SCH ×3 (06:05→23:04)
[2023-01-06] MEDS: SODIUM CHLORIDE 0.9% 1,000 ML IV SCH ×3 (06:06→23:04)
[2023-01-06 06:22] LABS: Hematocrit 25.6 % (41.0-53.0); Hemoglobin 8.6 g/dL (13.5-17.5); Mean Corpuscular Hemoglobin 30.9 pg (28.0-32.0); Mean Corpuscular Hgb Conc. 33.8 g/dL (32.0-36.0); Mean Corpuscular Volume 91.6 fL (80.0-100.0); Red Blood Cells 2.79 10^6/uL (4.5-5.90); Red Cell Distribution Width 17.3 % (11.8-14.3)
[2023-01-06] MEDS: ACCU-CHEK COMFORT CURVE STRIP VI SCH ×4 (06:27→23:05)
[2023-01-06] MEDS: InsuLIN REG 1unit/0.01ml Soln (100units/ml) SC SCH ×4 (06:27→22:00)
[2023-01-06 06:29] LABS: Basophils % (manual) 0 (0.0-2.0); Blast Cells 0; Promyelocytes % 0; Reactive Lymphocytes 0
[2023-01-06 07:07] LABS: Alanine Aminotransferase 11 U/L (7-40); Albumin 2.8 g/dL (3.2-4.8); Alkaline Phosphatase 102 U/L (46-116); Anion Gap 9 (5-15); Aspartate Aminotransferase 17 U/L (13-40); BUN/Creatinine Ratio 10.8 (10.0-20.0); Blood Urea Nitrogen 8 mg/dL (9-23); Carbon Dioxide 20 mmol/L (20-30); Chloride 106 mmol/L (98-107); Glucose 176 mg/dL (74-106); Potassium 3.4 mmol/L (3.5-5.1); Sodium 135 mmol/L (136-145)
[2023-01-06 07:08] LABS: Bilirubin, Total 0.3 mg/dL (0.2-1.0); Total Protein 6.6 g/dL (5.7-8.2)
[2023-01-06 07:46] LABS: Band Neutrophils % (manual) 11; Eosinophils % (manual) 4 (0-7); Lymphocytes % (manual) 35 (10.0-50.0); Metamyelocytes % 3; Monocytes % (manual) 18 (0-12); Myelocytes % 1
[2023-01-06 07:47] LABS: Platelet Estimate Adequate
[2023-01-06] MEDS ORDERED: NETA0.02 OP (08:43)
[2023-01-06] MEDS ORDERED: BRIN1SUS7 OP (09:03)
[2023-01-06] MEDS: LISINOPRIL 20 MG TAB PO SCH (10:00)
[2023-01-06] MEDS: METOPROLOL SUCCINATE XL 50 MG TAB PO SCH (10:00)
[2023-01-06] MEDS: cefTRIAXone 1GM/50ML D5W 50 ML IV SCH (13:04)
[2023-01-06] MEDS: PANTOPRAZOLE 40 MG/10 ML VIAL INJ IV SCH ×2 (13:07→13:37)
[2023-01-06] MEDS: HYDROcodone-ACET 5/325MG TAB PO PRN (13:39)
[2023-01-06] MEDS ORDERED: FUROSEMIDE 20 MG/2 ML VIAL IV SCH (18:00)
[2023-01-06] MEDS: RHOPRESSA EYE OP SCH (22:00)
[2023-01-06] MEDS: BRIMONIDINE OP SCH (22:00)
[2023-01-06] MEDS: ATORVASTATIN 20 MG TAB PO SCH (22:00)
[2023-01-06] MEDS: BRINZOLAMIDE OP SCH (22:00)
[2023-01-06] MEDS: TIMOLOL MAL 0.5% OPTH(EYE) SOL 5ML EACHEYE SCH (23:04)
[2023-01-07] VITALS (7 sets, daily range): BP systolic 96–165; BP diastolic 60–88; PULSE 91–103; RESP 17–23; TEMP 97.5–98.5; O2SAT 94–99
[2023-01-07] MEDS: hydrALAZINE HCL 20 MG/ML VL IV PRN (06:20)
[2023-01-07] MEDS: FUROSEMIDE 20 MG/2 ML VIAL IV SCH ×2 (06:20→10:47)
[2023-01-07] MEDS: ACCU-CHEK COMFORT CURVE STRIP VI SCH ×4 (06:21→22:19)
[2023-01-07] MEDS: InsuLIN REG 1unit/0.01ml Soln (100units/ml) SC SCH ×4 (06:21→21:28)
[2023-01-07] MEDS: metroNIDAZOLE 500MG/100ML 100 ML IV SCH ×3 (06:21→21:12)
[2023-01-07] MEDS: SODIUM CHLORIDE 0.9% 1,000 ML IV SCH (06:21)
[2023-01-07 07:12] LABS: Albumin 2.6 g/dL (3.2-4.8); Alkaline Phosphatase 84 U/L (46-116); Anion Gap 13 (5-15); Aspartate Aminotransferase 12 U/L (13-40); BUN/Creatinine Ratio 13.5 (10.0-20.0); Blood Urea Nitrogen 10 mg/dL (9-23); Calcium 7.8 mg/dL (8.5-10.1); Carbon Dioxide 19 mmol/L (20-30); Chloride 108 mmol/L (98-107); Glucose 228 mg/dL (74-106); Potassium 3.5 mmol/L (3.5-5.1); Sodium 140 mmol/L (136-145)
[2023-01-07 07:13] LABS: Bilirubin, Total 0.3 mg/dL (0.2-1.0); Total Protein 6.1 g/dL (5.7-8.2)
[2023-01-07 07:23] LABS: Basophils # (auto) 0 10 ^3/uL (0-0.2); Basophils % (auto) 0.6 % (0.0-2.0); Eosinophils # (auto) 0.1 10 ^3/uL (0-0.8); Lymphocytes # (auto) 1.9 10 ^3/uL (0.4-5.4); Monocytes # (auto) 1.1 10 ^3/uL (0-1.3); Neutrophils # (auto) 1.1 10 ^3/uL (1.6-8.6); White Blood Cell 4.1 10^3/uL (4.4-10.8)
[2023-01-07 07:24] LABS: Alanine Aminotransferase 9 U/L (7-40); Eosinophils % (auto) 1.8 % (0.0-7.0); Hematocrit 24.5 % (41.0-53.0); Lymphocytes % (auto) 45.5 % (10.0-50.0); Mean Corpuscular Hemoglobin 29.2 pg (28.0-32.0); Mean Corpuscular Hgb Conc. 32.7 g/dL (32.0-36.0); Mean Corpuscular Volume 89.2 fL (80.0-100.0); Monocytes % (auto) 26.3 % (0.0-12.0); Neutrophils % (auto) 25.8 % (37.0-80.0); Nucleated Red Blood Cells % 0.4 %; Red Blood Cells 2.74 10^6/uL (4.5-5.90); Red Cell Distribution Width 17.7 % (11.8-14.3)
[2023-01-07] MEDS: BRIMONIDINE OP SCH ×2 (10:00→21:13)
[2023-01-07] MEDS: METOPROLOL SUCCINATE XL 50 MG TAB PO SCH (10:00)
[2023-01-07] MEDS: BRINZOLAMIDE OP SCH ×2 (10:00→21:13)
[2023-01-07] MEDS: LISINOPRIL 20 MG TAB PO SCH (10:00)
[2023-01-07] MEDS: cefTRIAXone 1GM/50ML D5W 50 ML IV SCH (10:48)
[2023-01-07] MEDS: D5W/SOD CHLO 0.9% 1,000 ML IV SCH ×2 (10:48→23:20)
[2023-01-07] MEDS: PANTOPRAZOLE 40 MG/10 ML VIAL INJ IV SCH (10:49)
[2023-01-07] MEDS: TIMOLOL MAL 0.5% OPTH(EYE) SOL 5ML EACHEYE SCH ×2 (10:56→21:09)
[2023-01-07] MEDS: MORPHINE SULFATE INJ 2 MG/ml SYRG IV PRN ×3 (12:45→21:12)
[2023-01-07] MEDS: ATORVASTATIN 20 MG TAB PO SCH (21:12)
[2023-01-07] MEDS: RHOPRESSA EYE OP SCH (21:28)
[2023-01-08] VITALS (7 sets, daily range): BP systolic 138–168; BP diastolic 67–78; PULSE 86–98; RESP 19–23; TEMP 97.5–99.2; O2SAT 98–100
[2023-01-08] MEDS: MORPHINE SULFATE INJ 2 MG/ml SYRG IV PRN ×3 (02:26→22:39)
[2023-01-08] MEDS: metroNIDAZOLE 500MG/100ML 100 ML IV SCH ×3 (05:25→22:37)
[2023-01-08] MEDS: InsuLIN REG 1unit/0.01ml Soln (100units/ml) SC SCH ×4 (06:57→22:00)
[2023-01-08] MEDS: ACCU-CHEK COMFORT CURVE STRIP VI SCH ×4 (06:58→22:00)
[2023-01-08 08:48] LABS: Basophils # (auto) 0 10 ^3/uL (0-0.2); Basophils % (auto) 0.7 % (0.0-2.0); Eosinophils # (auto) 0.1 10 ^3/uL (0-0.8); Eosinophils % (auto) 2.5 % (0.0-7.0); Hematocrit 26.7 % (41.0-53.0); Hemoglobin 8.5 g/dL (13.5-17.5); Lymphocytes # (auto) 1.6 10 ^3/uL (0.4-5.4); Lymphocytes % (auto) 48.6 % (10.0-50.0); Mean Corpuscular Hemoglobin 28.6 pg (28.0-32.0); Mean Corpuscular Hgb Conc. 31.9 g/dL (32.0-36.0); Mean Corpuscular Volume 89.8 fL (80.0-100.0); Monocytes # (auto) 0.9 10 ^3/uL (0-1.3); Neutrophils # (auto) 0.7 10 ^3/uL (1.6-8.6); Neutrophils % (auto) 21.2 % (37.0-80.0); Nucleated Red Blood Cells % 0.5 %; Red Blood Cells 2.97 10^6/uL (4.5-5.90); Red Cell Distribution Width 17.7 % (11.8-14.3); White Blood Cell 3.3 10^3/uL (4.4-10.8)
[2023-01-08 08:57] LABS: Albumin 2.6 g/dL (3.2-4.8); Alkaline Phosphatase 82 U/L (46-116); Anion Gap 14 (5-15); Aspartate Aminotransferase 13 U/L (13-40); BUN/Creatinine Ratio 16.4 (10.0-20.0); Bilirubin, Total 0.3 mg/dL (0.2-1.0); Blood Urea Nitrogen 12 mg/dL (9-23); Carbon Dioxide 18 mmol/L (20-30); Chloride 112 mmol/L (98-107); Glucose 209 mg/dL (74-106); Potassium 3.2 mmol/L (3.5-5.1); Sodium 144 mmol/L (136-145); Total Protein 6.4 g/dL (5.7-8.2)
[2023-01-08 09:02] LABS: Alanine Aminotransferase < 9 U/L (7-40)
[2023-01-08] MEDS: PANTOPRAZOLE 40 MG/10 ML VIAL INJ IV SCH (09:40)
[2023-01-08] MEDS: FUROSEMIDE 20 MG/2 ML VIAL IV SCH (09:51)
[2023-01-08] MEDS: TIMOLOL MAL 0.5% OPTH(EYE) SOL 5ML EACHEYE SCH ×2 (09:51→22:40)
[2023-01-08] MEDS: cefTRIAXone 1GM/50ML D5W 50 ML IV SCH (09:51)
[2023-01-08] MEDS: METOPROLOL SUCCINATE XL 50 MG TAB PO SCH (09:51)
[2023-01-08] MEDS: BRIMONIDINE OP SCH ×2 (09:52→22:00)
[2023-01-08] MEDS: BRINZOLAMIDE OP SCH ×2 (09:52→22:00)
[2023-01-08] MEDS: LISINOPRIL 20 MG TAB PO SCH (09:52)
[2023-01-08] MEDS ORDERED: TPN PER PHARMACY 0 ML IV SCH (11:30)
[2023-01-08] MEDS: D5W/SOD CHLO 0.9% 1,000 ML IV SCH (12:34)
[2023-01-08] MEDS: hydrALAZINE HCL 20 MG/ML VL IV PRN (12:35)
[2023-01-08 13:43] LABS: Magnesium 1.5 mg/dL (1.6-2.6)
[2023-01-08 14:05] LABS: INR 1.35 (0.9-1.15); Partial Thromboplastin Time 28.2 SEC (24.5-34.5); Prothrombin Time 13.9 sec (9.3-11.8)
[2023-01-08] MEDS: POTASSIUM CHL 20MEQ/100ML 100 ML IV SCH ×2 (14:16→18:25)
[2023-01-08] MEDS ORDERED: LIDOCAINE 1% (LOCAL ANESTH.) PF 5ml SDV ID ONE (16:00)
[2023-01-08] MEDS ORDERED: MAGNESIUM SULFATE 1GM/100ML 100 ML IV ONE (17:15)
[2023-01-08] MEDS ORDERED: AMINO ACID INFUSION IN D10W 1,000 ML IV NR (20:00)
[2023-01-08] MEDS: ATORVASTATIN 20 MG TAB PO SCH (22:38)
[2023-01-08] MEDS: SODIUM CHLOR 0.9% PF (SALINE LOCK) 10ML VIAL/SYR IV SCH (22:50)
[2023-01-08] MEDS: RHOPRESSA EYE OP SCH (22:50)
[2023-01-09] VITALS (8 sets, daily range): BP systolic 127–150; BP diastolic 55–68; PULSE 68–89; RESP 18–21; TEMP 97.3–98.7; O2SAT 98
[2023-01-09] MEDS ORDERED: DEXTROSE (50%) 50ML SYRG IV SCH
[2023-01-09] MEDS: InsuLIN REG 1unit/0.01ml Soln (100units/ml) SC SCH ×4 (00:25→18:00)
[2023-01-09] MEDS: ACCU-CHEK COMFORT CURVE STRIP VI SCH ×4 (00:27→18:00)
[2023-01-09] MEDS: D5W/SOD CHLO 0.9% 1,000 ML IV SCH ×3 (02:47→22:00)
[2023-01-09 06:28] LABS: Alkaline Phosphatase 75 U/L (46-116); Anion Gap 8 (5-15); Aspartate Aminotransferase 10 U/L (13-40); BUN/Creatinine Ratio 18.5 (10.0-20.0); Blood Urea Nitrogen 15 mg/dL (9-23); Calcium 7.8 mg/dL (8.5-10.1); Carbon Dioxide 22 mmol/L (20-30); Chloride 115 mmol/L (98-107); Glucose 212 mg/dL (74-106); Potassium 3.1 mmol/L (3.5-5.1); Sodium 145 mmol/L (136-145); Triglycerides 113 mg/dL (< 150)
[2023-01-09 06:29] LABS: Albumin 2.5 g/dL (3.2-4.8)
[2023-01-09 06:30] LABS: Bilirubin, Total 0.2 mg/dL (0.2-1.0); Phosphorus 2.2 mg/dL (2.4-5.1); Total Protein 6.2 g/dL (5.7-8.2)
[2023-01-09 06:35] LABS: Alanine Aminotransferase < 9 U/L (7-40)
[2023-01-09] MEDS: MORPHINE SULFATE INJ 2 MG/ml SYRG IV PRN ×2 (06:49→15:54)
[2023-01-09] MEDS: metroNIDAZOLE 500MG/100ML 100 ML IV SCH ×3 (06:49→21:59)
[2023-01-09] MEDS: METOPROLOL SUCCINATE XL 50 MG TAB PO SCH (09:05)
[2023-01-09] MEDS: PANTOPRAZOLE 40 MG/10 ML VIAL INJ IV SCH (09:06)
[2023-01-09] MEDS: LISINOPRIL 20 MG TAB PO SCH (09:06)
[2023-01-09] MEDS: cefTRIAXone 1GM/50ML D5W 50 ML IV SCH (09:07)
[2023-01-09] MEDS: FUROSEMIDE 20 MG/2 ML VIAL IV SCH (09:07)
[2023-01-09] MEDS: SODIUM CHLOR 0.9% PF (SALINE LOCK) 10ML VIAL/SYR IV SCH ×2 (09:07→22:00)
[2023-01-09] MEDS: BRIMONIDINE OP SCH ×2 (10:00→22:00)
[2023-01-09] MEDS: BRINZOLAMIDE OP SCH ×2 (10:00→22:00)
[2023-01-09] MEDS ORDERED: FLUCONAZOLE 200MG/100ML 100 ML IV ONE (10:45)
[2023-01-09] MEDS ORDERED: POTASSIUM PHOSPHATE 44 MEQ in D5W 5% 250 ML IV ONE (12:00)
[2023-01-09 12:33] LABS: Magnesium 1.5 mg/dL (1.6-2.6)
[2023-01-09] MEDS: LINEZOLID 600MG/300ML 300 ML IV SCH ×2 (12:36→21:59)
[2023-01-09] MEDS: TIMOLOL MAL 0.5% OPTH(EYE) SOL 5ML EACHEYE SCH ×2 (12:39→22:01)
[2023-01-09] MEDS ORDERED: TPN PER PHARMACY IV NR ×10 (20:00)
[2023-01-09] MEDS: ATORVASTATIN 20 MG TAB PO SCH (22:00)
[2023-01-09] MEDS: RHOPRESSA EYE OP SCH (23:30)
[2023-01-10] MEDS: ACCU-CHEK COMFORT CURVE STRIP VI SCH ×4 (00:37→17:21)
[2023-01-10] MEDS: InsuLIN REG 1unit/0.01ml Soln (100units/ml) SC SCH ×4 (00:39→17:22)
[2023-01-10] MEDS: MORPHINE SULFATE INJ 2 MG/ml SYRG IV PRN ×2 (01:09→05:09)
[2023-01-10 05:00] VITALS: BP 138/74; PULSE 80; RESP 20; TEMP 100.5; O2SAT 99
[2023-01-10] MEDS: metroNIDAZOLE 500MG/100ML 100 ML IV SCH ×3 (05:05→22:10)
[2023-01-10 06:14] LABS: Alkaline Phosphatase 78 U/L (46-116); BUN/Creatinine Ratio 15.8 (10.0-20.0); Blood Urea Nitrogen 15 mg/dL (9-23); Calcium 7.6 mg/dL (8.7-10.4); Chloride 114 mmol/L (98-107); Glucose 305 mg/dL (74-106); Magnesium 1.3 mg/dL (1.6-2.6); Potassium 3.3 mmol/L (3.5-5.1); Sodium 142 mmol/L (136-145)
[2023-01-10 06:15] LABS: Albumin 2.4 g/dL (3.2-4.8); Aspartate Aminotransferase 10 U/L (13-40)
[2023-01-10 06:16] LABS: Bilirubin, Total 0.2 mg/dL (0.2-1.0)
[2023-01-10 06:59] LABS: Alanine Aminotransferase < 9 U/L (7-40); Anion Gap 9 (5-15); Carbon Dioxide 19 mmol/L (20-30)
[2023-01-10 08:00] VITALS: PULSE 95; PULSE 97; RESP 22; O2SAT 99
[2023-01-10 08:45] VITALS: BP 144/87; PULSE 95; RESP 22; TEMP 99; O2SAT 99
[2023-01-10] MEDS: SODIUM CHLOR 0.9% PF (SALINE LOCK) 10ML VIAL/SYR IV SCH ×2 (09:26→22:00)
[2023-01-10] MEDS: FUROSEMIDE 20 MG/2 ML VIAL IV SCH (09:26)
[2023-01-10] MEDS: PANTOPRAZOLE 40 MG/10 ML VIAL INJ IV SCH (09:26)
[2023-01-10] MEDS ORDERED: IOTHALAMATE MEGLUMINE INJ 250ML BOT UR ONE (09:29)
[2023-01-10] MEDS: METOPROLOL SUCCINATE XL 50 MG TAB PO SCH (09:39)
[2023-01-10] MEDS: BRINZOLAMIDE OP SCH ×2 (09:39→22:00)
[2023-01-10] MEDS: LISINOPRIL 20 MG TAB PO SCH (09:39)
[2023-01-10] MEDS: BRIMONIDINE OP SCH ×2 (09:39→22:00)
[2023-01-10] MEDS: TIMOLOL MAL 0.5% OPTH(EYE) SOL 5ML EACHEYE SCH ×2 (10:36→22:00)
[2023-01-10] MEDS: FLUCONAZOLE 200MG/100ML 100 ML IV SCH (10:36)
[2023-01-10] MEDS: LINEZOLID 600MG/300ML 300 ML IV SCH ×2 (10:44→22:10)
[2023-01-10] MEDS ORDERED: POTASSIUM CHLORIDE 40 MEQ, LIDOCAINE 1% (LOCAL ANESTH.) 4 ML in SODIUM CHL 0.9% 250 ML IV ONE (11:00)
[2023-01-10] MEDS: MAGNESIUM SULFATE 1GM/100ML 100 ML IV SCH ×3 (12:18→15:06)
[2023-01-10 12:36] VITALS: BP 132/56; PULSE 76; RESP 18; TEMP 97.5; O2SAT 99
[2023-01-10 17:00] VITALS: BP 139/75; PULSE 66; RESP 19; TEMP 97.9; O2SAT 100
[2023-01-10] MEDS: D5W/SOD CHLO 0.9% 1,000 ML IV SCH ×2 (18:00→22:10)
[2023-01-10 20:00] VITALS: PULSE 66; RESP 20; O2SAT 100
[2023-01-10] MEDS ORDERED: TPN PER PHARMACY IV NR ×10 (20:00)
[2023-01-10] MEDS: RHOPRESSA EYE OP SCH (22:00)
[2023-01-10] MEDS: ATORVASTATIN 20 MG TAB PO SCH (22:10)
[2023-01-10] MEDS: ACETAMINOPHEN 325 MG TAB PO PRN (22:47)
[2023-01-11] MEDS: ACCU-CHEK COMFORT CURVE STRIP VI SCH ×4 (01:45→18:17)
[2023-01-11] MEDS: InsuLIN REG 1unit/0.01ml Soln (100units/ml) SC SCH ×4 (01:50→18:42)
[2023-01-11 05:49] VITALS: BP 152/80; PULSE 72; RESP 20; O2SAT 99
[2023-01-11 06:01] LABS: Potassium 3.6 mmol/L (3.5-5.1)
[2023-01-11 06:02] LABS: Calcium 7.8 mg/dL (8.7-10.4)
[2023-01-11 06:07] LABS: BUN/Creatinine Ratio 18.5 (10.0-20.0); Magnesium 1.8 mg/dL (1.6-2.6)
[2023-01-11 06:09] LABS: Albumin 2.5 g/dL (3.2-4.8); Phosphorus 2.4 mg/dL (2.4-5.1)
[2023-01-11] MEDS: metroNIDAZOLE 500MG/100ML 100 ML IV SCH ×3 (06:19→23:07)
[2023-01-11 08:15] VITALS: O2SAT 99
[2023-01-11] MEDS: LISINOPRIL 20 MG TAB PO SCH (08:32)
[2023-01-11] MEDS: METOPROLOL SUCCINATE XL 50 MG TAB PO SCH (08:32)
[2023-01-11 09:00] VITALS: BP 157/73; PULSE 73; RESP 20; TEMP 97.6; O2SAT 99
[2023-01-11] MEDS: BRINZOLAMIDE OP SCH ×2 (10:00→23:08)
[2023-01-11] MEDS: BRIMONIDINE OP SCH ×2 (10:00→23:08)
[2023-01-11] MEDS: TIMOLOL MAL 0.5% OPTH(EYE) SOL 5ML EACHEYE SCH ×2 (10:03→23:07)
[2023-01-11] MEDS: LINEZOLID 600MG/300ML 300 ML IV SCH ×2 (10:04→23:07)
[2023-01-11] MEDS: FUROSEMIDE 20 MG/2 ML VIAL IV SCH (10:04)
[2023-01-11] MEDS: PANTOPRAZOLE 40 MG/10 ML VIAL INJ IV SCH (10:04)
[2023-01-11] MEDS: FLUCONAZOLE 200MG/100ML 100 ML IV SCH (10:04)
[2023-01-11] MEDS: SODIUM CHLOR 0.9% PF (SALINE LOCK) 10ML VIAL/SYR IV SCH ×2 (10:05→23:07)
[2023-01-11] MEDS: hydrALAZINE HCL 20 MG/ML VL IV PRN ×2 (10:05→18:18)
[2023-01-11 11:07] LABS: Hematocrit 24.5 % (41.0-53.0)
[2023-01-11 11:08] LABS: Mean Corpuscular Hemoglobin 30.8 pg (28.0-32.0); Mean Corpuscular Hgb Conc. 32.5 g/dL (32.0-36.0); Mean Corpuscular Volume 94.9 fL (80.0-100.0); Red Blood Cells 2.59 10^6/uL (4.5-5.90); Red Cell Distribution Width 18.5 % (11.8-14.3); White Blood Cell 7.2 10^3/uL (4.4-10.8)
[2023-01-11 11:12] LABS: Basophils % (manual) 0 (0.0-2.0); Reactive Lymphocytes 0
[2023-01-11] MEDS ORDERED: POTASSIUM PHOSP 22MEQ(15MMOLE) in NS 100 ML IV ONE (11:45)
[2023-01-11 12:02] LABS: Band Neutrophils % (manual) 7; Blast Cells 1; Eosinophils % (manual) 11 (0-7); Lymphocytes % (manual) 31 (10.0-50.0); Metamyelocytes % 5; Monocytes % (manual) 15 (0-12); Myelocytes % 1; Platelet Estimate Increased; Promyelocytes % 1
[2023-01-11 13:00] VITALS: BP 150/85; PULSE 87; RESP 20; TEMP 97.9; O2SAT 98
[2023-01-11 16:47] VITALS: BP 168/86; PULSE 95; RESP 20; TEMP 98.6; O2SAT 98
[2023-01-11] MEDS: MORPHINE SULFATE INJ 2 MG/ml SYRG IV PRN (18:52)
[2023-01-11] MEDS: D5W/SOD CHLO 0.9% 1,000 ML IV SCH (19:16)
[2023-01-11] MEDS ORDERED: TPN PER PHARMACY IV NR ×10 (20:00)
[2023-01-11] MEDS ORDERED: dilTIAZem 25 MG/5 ML VIAL IV ONE (20:45)
[2023-01-11] MEDS: ACETAMINOPHEN 325 MG TAB PO PRN (21:21)
[2023-01-11] MEDS: RHOPRESSA EYE OP SCH (21:38)
[2023-01-11 22:00] VITALS: BP 171/76; PULSE 96; RESP 18; TEMP 98; O2SAT 97
[2023-01-11] MEDS: ATORVASTATIN 20 MG TAB PO SCH (23:08)
[2023-01-12] VITALS (26 sets, daily range): BP systolic 85–170; BP diastolic 27–84; PULSE 70–98; RESP 10–24; TEMP 97.6–98.9; O2SAT 95–100
[2023-01-12] MEDS: ACCU-CHEK COMFORT CURVE STRIP VI SCH ×4 (06:00→18:00)
[2023-01-12] MEDS: metroNIDAZOLE 500MG/100ML 100 ML IV SCH ×3 (06:00→21:17)
[2023-01-12] MEDS: InsuLIN REG 1unit/0.01ml Soln (100units/ml) SC SCH ×4 (06:00→18:00)
[2023-01-12] MEDS: METOPROLOL SUCCINATE XL 50 MG TAB PO SCH (10:00)
[2023-01-12] MEDS: FUROSEMIDE 20 MG/2 ML VIAL IV SCH (10:00)
[2023-01-12] MEDS: FLUCONAZOLE 200MG/100ML 100 ML IV SCH (10:00)
[2023-01-12] MEDS: LISINOPRIL 20 MG TAB PO SCH (10:00)
[2023-01-12] MEDS: PANTOPRAZOLE 40 MG/10 ML VIAL INJ IV SCH (10:00)
[2023-01-12] MEDS: BRINZOLAMIDE OP SCH ×2 (10:00→22:00)
[2023-01-12] MEDS: TIMOLOL MAL 0.5% OPTH(EYE) SOL 5ML EACHEYE SCH ×2 (10:00→21:39)
[2023-01-12] MEDS: BRIMONIDINE OP SCH ×2 (10:00→22:00)
[2023-01-12] MEDS: SODIUM CHLOR 0.9% PF (SALINE LOCK) 10ML VIAL/SYR IV SCH ×2 (10:00→21:17)
[2023-01-12] MEDS: LINEZOLID 600MG/300ML 300 ML IV SCH ×2 (10:00→22:20)
[2023-01-12] MEDS ORDERED: GLYCOPYRROLATE 0.2 MG/ML 1ML VIAL ONE (11:44)
[2023-01-12] MEDS ORDERED: ONDANSETRON HCL 4 MG/2 ML VIAL ONE (11:44)
[2023-01-12] MEDS ORDERED: PROPOFOL 10 MG/ML 20 ML IV ONE (11:44)
[2023-01-12] MEDS ORDERED: KETOROLAC TROMETH 60MG/2ML VIAL ONE (11:44)
[2023-01-12] MEDS ORDERED: ROCURONIUM 10MG/ML 10ML VIAL IV ONE ×3 (11:44→17:01)
[2023-01-12] MEDS ORDERED: DexAMETHasone SOD PHOS 10MG/1ML VIAL INJ ONE (11:44)
[2023-01-12] MEDS ORDERED: LIDOCAINE 2% (LOCAL ANESTH.) PF 5ml SDV ONE (11:44)
[2023-01-12] MEDS ORDERED: CELECOXIB 100 MG CAP PO ONE (11:45)
[2023-01-12] MEDS ORDERED: ACETAMINOPHEN IV 1000 MG/100ML (10MG/ML) IV ONE (11:45)
[2023-01-12] MEDS ORDERED: GABAPENTIN 100 MG CAP PO ONE (11:45)
[2023-01-12] MEDS ORDERED: SODIUM CHLORIDE LOCK 10 ML ONE ×3 (11:49→13:53)
[2023-01-12] MEDS ORDERED: SUGAMMADEX 200mg/2ml Vial (100MG/ML) IV ONE (11:50)
[2023-01-12] MEDS ORDERED: LIDOCAINE 1% (LOCAL ANESTH.) PF 5ml SDV ONE (11:51)
[2023-01-12] MEDS ORDERED: SODIUM CHLORIDE LOCK 40 ML ONE (11:59)
[2023-01-12] MEDS: D5W/SOD CHLO 0.9% 1,000 ML IV SCH (12:00)
[2023-01-12 12:20] LABS: Alanine Aminotransferase < 9 U/L (7-40); Albumin 2.7 g/dL (3.2-4.8); Alkaline Phosphatase 82 U/L (46-116); Anion Gap 8 (5-15); Aspartate Aminotransferase 27 U/L (13-40); Bilirubin, Total 0.2 mg/dL (0.2-1.0); Blood Urea Nitrogen 15 mg/dL (9-23); Carbon Dioxide 22 mmol/L (20-30); Chloride 112 mmol/L (98-107); Glucose 239 mg/dL (74-106); Phosphorus 2.7 mg/dL (2.4-5.1); Potassium 3.6 mmol/L (3.5-5.1); Sodium 142 mmol/L (136-145); Total Protein 6.5 g/dL (5.7-8.2)
[2023-01-12] MEDS ORDERED: LIDOCAINE 1% HCL (LOCAL ANESTH.) INJ 20ML MDV ONE (12:22)
[2023-01-12 12:40] LABS: Hematocrit 28.7 % (41.0-53.0); Hemoglobin 9.4 g/dL (13.5-17.5); Mean Corpuscular Hemoglobin 28.8 pg (28.0-32.0); Mean Corpuscular Hgb Conc. 32.7 g/dL (32.0-36.0); Mean Corpuscular Volume 88.1 fL (80.0-100.0); Red Blood Cells 3.26 10^6/uL (4.5-5.90); Red Cell Distribution Width 17.6 % (11.8-14.3); White Blood Cell 10.2 10^3/uL (4.4-10.8)
[2023-01-12 12:42] LABS: Basophils % (manual) 0 (0.0-2.0); Blast Cells 0; Myelocytes % 0; Reactive Lymphocytes 0
[2023-01-12 12:58] LABS: Albumin 2.8 g/dL (3.2-4.8); Alkaline Phosphatase 89 U/L (46-116); Anion Gap 8 (5-15); Aspartate Aminotransferase 33 U/L (13-40); BUN/Creatinine Ratio 18.5 (10.0-20.0); Bilirubin, Total 0.3 mg/dL (0.2-1.0); Blood Urea Nitrogen 15 mg/dL (9-23); Calcium 8.1 mg/dL (8.5-10.1); Carbon Dioxide 22 mmol/L (20-30); Chloride 112 mmol/L (98-107); Glucose 280 mg/dL (74-106); Potassium 3.9 mmol/L (3.5-5.1); Sodium 142 mmol/L (136-145); Total Protein 6.9 g/dL (5.7-8.2)
[2023-01-12 13:01] LABS: Alanine Aminotransferase < 9 U/L (7-40)
[2023-01-12] MEDS ORDERED: PHENYLEPHRINE HCL 10 MG/ML VL ONE (13:52)
[2023-01-12] MEDS ORDERED: ePHEDrine SULFATE 50 MG/ML AMP ONE (13:53)
[2023-01-12 15:05] LABS: Magnesium 1.7 mg/dL (1.6-2.6)
[2023-01-12 15:31] LABS: Band Neutrophils % (manual) 4; Eosinophils % (manual) 4 (0-7); Lymphocytes % (manual) 30 (10.0-50.0); Metamyelocytes % 1; Monocytes % (manual) 7 (0-12); Promyelocytes % 3
[2023-01-12 15:32] LABS: Platelet Estimate Increased
[2023-01-12] MEDS ORDERED: CALCIUM CHLOR(10%) 100MG/ML 10ML SYRINGE IV ONE (15:39)
[2023-01-12] MEDS ORDERED: HYDROmorphone HCL 2 MG/ML VL/or syr ONE ×2 (15:45→17:03)
[2023-01-12] MEDS ORDERED: fentaNYL CITRATE 100 MCG/2 ML VL ONE ×2 (15:45→16:54)
[2023-01-12] MEDS ORDERED: MIDAZOLAM HCL 2MG/2ML 2ml VIAL (1mg/ml) ONE ×2 (15:46→17:03)
[2023-01-12] MEDS ORDERED: SODIUM BICARBONATE 8.4 % INJ 50ML VIAL IV ONE ×2 (15:56→20:30)
[2023-01-12 15:59] LABS: Base Excess -9.9 mmol/L (-2.0-2.0)
[2023-01-12] MEDS ORDERED: fentaNYL Drip 2500mCg/250mlNS 250 ML IV SCH (17:00)
[2023-01-12] MEDS ORDERED: MIDAZOLAM DRIP 50 mg/50mL 50 ML IV SCH (17:00)
[2023-01-12 19:17] LABS: Base Excess -8.9 mmol/L (-2.0-2.0)
[2023-01-12] MEDS ORDERED: TPN PER PHARMACY IV NR ×11 (20:00)
[2023-01-12] MEDS: LACTATED RINGER'S 1,000 ML IV SCH (20:09)
[2023-01-12 20:30] LABS: Hematocrit 31.4 % (41.0-53.0); Hemoglobin 10.2 g/dL (13.5-17.5); Mean Corpuscular Hemoglobin 29.4 pg (28.0-32.0); Mean Corpuscular Hgb Conc. 32.4 g/dL (32.0-36.0); Mean Corpuscular Volume 90.9 fL (80.0-100.0); Red Blood Cells 3.45 10^6/uL (4.5-5.90); Red Cell Distribution Width 16.9 % (11.8-14.3)
[2023-01-12] MEDS: PHENYLEPHRINE IV 250 ML IV SCH (20:30)
[2023-01-12 20:36] LABS: Basophils % (manual) 0 (0.0-2.0); Blast Cells 0; Eosinophils % (manual) 0 (0-7); Myelocytes % 0; Promyelocytes % 0; Reactive Lymphocytes 0
[2023-01-12 20:55] LABS: Anisocytosis Slight; Band Neutrophils % (manual) 25; Lymphocytes % (manual) 7 (10.0-50.0); Metamyelocytes % 2; Monocytes % (manual) 7 (0-12); Platelet Estimate Adequate
[2023-01-12] MEDS: fentaNYL Drip 2500mCg/250mlNS 250 ML IV SCH (21:16)
[2023-01-12] MEDS: ATORVASTATIN 20 MG TAB PO SCH (21:17)
[2023-01-12] MEDS: MIDAZOLAM DRIP 50 mg/50mL 50 ML IV SCH (21:18)
[2023-01-12 21:29] LABS: Albumin 2.2 g/dL (3.2-4.8); Alkaline Phosphatase 77 U/L (46-116); Anion Gap 6 (5-15); Aspartate Aminotransferase 24 U/L (13-40); BUN/Creatinine Ratio 22.8 (10.0-20.0); Bilirubin, Total 0.3 mg/dL (0.2-1.0); Blood Urea Nitrogen 18 mg/dL (9-23); Calcium 7.8 mg/dL (8.5-10.1); Carbon Dioxide 21 mmol/L (20-30); Chloride 115 mmol/L (98-107); Glucose 356 mg/dL (74-106); Potassium 4.7 mmol/L (3.5-5.1); Sodium 142 mmol/L (136-145); Total Protein 5.4 g/dL (5.7-8.2)
[2023-01-12] MEDS: RHOPRESSA EYE OP SCH (21:39)
[2023-01-12 21:42] LABS: Alanine Aminotransferase < 9 U/L (7-40)
[2023-01-13] VITALS (105 sets, daily range): BP systolic 105–167; BP diastolic 34–73; PULSE 60–94; RESP 14–21; TEMP 97.5–98.3; O2SAT 95–100
[2023-01-13] MEDS: ACCU-CHEK COMFORT CURVE STRIP VI SCH ×6 (00:13→23:51)
[2023-01-13] MEDS: InsuLIN REG 1unit/0.01ml Soln (100units/ml) SC SCH ×6 (00:15→23:54)
[2023-01-13] MEDS: ALBUTEROL SULF 2.5 MG/0.5ML(0.5%) NEB SOLN NEB SCH ×4 (00:36→18:56)
[2023-01-13] MEDS: IPRATROPIUM BROM 0.5 MG/2.5ML INH SOL NEB SCH ×4 (00:37→18:56)
[2023-01-13] MEDS: LACTATED RINGER'S 1,000 ML IV SCH ×4 (03:25→20:00)
[2023-01-13] MEDS: PHENYLEPHRINE IV 250 ML IV SCH ×3 (04:50→21:30)
[2023-01-13 05:25] LABS: Albumin 2.1 g/dL (3.2-4.8); Alkaline Phosphatase 72 U/L (46-116); Anion Gap 6 (5-15); Aspartate Aminotransferase 21 U/L (13-40); BUN/Creatinine Ratio 24.4 (10.0-20.0); Bilirubin, Total 0.2 mg/dL (0.2-1.0); Blood Urea Nitrogen 20 mg/dL (9-23); Calcium 7.7 mg/dL (8.7-10.4); Carbon Dioxide 25 mmol/L (20-30); Chloride 112 mmol/L (98-107); Magnesium 1.5 mg/dL (1.6-2.6); Phosphorus 3.7 mg/dL (2.4-5.1); Potassium 4.4 mmol/L (3.5-5.1); Sodium 143 mmol/L (136-145)
[2023-01-13] MEDS: metroNIDAZOLE 500MG/100ML 100 ML IV SCH ×3 (05:35→21:35)
[2023-01-13 05:56] LABS: Alanine Aminotransferase < 9 U/L (7-40); Glucose 447 mg/dL (74-106)
[2023-01-13] MEDS ORDERED: DEXTROSE (50%) 50ML SYRG IV PRN (08:30)
[2023-01-13 08:51] LABS: Base Excess -2.7 mmol/L (-2.0-2.0)
[2023-01-13 08:57] LABS: Basophils # (auto) 0.1 10 ^3/uL (0-0.2); Basophils % (auto) 0.4 % (0.0-2.0); Eosinophils # (auto) 0 10 ^3/uL (0-0.8); Hematocrit 28.5 % (41.0-53.0); Hemoglobin 9.2 g/dL (13.5-17.5); Lymphocytes # (auto) 1.3 10 ^3/uL (0.4-5.4); Lymphocytes % (auto) 8.7 % (10.0-50.0); Mean Corpuscular Hemoglobin 29.4 pg (28.0-32.0); Mean Corpuscular Hgb Conc. 32.1 g/dL (32.0-36.0); Mean Corpuscular Volume 91.6 fL (80.0-100.0); Monocytes # (auto) 0.9 10 ^3/uL (0-1.3); Monocytes % (auto) 6.2 % (0.0-12.0); Neutrophils # (auto) 12.7 10 ^3/uL (1.6-8.6); Neutrophils % (auto) 84.7 % (37.0-80.0); Nucleated Red Blood Cells % 0.1 %; Red Blood Cells 3.11 10^6/uL (4.5-5.90); Red Cell Distribution Width 16.9 % (11.8-14.3)
[2023-01-13] MEDS: SODIUM CHLOR 0.9% PF (SALINE LOCK) 10ML VIAL/SYR IV SCH ×2 (10:00→21:35)
[2023-01-13] MEDS: BRIMONIDINE OP SCH ×2 (10:00→21:35)
[2023-01-13] MEDS: BRINZOLAMIDE OP SCH ×2 (10:00→21:35)
[2023-01-13] MEDS: LISINOPRIL 20 MG TAB PO SCH (10:00)
[2023-01-13] MEDS: METOPROLOL SUCCINATE XL 50 MG TAB PO SCH (10:00)
[2023-01-13] MEDS ORDERED: INSULIN LANTUS (GLARGINE) 1 /0.01ml (100units/ml) SC SCH (10:00)
[2023-01-13] MEDS: PANTOPRAZOLE 40 MG/10 ML VIAL INJ IV SCH (10:00)
[2023-01-13] MEDS ORDERED: MAGNESIUM SULFATE 1GM/100ML 100 ML IV ONE (11:00)
[2023-01-13] MEDS ORDERED: PIPERACILLIN-TAZOB 3.375GM 100 ML IV SCH (12:00)
[2023-01-13 12:15] LABS: Base Excess 1.1 mmol/L (-2.0-2.0)
[2023-01-13] MEDS: PIPERACILLIN-TAZOB 3.375GM 100 ML IV SCH ×2 (13:05→17:59)
[2023-01-13] MEDS: FLUCONAZOLE 200MG/100ML 100 ML IV SCH (13:08)
[2023-01-13] MEDS: LINEZOLID 600MG/300ML 300 ML IV SCH ×2 (13:08→21:42)
[2023-01-13] MEDS: FUROSEMIDE 20 MG/2 ML VIAL IV SCH (13:08)
[2023-01-13] MEDS: INSULIN LANTUS (GLARGINE) 1 /0.01ml (100units/ml) SC SCH ×2 (13:16→21:46)
[2023-01-13] MEDS: TIMOLOL MAL 0.5% OPTH(EYE) SOL 5ML EACHEYE SCH ×2 (13:26→21:36)
[2023-01-13] MEDS: fentaNYL Drip 2500mCg/250mlNS 250 ML IV SCH (19:00)
[2023-01-13] MEDS: MIDAZOLAM DRIP 50 mg/50mL 50 ML IV SCH (19:00)
[2023-01-13] MEDS ORDERED: TPN PER PHARMACY IV NR ×11 (20:00)
[2023-01-13] MEDS: ATORVASTATIN 20 MG TAB PO SCH (21:36)
[2023-01-13] MEDS: RHOPRESSA EYE OP SCH (21:37)
[2023-01-13] MEDS ORDERED: FAMOTIDINE (10MG/ML) 2ML VL IV SCH (22:00)
[2023-01-14] VITALS (110 sets, daily range): BP systolic 66–180; BP diastolic 40–82; PULSE 61–129; RESP 8–22; TEMP 97.5–98.5; O2SAT 94–100
[2023-01-14] MEDS: IPRATROPIUM BROM 0.5 MG/2.5ML INH SOL NEB SCH ×4 (00:27→18:08)
[2023-01-14] MEDS: PIPERACILLIN-TAZOB 3.375GM 100 ML IV SCH ×3 (03:06→22:41)
[2023-01-14 04:05] LABS: Basophils # (auto) 0 10 ^3/uL (0-0.2); Eosinophils # (auto) 0 10 ^3/uL (0-0.8); Hemoglobin 8.1 g/dL (13.5-17.5); Monocytes # (auto) 1.2 10 ^3/uL (0-1.3); White Blood Cell 15.6 10^3/uL (4.4-10.8)
[2023-01-14 04:07] LABS: Basophils % (auto) 0.1 % (0.0-2.0); Hematocrit 24.2 % (41.0-53.0); Lymphocytes # (auto) 1.1 10 ^3/uL (0.4-5.4); Lymphocytes % (auto) 7.2 % (10.0-50.0); Mean Corpuscular Hemoglobin 30.3 pg (28.0-32.0); Mean Corpuscular Hgb Conc. 33.5 g/dL (32.0-36.0); Mean Corpuscular Volume 90.4 fL (80.0-100.0); Monocytes % (auto) 7.6 % (0.0-12.0); Neutrophils # (auto) 13.2 10 ^3/uL (1.6-8.6); Neutrophils % (auto) 85.1 % (37.0-80.0); Nucleated Red Blood Cells % 0.2 %; Red Blood Cells 2.67 10^6/uL (4.5-5.90); Red Cell Distribution Width 17.1 % (11.8-14.3)
[2023-01-14] MEDS: ACCU-CHEK COMFORT CURVE STRIP VI SCH ×5 (04:07→20:27)
[2023-01-14] MEDS: InsuLIN REG 1unit/0.01ml Soln (100units/ml) SC SCH ×5 (04:09→20:00)
[2023-01-14 04:11] LABS: Anion Gap 5 (5-15); Carbon Dioxide 28 mmol/L (20-30); Chloride 110 mmol/L (98-107); Potassium 3.9 mmol/L (3.5-5.1); Sodium 143 mmol/L (136-145)
[2023-01-14 04:18] LABS: BUN/Creatinine Ratio 39.4 (10.0-20.0); Blood Urea Nitrogen 26 mg/dL (9-23); Glucose 245 mg/dL (74-106); Magnesium 1.8 mg/dL (1.6-2.6)
[2023-01-14 04:20] LABS: Phosphorus 2.7 mg/dL (2.4-5.1)
[2023-01-14] MEDS: PHENYLEPHRINE IV 250 ML IV SCH ×3 (05:50→22:30)
[2023-01-14] MEDS: metroNIDAZOLE 500MG/100ML 100 ML IV SCH ×3 (05:53→21:30)
[2023-01-14] MEDS: ALBUTEROL SULF 2.5 MG/0.5ML(0.5%) NEB SOLN NEB SCH ×4 (06:12→18:08)
[2023-01-14] MEDS: LACTATED RINGER'S 1,000 ML IV SCH (08:24)
[2023-01-14] MEDS: FUROSEMIDE 20 MG/2 ML VIAL IV SCH (09:46)
[2023-01-14] MEDS: PANTOPRAZOLE 40 MG/10 ML VIAL INJ IV SCH (09:46)
[2023-01-14] MEDS: LINEZOLID 600MG/300ML 300 ML IV SCH ×2 (09:46→22:42)
[2023-01-14] MEDS: FLUCONAZOLE 200MG/100ML 100 ML IV SCH (09:46)
[2023-01-14] MEDS: BRINZOLAMIDE OP SCH ×2 (09:47→22:00)
[2023-01-14] MEDS: TIMOLOL MAL 0.5% OPTH(EYE) SOL 5ML EACHEYE SCH ×2 (09:47→22:00)
[2023-01-14] MEDS: SODIUM CHLOR 0.9% PF (SALINE LOCK) 10ML VIAL/SYR IV SCH ×2 (09:47→21:32)
[2023-01-14] MEDS: BRIMONIDINE OP SCH ×2 (09:47→22:00)
[2023-01-14] MEDS: METOPROLOL SUCCINATE XL 50 MG TAB PO SCH (09:47)
[2023-01-14] MEDS: LISINOPRIL 20 MG TAB PO SCH (09:48)
[2023-01-14] MEDS: INSULIN LANTUS (GLARGINE) 1 /0.01ml (100units/ml) SC SCH ×2 (09:53→22:05)
[2023-01-14] MEDS: fentaNYL Drip 2500mCg/250mlNS 250 ML IV SCH (10:59)
[2023-01-14] MEDS: MIDAZOLAM DRIP 50 mg/50mL 50 ML IV SCH (10:59)
[2023-01-14 12:12] LABS: Base Excess 2.7 mmol/L (-2.0-2.0)
[2023-01-14] MEDS: MORPHINE SULFATE INJ 2 MG/ml SYRG IV PRN (14:20)
[2023-01-14] MEDS: hydrALAZINE HCL 20 MG/ML VL IV PRN (15:46)
[2023-01-14] MEDS: TPN PER PHARMACY IV NR ×10 (20:31)
[2023-01-14] MEDS ORDERED: NOREPINEPHRINE 8 MG/250ML KIT 250 ML IV SCH (21:15)
[2023-01-14] MEDS: ATORVASTATIN 20 MG TAB PO SCH (21:51)
[2023-01-14] MEDS: RHOPRESSA EYE OP SCH (22:01)
[2023-01-15] VITALS (61 sets, daily range): BP systolic 113–165; BP diastolic 46–129; PULSE 74–107; RESP 11–38; TEMP 98.1–98.9; O2SAT 90–100
[2023-01-15] MEDS: ALBUTEROL SULF 2.5 MG/0.5ML(0.5%) NEB SOLN NEB SCH ×4 (00:21→19:02)
[2023-01-15] MEDS: IPRATROPIUM BROM 0.5 MG/2.5ML INH SOL NEB SCH ×4 (00:22→19:02)
[2023-01-15] MEDS: ACCU-CHEK COMFORT CURVE STRIP VI SCH ×6 (00:48→23:48)
[2023-01-15] MEDS: InsuLIN REG 1unit/0.01ml Soln (100units/ml) SC SCH ×6 (00:49→23:48)
[2023-01-15] MEDS ORDERED: ALBUTEROL SULF 2.5 MG/0.5ML(0.5%) NEB SOLN NEB ONE (03:15)
[2023-01-15] MEDS ORDERED: SODIUM BICARBONATE 8.4% INJ 50ML SYRINGE IV ONE (03:15)
[2023-01-15] MEDS ORDERED: CALCIUM GLUC 1,000mg/50ml-NS 50 ML IV ONE (03:15)
[2023-01-15 05:01] LABS: Basophils # (auto) 0.1 10 ^3/uL (0-0.2); Basophils % (auto) 0.4 % (0.0-2.0); Eosinophils # (auto) 0 10 ^3/uL (0-0.8); Eosinophils % (auto) 0.1 % (0.0-7.0); Hemoglobin 7.9 g/dL (13.5-17.5); Lymphocytes # (auto) 1.9 10 ^3/uL (0.4-5.4); Lymphocytes % (auto) 10.3 % (10.0-50.0); Mean Corpuscular Hemoglobin 29.6 pg (28.0-32.0); Mean Corpuscular Hgb Conc. 33.1 g/dL (32.0-36.0); Mean Corpuscular Volume 89.3 fL (80.0-100.0); Monocytes % (auto) 5.5 % (0.0-12.0); Neutrophils # (auto) 15.7 10 ^3/uL (1.6-8.6); Neutrophils % (auto) 83.7 % (37.0-80.0); Nucleated Red Blood Cells % 0.1 %; Red Blood Cells 2.69 10^6/uL (4.5-5.90); Red Cell Distribution Width 17.4 % (11.8-14.3); White Blood Cell 18.7 10^3/uL (4.4-10.8)
[2023-01-15 05:11] LABS: Chloride 107 mmol/L (98-107); Potassium 3.8 mmol/L (3.5-5.1); Sodium 141 mmol/L (136-145)
[2023-01-15 05:12] LABS: Anion Gap 3 (5-15); Calcium 7.8 mg/dL (8.7-10.4); Carbon Dioxide 31 mmol/L (20-30)
[2023-01-15 05:17] LABS: BUN/Creatinine Ratio 46.7 (10.0-20.0); Blood Urea Nitrogen 28 mg/dL (9-23)
[2023-01-15 05:18] LABS: Magnesium 1.7 mg/dL (1.6-2.6)
[2023-01-15 05:19] LABS: Phosphorus 3.4 mg/dL (2.4-5.1)
[2023-01-15 05:24] LABS: Glucose 117 mg/dL (74-106)
[2023-01-15] MEDS: metroNIDAZOLE 500MG/100ML 100 ML IV SCH ×3 (05:40→20:42)
[2023-01-15] MEDS: PIPERACILLIN-TAZOB 3.375GM 100 ML IV SCH ×3 (06:41→21:47)
[2023-01-15] MEDS: PHENYLEPHRINE IV 250 ML IV SCH ×3 (08:43→23:24)
[2023-01-15 09:29] LABS: Triglycerides 157 mg/dL (< 150)
[2023-01-15] MEDS: LISINOPRIL 20 MG TAB PO SCH (10:00)
[2023-01-15] MEDS: ENOXAPARIN SOD 40 MG/0.4 ML SYRINGE SC SCH (10:00)
[2023-01-15] MEDS: TIMOLOL MAL 0.5% OPTH(EYE) SOL 5ML EACHEYE SCH ×2 (10:00→21:48)
[2023-01-15] MEDS: SODIUM CHLOR 0.9% PF (SALINE LOCK) 10ML VIAL/SYR IV SCH ×2 (10:00→21:50)
[2023-01-15] MEDS: BRINZOLAMIDE OP SCH ×2 (10:00→21:50)
[2023-01-15] MEDS: BRIMONIDINE OP SCH ×2 (10:00→21:50)
[2023-01-15] MEDS: METOPROLOL SUCCINATE XL 50 MG TAB PO SCH (10:00)
[2023-01-15] MEDS ORDERED: MAGNESIUM SULFATE 1GM/100ML 100 ML IV ONE (10:30)
[2023-01-15] MEDS: FUROSEMIDE 20 MG/2 ML VIAL IV SCH (11:14)
[2023-01-15] MEDS: PANTOPRAZOLE 40 MG/10 ML VIAL INJ IV SCH (11:14)
[2023-01-15] MEDS: FLUCONAZOLE 200MG/100ML 100 ML IV SCH (11:15)
[2023-01-15] MEDS: LINEZOLID 600MG/300ML 300 ML IV SCH ×2 (11:15→21:46)
[2023-01-15] MEDS: MORPHINE SULFATE INJ 2 MG/ml SYRG IV PRN ×2 (11:17→23:20)
[2023-01-15] MEDS: INSULIN LANTUS (GLARGINE) 1 /0.01ml (100units/ml) SC SCH ×2 (11:22→21:49)
[2023-01-15] MEDS: TPN PER PHARMACY IV NR ×10 (19:49)
[2023-01-15] MEDS ORDERED: TPN PER PHARMACY IV NR ×11 (20:00)
[2023-01-15] MEDS: ATORVASTATIN 20 MG TAB PO SCH (21:47)
[2023-01-15] MEDS: RHOPRESSA EYE OP SCH (21:48)
[2023-01-16] VITALS (54 sets, daily range): BP systolic 122–162; BP diastolic 50–81; PULSE 71–100; RESP 14–29; TEMP 97.7–98.5; O2SAT 94–100
[2023-01-16] MEDS: IPRATROPIUM BROM 0.5 MG/2.5ML INH SOL NEB SCH ×6 (00:14→23:50)
[2023-01-16] MEDS: ALBUTEROL SULF 2.5 MG/0.5ML(0.5%) NEB SOLN NEB SCH ×6 (00:16→23:50)
[2023-01-16] MEDS: MORPHINE SULFATE INJ 2 MG/ml SYRG IV PRN ×4 (03:37→20:49)
[2023-01-16] MEDS: metroNIDAZOLE 500MG/100ML 100 ML IV SCH ×3 (04:40→20:49)
[2023-01-16 04:59] LABS: Albumin 2.4 g/dL (3.2-4.8); Alkaline Phosphatase 130 U/L (46-116); Anion Gap 5 (5-15); Aspartate Aminotransferase 28 U/L (13-40); BUN/Creatinine Ratio 56.1 (10.0-20.0); Blood Urea Nitrogen 32 mg/dL (9-23); Calcium 7.7 mg/dL (8.7-10.4); Carbon Dioxide 32 mmol/L (20-30); Chloride 102 mmol/L (98-107); Glucose 61 mg/dL (74-106); Magnesium 1.8 mg/dL (1.6-2.6); Potassium 4.2 mmol/L (3.5-5.1); Sodium 139 mmol/L (136-145)
[2023-01-16 05:00] LABS: Bilirubin, Total 0.2 mg/dL (0.2-1.0); Phosphorus 4.1 mg/dL (2.4-5.1); Total Protein 5.2 g/dL (5.7-8.2)
[2023-01-16 05:04] LABS: Alanine Aminotransferase < 9 U/L (7-40)
[2023-01-16 05:24] LABS: Hematocrit 25.2 % (41.0-53.0); Hemoglobin 8.3 g/dL (13.5-17.5); Mean Corpuscular Hemoglobin 29.9 pg (28.0-32.0); Mean Corpuscular Hgb Conc. 32.9 g/dL (32.0-36.0); Mean Corpuscular Volume 90.9 fL (80.0-100.0); Red Blood Cells 2.77 10^6/uL (4.5-5.90); Red Cell Distribution Width 17.5 % (11.8-14.3); White Blood Cell 14.8 10^3/uL (4.4-10.8)
[2023-01-16 05:26] LABS: Basophils % (manual) 0 (0.0-2.0); Blast Cells 0; Eosinophils % (manual) 0 (0-7); Metamyelocytes % 0; Myelocytes % 0; Promyelocytes % 0; Reactive Lymphocytes 0
[2023-01-16] MEDS: ACCU-CHEK COMFORT CURVE STRIP VI SCH ×3 (05:38→17:25)
[2023-01-16] MEDS: InsuLIN REG 1unit/0.01ml Soln (100units/ml) SC SCH ×3 (05:38→17:27)
[2023-01-16] MEDS: PIPERACILLIN-TAZOB 3.375GM 100 ML IV SCH (05:39)
[2023-01-16] MEDS: hydrALAZINE HCL 20 MG/ML VL IV PRN ×2 (06:32→20:48)
[2023-01-16 07:41] LABS: Band Neutrophils % (manual) 2; Lymphocytes % (manual) 16 (10.0-50.0); Monocytes % (manual) 5 (0-12); Toxic Granulation Slight
[2023-01-16] MEDS: PHENYLEPHRINE IV 250 ML IV SCH ×2 (07:50→16:10)
[2023-01-16 08:51] LABS: Platelet Estimate Adequate
[2023-01-16] MEDS: FLUCONAZOLE 200MG/100ML 100 ML IV SCH (09:48)
[2023-01-16] MEDS: LINEZOLID 600MG/300ML 300 ML IV SCH ×2 (09:48→21:52)
[2023-01-16] MEDS: PANTOPRAZOLE 40 MG/10 ML VIAL INJ IV SCH (09:48)
[2023-01-16] MEDS: TIMOLOL MAL 0.5% OPTH(EYE) SOL 5ML EACHEYE SCH ×2 (09:50→21:53)
[2023-01-16] MEDS: FUROSEMIDE 20 MG/2 ML VIAL IV SCH (09:50)
[2023-01-16] MEDS: SODIUM CHLOR 0.9% PF (SALINE LOCK) 10ML VIAL/SYR IV SCH ×2 (09:50→21:53)
[2023-01-16] MEDS: BRINZOLAMIDE OP SCH ×2 (09:51→21:46)
[2023-01-16] MEDS: BRIMONIDINE OP SCH ×2 (09:51→21:46)
[2023-01-16] MEDS: LISINOPRIL 20 MG TAB PO SCH (09:51)
[2023-01-16] MEDS: METOPROLOL SUCCINATE XL 50 MG TAB PO SCH (09:51)
[2023-01-16] MEDS: INSULIN LANTUS (GLARGINE) 1 /0.01ml (100units/ml) SC SCH ×2 (10:00→21:46)
[2023-01-16] MEDS: ENOXAPARIN SOD 40 MG/0.4 ML SYRINGE SC SCH (10:02)
[2023-01-16] MEDS ORDERED: IOHEXOL 300 MG/ML 100ML BOTTLE IJ ONE (10:36)
[2023-01-16] MEDS ORDERED: LIDOCAINE 2%HCL (LOCAL ANESTH.) INJ 10ml MDV ONE (10:36)
[2023-01-16] MEDS ORDERED: FUROSEMIDE 40 MG/4 ML VIAL IV ONE (12:00)
[2023-01-16] MEDS ORDERED: cefTRIAXone 1GM/50ML D5W 50 ML IV ONE (15:30)
[2023-01-16] MEDS ORDERED: TPN PER PHARMACY IV NR ×11 (20:00)
[2023-01-16] MEDS: ATORVASTATIN 20 MG TAB PO SCH (21:46)
[2023-01-16] MEDS: RHOPRESSA EYE OP SCH (21:52)
[2023-01-17] VITALS (12 sets, daily range): BP systolic 106–145; BP diastolic 51–79; PULSE 22–98; RESP 20–95; TEMP 79–97.8; O2SAT 92–99
[2023-01-17] MEDS: InsuLIN REG 1unit/0.01ml Soln (100units/ml) SC SCH ×5 (00:11→23:07)
[2023-01-17] MEDS: ACCU-CHEK COMFORT CURVE STRIP VI SCH ×5 (00:12→22:29)
[2023-01-17] MEDS: PHENYLEPHRINE IV 250 ML IV SCH ×4 (00:25→23:07)
[2023-01-17] MEDS: MORPHINE SULFATE INJ 2 MG/ml SYRG IV PRN ×5 (02:19→23:09)
[2023-01-17] MEDS: metroNIDAZOLE 500MG/100ML 100 ML IV SCH ×3 (04:12→20:22)
[2023-01-17 05:46] LABS: Hematocrit 24.2 % (41.0-53.0)
[2023-01-17 05:50] LABS: Mean Corpuscular Hemoglobin 30.3 pg (28.0-32.0); Red Blood Cells 2.63 10^6/uL (4.5-5.90); Red Cell Distribution Width 17.1 % (11.8-14.3); White Blood Cell 13.8 10^3/uL (4.4-10.8)
[2023-01-17 06:05] LABS: Albumin 2.4 g/dL (3.2-4.8); Alkaline Phosphatase 137 U/L (46-116); Anion Gap 5 (5-15); BUN/Creatinine Ratio 42.9 (10.0-20.0); Blood Urea Nitrogen 33 mg/dL (9-23); Calcium 7.6 mg/dL (8.7-10.4); Carbon Dioxide 32 mmol/L (20-30); Chloride 100 mmol/L (98-107); Glucose 146 mg/dL (74-106); Potassium 3.7 mmol/L (3.5-5.1); Sodium 137 mmol/L (136-145)
[2023-01-17 06:06] LABS: Aspartate Aminotransferase 21 U/L (13-40); Bilirubin, Total 0.2 mg/dL (0.2-1.0); Phosphorus 3.8 mg/dL (2.4-5.1); Total Protein 5.2 g/dL (5.7-8.2)
[2023-01-17 06:33] LABS: Basophils % (manual) 0 (0.0-2.0); Blast Cells 0; Eosinophils % (manual) 0 (0-7); Myelocytes % 0; Reactive Lymphocytes 0
[2023-01-17 06:37] LABS: Alanine Aminotransferase < 9 U/L (7-40)
[2023-01-17] MEDS: IPRATROPIUM BROM 0.5 MG/2.5ML INH SOL NEB SCH ×3 (07:16→17:45)
[2023-01-17] MEDS: ALBUTEROL SULF 2.5 MG/0.5ML(0.5%) NEB SOLN NEB SCH ×3 (07:16→17:45)
[2023-01-17 08:29] LABS: Band Neutrophils % (manual) 11; Lymphocytes % (manual) 11 (10.0-50.0); Metamyelocytes % 5; Monocytes % (manual) 8 (0-12); Platelet Estimate Adequate; Promyelocytes % 1
[2023-01-17] MEDS: cefTRIAXone 1GM/50ML D5W 50 ML IV SCH (09:00)
[2023-01-17] MEDS: FLUCONAZOLE 200MG/100ML 100 ML IV SCH (10:00)
[2023-01-17] MEDS: FUROSEMIDE 20 MG/2 ML VIAL IV SCH (10:25)
[2023-01-17] MEDS: TIMOLOL MAL 0.5% OPTH(EYE) SOL 5ML EACHEYE SCH ×2 (10:25→22:29)
[2023-01-17] MEDS: SODIUM CHLOR 0.9% PF (SALINE LOCK) 10ML VIAL/SYR IV SCH ×2 (10:25→22:29)
[2023-01-17] MEDS: PANTOPRAZOLE 40 MG/10 ML VIAL INJ IV SCH (10:25)
[2023-01-17] MEDS: METOPROLOL SUCCINATE XL 50 MG TAB PO SCH (10:26)
[2023-01-17] MEDS: BRIMONIDINE OP SCH ×2 (10:26→22:29)
[2023-01-17] MEDS: INSULIN LANTUS (GLARGINE) 1 /0.01ml (100units/ml) SC SCH ×2 (10:26→22:00)
[2023-01-17] MEDS: LISINOPRIL 20 MG TAB PO SCH (10:26)
[2023-01-17] MEDS: ENOXAPARIN SOD 40 MG/0.4 ML SYRINGE SC SCH (10:26)
[2023-01-17] MEDS: BRINZOLAMIDE OP SCH ×2 (10:26→22:29)
[2023-01-17] MEDS: LINEZOLID 600MG/300ML 300 ML IV SCH ×2 (10:26→22:29)
[2023-01-17] MEDS ORDERED: IOTHALAMATE MEGLUMINE INJ 250ML BOT UR ONE ×2 (11:02→11:04)
[2023-01-17] MEDS: ACETAMINOPHEN 325 MG TAB PO PRN (12:40)
[2023-01-17] MEDS ORDERED: TPN PER PHARMACY IV NR ×22 (20:00)
[2023-01-17] MEDS: ATORVASTATIN 20 MG TAB PO SCH (22:00)
[2023-01-17] MEDS: RHOPRESSA EYE OP SCH (22:29)
[2023-01-18] VITALS (38 sets, daily range): BP systolic 115–146; BP diastolic 58–75; PULSE 75–96; RESP 18–34; TEMP 97.9–99.4; O2SAT 94–100
[2023-01-18] MEDS: ALBUTEROL SULF 2.5 MG/0.5ML(0.5%) NEB SOLN NEB SCH ×4 (03:15→18:26)
[2023-01-18] MEDS: IPRATROPIUM BROM 0.5 MG/2.5ML INH SOL NEB SCH ×4 (03:16→18:26)
[2023-01-18] MEDS: metroNIDAZOLE 500MG/100ML 100 ML IV SCH ×3 (05:15→21:06)
[2023-01-18] MEDS: ACCU-CHEK COMFORT CURVE STRIP VI SCH ×3 (05:16→18:00)
[2023-01-18] MEDS: InsuLIN REG 1unit/0.01ml Soln (100units/ml) SC SCH ×3 (05:27→18:00)
[2023-01-18 06:03] LABS: Alanine Aminotransferase 10 U/L (7-40); Albumin 2.5 g/dL (3.2-4.8); Alkaline Phosphatase 131 U/L (46-116); Anion Gap 7 (5-15); Aspartate Aminotransferase 21 U/L (13-40); BUN/Creatinine Ratio 47.6 (10.0-20.0); Bilirubin, Total 0.3 mg/dL (0.2-1.0); Blood Urea Nitrogen 40 mg/dL (9-23); Calcium 7.7 mg/dL (8.5-10.1); Carbon Dioxide 30 mmol/L (20-30); Chloride 100 mmol/L (98-107); Glucose 158 mg/dL (74-106); Potassium 3.7 mmol/L (3.5-5.1); Sodium 137 mmol/L (136-145)
[2023-01-18 06:04] LABS: Total Protein 5.4 g/dL (5.7-8.2)
[2023-01-18 06:22] LABS: Basophils # (auto) 0 10 ^3/uL (0-0.2); Basophils % (auto) 0.2 % (0.0-2.0); Eosinophils # (auto) 0.1 10 ^3/uL (0-0.8); Hematocrit 24.6 % (41.0-53.0); Lymphocytes # (auto) 1.5 10 ^3/uL (0.4-5.4); Neutrophils % (auto) 85.3 % (37.0-80.0); Nucleated Red Blood Cells % 0.2 %
[2023-01-18 06:25] LABS: Eosinophils % (auto) 0.8 % (0.0-7.0); Hemoglobin 8.3 g/dL (13.5-17.5); Lymphocytes % (auto) 9.7 % (10.0-50.0); Mean Corpuscular Hemoglobin 32.2 pg (28.0-32.0); Mean Corpuscular Hgb Conc. 33.6 g/dL (32.0-36.0); Mean Corpuscular Volume 95.9 fL (80.0-100.0); Monocytes # (auto) 0.6 10 ^3/uL (0-1.3); Neutrophils # (auto) 13.4 10 ^3/uL (1.6-8.6); Red Blood Cells 2.56 10^6/uL (4.5-5.90); Red Cell Distribution Width 17.8 % (11.8-14.3); White Blood Cell 15.7 10^3/uL (4.4-10.8)
[2023-01-18 06:50] LABS: Magnesium 2.1 mg/dL (1.6-2.6)
[2023-01-18 08:37] LABS: Lactic Acid w/Reflex 2.3 mmol/L (0.4-2.0)
[2023-01-18] MEDS: MORPHINE SULFATE INJ 2 MG/ml SYRG IV PRN ×2 (09:31→21:43)
[2023-01-18] MEDS: PHENYLEPHRINE IV 250 ML IV SCH ×2 (09:50→18:10)
[2023-01-18] MEDS: METOPROLOL SUCCINATE XL 50 MG TAB PO SCH (10:00)
[2023-01-18] MEDS: LISINOPRIL 20 MG TAB PO SCH (10:00)
[2023-01-18] MEDS: FUROSEMIDE 20 MG/2 ML VIAL IV SCH (10:10)
[2023-01-18] MEDS: PANTOPRAZOLE 40 MG/10 ML VIAL INJ IV SCH (10:10)
[2023-01-18] MEDS: SODIUM CHLOR 0.9% PF (SALINE LOCK) 10ML VIAL/SYR IV SCH ×2 (10:11→21:09)
[2023-01-18] MEDS: FLUCONAZOLE 200MG/100ML 100 ML IV SCH (10:11)
[2023-01-18] MEDS: cefTRIAXone 1GM/50ML D5W 50 ML IV SCH (10:11)
[2023-01-18] MEDS: ENOXAPARIN SOD 40 MG/0.4 ML SYRINGE SC SCH (10:11)
[2023-01-18] MEDS: LINEZOLID 600MG/300ML 300 ML IV SCH ×2 (10:11→21:06)
[2023-01-18] MEDS: INSULIN LANTUS (GLARGINE) 1 /0.01ml (100units/ml) SC SCH ×2 (10:14→23:14)
[2023-01-18] MEDS: TIMOLOL MAL 0.5% OPTH(EYE) SOL 5ML EACHEYE SCH ×2 (10:15→21:08)
[2023-01-18] MEDS: BRINZOLAMIDE OP SCH ×2 (10:17→21:44)
[2023-01-18] MEDS: BRIMONIDINE OP SCH ×2 (10:17→21:44)
[2023-01-18] MEDS ORDERED: fentaNYL CITRATE 100 MCG/2 ML VL ONE (13:10)
[2023-01-18] MEDS ORDERED: MIDAZOLAM HCL 2MG/2ML 2ml VIAL (1mg/ml) ONE (13:11)
[2023-01-18] MEDS ORDERED: IOHEXOL 350 MG/ML 100ML IJ ONE (13:33)
[2023-01-18 13:44] LABS: INR 1.45 (0.9-1.15); Prothrombin Time 14.9 sec (9.3-11.8)
[2023-01-18] MEDS ORDERED: LIDOCAINE 2%HCL (LOCAL ANESTH.) INJ 20ML MDV ONE (13:50)
[2023-01-18] MEDS ORDERED: TPN PER PHARMACY IV NR ×11 (20:00)
[2023-01-18] MEDS: ATORVASTATIN 20 MG TAB PO SCH (21:07)
[2023-01-18] MEDS: RHOPRESSA EYE OP SCH (21:08)
[2023-01-19] VITALS (44 sets, daily range): BP systolic 129–167; BP diastolic 56–90; PULSE 84–109; RESP 17–33; TEMP 97.7–98.9; O2SAT 95–100
[2023-01-19] MEDS: ALBUTEROL SULF 2.5 MG/0.5ML(0.5%) NEB SOLN NEB SCH ×4 (00:06→18:34)
[2023-01-19] MEDS: IPRATROPIUM BROM 0.5 MG/2.5ML INH SOL NEB SCH ×4 (00:06→18:34)
[2023-01-19] MEDS: ACCU-CHEK COMFORT CURVE STRIP VI SCH ×4 (00:44→17:51)
[2023-01-19] MEDS: InsuLIN REG 1unit/0.01ml Soln (100units/ml) SC SCH ×4 (00:44→17:52)
[2023-01-19] MEDS: PHENYLEPHRINE IV 250 ML IV SCH ×3 (02:30→19:10)
[2023-01-19 05:24] LABS: Albumin 2.5 g/dL (3.2-4.8); Alkaline Phosphatase 136 U/L (46-116); Anion Gap 5 (5-15); Aspartate Aminotransferase 22 U/L (13-40); BUN/Creatinine Ratio 43.9 (10.0-20.0); Bilirubin, Total 0.3 mg/dL (0.2-1.0); Blood Urea Nitrogen 36 mg/dL (9-23); Calcium 7.8 mg/dL (8.7-10.4); Carbon Dioxide 30 mmol/L (20-30); Chloride 102 mmol/L (98-107); Phosphorus 3.2 mg/dL (2.4-5.1); Potassium 3.6 mmol/L (3.5-5.1); Sodium 137 mmol/L (136-145); Total Protein 5.3 g/dL (5.7-8.2)
[2023-01-19 05:27] LABS: Hematocrit 22.7 % (41.0-53.0); Hemoglobin 7.5 g/dL (13.5-17.5); Mean Corpuscular Hemoglobin 31.3 pg (28.0-32.0); Mean Corpuscular Hgb Conc. 33.3 g/dL (32.0-36.0); Mean Corpuscular Volume 94.2 fL (80.0-100.0); Red Blood Cells 2.41 10^6/uL (4.5-5.90); Red Cell Distribution Width 17.3 % (11.8-14.3); White Blood Cell 11.1 10^3/uL (4.4-10.8)
[2023-01-19 05:31] LABS: Basophils % (manual) 0 (0.0-2.0); Blast Cells 0; Metamyelocytes % 0; Myelocytes % 0; Promyelocytes % 0; Reactive Lymphocytes 0
[2023-01-19 05:34] LABS: Alanine Aminotransferase < 9 U/L (7-40)
[2023-01-19] MEDS: metroNIDAZOLE 500MG/100ML 100 ML IV SCH ×3 (05:39→20:23)
[2023-01-19] MEDS: MORPHINE SULFATE INJ 2 MG/ml SYRG IV PRN ×4 (05:40→20:23)
[2023-01-19 05:47] LABS: Glucose 174 mg/dL (74-106)
[2023-01-19] MEDS: METOPROLOL SUCCINATE XL 50 MG TAB PO SCH (10:00)
[2023-01-19] MEDS: LISINOPRIL 20 MG TAB PO SCH (10:00)
[2023-01-19 10:12] LABS: Band Neutrophils % (manual) 3; Eosinophils % (manual) 1 (0-7); Lymphocytes % (manual) 15 (10.0-50.0); Monocytes % (manual) 6 (0-12)
[2023-01-19 10:13] LABS: Platelet Estimate Adequate
[2023-01-19] MEDS: FUROSEMIDE 20 MG/2 ML VIAL IV SCH (10:25)
[2023-01-19] MEDS: cefTRIAXone 1GM/50ML D5W 50 ML IV SCH (10:25)
[2023-01-19] MEDS: FLUCONAZOLE 200MG/100ML 100 ML IV SCH (10:25)
[2023-01-19] MEDS: LINEZOLID 600MG/300ML 300 ML IV SCH ×2 (10:25→22:21)
[2023-01-19] MEDS: PANTOPRAZOLE 40 MG/10 ML VIAL INJ IV SCH (10:25)
[2023-01-19] MEDS: ENOXAPARIN SOD 40 MG/0.4 ML SYRINGE SC SCH (10:26)
[2023-01-19] MEDS: SODIUM CHLOR 0.9% PF (SALINE LOCK) 10ML VIAL/SYR IV SCH ×2 (10:26→22:22)
[2023-01-19] MEDS: TIMOLOL MAL 0.5% OPTH(EYE) SOL 5ML EACHEYE SCH ×2 (10:27→22:22)
[2023-01-19] MEDS: BRIMONIDINE OP SCH ×2 (10:33→22:00)
[2023-01-19] MEDS: BRINZOLAMIDE OP SCH ×2 (10:33→22:00)
[2023-01-19] MEDS: INSULIN LANTUS (GLARGINE) 1 /0.01ml (100units/ml) SC SCH ×2 (12:10→22:35)
[2023-01-19] MEDS: hydrALAZINE HCL 20 MG/ML VL IV PRN (17:51)
[2023-01-19] MEDS ORDERED: TPN PER PHARMACY IV NR ×12 (20:00)
[2023-01-19] MEDS: ATORVASTATIN 20 MG TAB PO SCH (22:00)
[2023-01-19] MEDS: RHOPRESSA EYE OP SCH (22:23)
[2023-01-20] VITALS (19 sets, daily range): BP systolic 136–165; BP diastolic 61–85; PULSE 87–122; RESP 13–31; TEMP 98–99.6; O2SAT 90–99
[2023-01-20] MEDS: ACCU-CHEK COMFORT CURVE STRIP VI SCH ×5 (00:07→23:17)
[2023-01-20] MEDS: InsuLIN REG 1unit/0.01ml Soln (100units/ml) SC SCH ×5 (00:07→23:20)
[2023-01-20] MEDS: MORPHINE SULFATE INJ 2 MG/ml SYRG IV PRN ×6 (00:24→23:16)
[2023-01-20] MEDS: ALBUTEROL SULF 2.5 MG/0.5ML(0.5%) NEB SOLN NEB SCH ×4 (00:35→19:36)
[2023-01-20] MEDS: IPRATROPIUM BROM 0.5 MG/2.5ML INH SOL NEB SCH ×4 (00:35→19:36)
[2023-01-20] MEDS: PHENYLEPHRINE IV 250 ML IV SCH ×3 (03:30→20:10)
[2023-01-20] MEDS: metroNIDAZOLE 500MG/100ML 100 ML IV SCH ×3 (04:34→21:41)
[2023-01-20 05:26] LABS: Basophils # (auto) 0 10 ^3/uL (0-0.2); Basophils % (auto) 0.3 % (0.0-2.0); Eosinophils # (auto) 0.3 10 ^3/uL (0-0.8); Hemoglobin 7.6 g/dL (13.5-17.5); Monocytes # (auto) 0.9 10 ^3/uL (0-1.3)
[2023-01-20 05:29] LABS: Eosinophils % (auto) 2.1 % (0.0-7.0); Hematocrit 22.9 % (41.0-53.0); Lymphocytes # (auto) 1.4 10 ^3/uL (0.4-5.4); Lymphocytes % (auto) 11.8 % (10.0-50.0); Mean Corpuscular Hemoglobin 30.3 pg (28.0-32.0); Mean Corpuscular Hgb Conc. 33.3 g/dL (32.0-36.0); Mean Corpuscular Volume 91.2 fL (80.0-100.0); Monocytes % (auto) 7.1 % (0.0-12.0); Neutrophils # (auto) 9.6 10 ^3/uL (1.6-8.6); Neutrophils % (auto) 78.7 % (37.0-80.0); Red Blood Cells 2.51 10^6/uL (4.5-5.90); Red Cell Distribution Width 17.2 % (11.8-14.3); White Blood Cell 12.2 10^3/uL (4.4-10.8)
[2023-01-20 05:35] LABS: Alanine Aminotransferase 15 U/L (7-40); Albumin 2.6 g/dL (3.2-4.8); Alkaline Phosphatase 171 U/L (46-116); Anion Gap 6 (5-15); Aspartate Aminotransferase 30 U/L (13-40); Blood Urea Nitrogen 34 mg/dL (9-23); Calcium 7.7 mg/dL (8.7-10.4); Carbon Dioxide 28 mmol/L (20-30); Chloride 104 mmol/L (98-107); Glucose 109 mg/dL (74-106); Phosphorus 3.4 mg/dL (2.4-5.1); Potassium 3.6 mmol/L (3.5-5.1); Sodium 138 mmol/L (136-145)
[2023-01-20 05:36] LABS: Bilirubin, Total 0.3 mg/dL (0.2-1.0); Total Protein 5.4 g/dL (5.7-8.2)
[2023-01-20] MEDS: METOPROLOL SUCCINATE XL 50 MG TAB PO SCH (08:21)
[2023-01-20] MEDS: LISINOPRIL 20 MG TAB PO SCH (08:21)
[2023-01-20] MEDS: cefTRIAXone 1GM/50ML D5W 50 ML IV SCH (08:33)
[2023-01-20] MEDS: PANTOPRAZOLE 40 MG/10 ML VIAL INJ IV SCH (08:37)
[2023-01-20] MEDS: FUROSEMIDE 20 MG/2 ML VIAL IV SCH (08:38)
[2023-01-20] MEDS: ENOXAPARIN SOD 40 MG/0.4 ML SYRINGE SC SCH (08:38)
[2023-01-20] MEDS: LINEZOLID 600MG/300ML 300 ML IV SCH (08:40)
[2023-01-20] MEDS: SODIUM CHLOR 0.9% PF (SALINE LOCK) 10ML VIAL/SYR IV SCH ×2 (08:41→21:42)
[2023-01-20] MEDS: TIMOLOL MAL 0.5% OPTH(EYE) SOL 5ML EACHEYE SCH ×2 (08:42→21:42)
[2023-01-20] MEDS: BRIMONIDINE OP SCH ×2 (08:43→21:44)
[2023-01-20] MEDS: BRINZOLAMIDE OP SCH ×2 (08:43→21:44)
[2023-01-20] MEDS: FLUCONAZOLE 200MG/100ML 100 ML IV SCH (09:02)
[2023-01-20] MEDS: INSULIN LANTUS (GLARGINE) 1 /0.01ml (100units/ml) SC SCH ×2 (09:26→22:00)
[2023-01-20] MEDS ORDERED: ALBUTEROL MEDNEB 2.5 mg/3ml NEB ONE ×3 (11:11→23:44)
[2023-01-20] MEDS: hydrALAZINE HCL 20 MG/ML VL IV PRN (18:47)
[2023-01-20] MEDS ORDERED: TPN PER PHARMACY IV NR ×12 (20:00)
[2023-01-20] MEDS ORDERED: AMIODARONE BOLUS KIT 100 ML IV ONE (20:30)
[2023-01-20] MEDS ORDERED: AMIODARONE 450mg/250ml AE 250 ML IV SCH (20:30)
[2023-01-20] MEDS: GENTAMICIN SULFATE 100 MG in D5W 5% 100 ML IR SCH (21:42)
[2023-01-20] MEDS: RHOPRESSA EYE OP SCH (21:43)
[2023-01-20] MEDS: PHENAZOPYRIDINE HCL 100 MG TAB PO SCH (21:44)
[2023-01-20] MEDS: ATORVASTATIN 20 MG TAB PO SCH (21:44)
[2023-01-21] VITALS (19 sets, daily range): BP systolic 127–165; BP diastolic 60–106; PULSE 70–103; RESP 13–30; TEMP 98.1–99.4; O2SAT 95–100
[2023-01-21] MEDS: IPRATROPIUM BROM 0.5 MG/2.5ML INH SOL NEB SCH ×5 (00:54→23:58)
[2023-01-21] MEDS: ALBUTEROL SULF 2.5 MG/0.5ML(0.5%) NEB SOLN NEB SCH ×5 (00:54→23:58)
[2023-01-21] MEDS: MORPHINE SULFATE INJ 2 MG/ml SYRG IV PRN ×5 (03:59→22:42)
[2023-01-21] MEDS: PHENYLEPHRINE IV 250 ML IV SCH ×3 (04:30→20:39)
[2023-01-21] MEDS: metroNIDAZOLE 500MG/100ML 100 ML IV SCH ×3 (05:18→20:31)
[2023-01-21 06:03] LABS: Alanine Aminotransferase 25 U/L (7-40); Albumin 2.6 g/dL (3.2-4.8); Alkaline Phosphatase 193 U/L (46-116); Anion Gap 7 (5-15); Aspartate Aminotransferase 38 U/L (13-40); BUN/Creatinine Ratio 54.5 (10.0-20.0); Blood Urea Nitrogen 36 mg/dL (9-23); Calcium 7.7 mg/dL (8.5-10.1); Carbon Dioxide 26 mmol/L (20-30); Chloride 105 mmol/L (98-107); Glucose 176 mg/dL (74-106); Potassium 4.1 mmol/L (3.5-5.1); Sodium 138 mmol/L (136-145); Triglycerides 217 mg/dL (< 150)
[2023-01-21 06:04] LABS: Bilirubin, Total 0.5 mg/dL (0.2-1.0); Phosphorus 3.9 mg/dL (2.4-5.1); Total Protein 5.5 g/dL (5.7-8.2)
[2023-01-21] MEDS ORDERED: ALBUTEROL MEDNEB 2.5 mg/3ml NEB ONE ×4 (06:05→23:33)
[2023-01-21] MEDS: AMIODARONE 450mg/250ml AE 250 ML IV SCH ×2 (06:31→16:49)
[2023-01-21] MEDS: ACCU-CHEK COMFORT CURVE STRIP VI SCH ×4 (06:41→22:42)
[2023-01-21] MEDS: InsuLIN REG 1unit/0.01ml Soln (100units/ml) SC SCH ×4 (06:42→23:04)
[2023-01-21] MEDS: cefTRIAXone 1GM/50ML D5W 50 ML IV SCH (07:46)
[2023-01-21] MEDS: PANTOPRAZOLE 40 MG/10 ML VIAL INJ IV SCH (07:47)
[2023-01-21] MEDS: ENOXAPARIN SOD 40 MG/0.4 ML SYRINGE SC SCH (07:47)
[2023-01-21] MEDS: FLUCONAZOLE 200MG/100ML 100 ML IV SCH (07:47)
[2023-01-21] MEDS: BRINZOLAMIDE OP SCH ×3 (07:47→23:40)
[2023-01-21] MEDS: FUROSEMIDE 20 MG/2 ML VIAL IV SCH (07:47)
[2023-01-21] MEDS: BRIMONIDINE OP SCH ×3 (07:47→23:40)
[2023-01-21] MEDS: TIMOLOL MAL 0.5% OPTH(EYE) SOL 5ML EACHEYE SCH ×2 (07:48→23:02)
[2023-01-21] MEDS: SODIUM CHLOR 0.9% PF (SALINE LOCK) 10ML VIAL/SYR IV SCH ×2 (07:48→22:41)
[2023-01-21] MEDS: INSULIN LANTUS (GLARGINE) 1 /0.01ml (100units/ml) SC SCH ×2 (09:37→23:06)
[2023-01-21] MEDS: METOPROLOL SUCCINATE XL 50 MG TAB PO SCH (09:39)
[2023-01-21] MEDS: LISINOPRIL 20 MG TAB PO SCH (09:39)
[2023-01-21] MEDS: PHENAZOPYRIDINE HCL 100 MG TAB PO SCH ×2 (09:40→22:41)
[2023-01-21] MEDS ORDERED: POTASSIUM CHLORIDE IV NR ×10 (20:00)
[2023-01-21] MEDS ORDERED: FAT EMULSION IV NR ×10 (20:00)
[2023-01-21] MEDS ORDERED: SODIUM ACETATE IV NR ×10 (20:00)
[2023-01-21] MEDS ORDERED: [UNRECOGNIZED DRUG - OTHER] IV NR ×10 (20:00)
[2023-01-21] MEDS: ATORVASTATIN 20 MG TAB PO SCH (22:41)
[2023-01-21] MEDS: GENTAMICIN SULFATE 100 MG in D5W 5% 100 ML IR SCH (22:46)
[2023-01-21] MEDS: RHOPRESSA EYE OP SCH (23:07)
[2023-01-22] VITALS (34 sets, daily range): BP systolic 107–169; BP diastolic 46–126; PULSE 63–85; RESP 13–30; TEMP 97.5–100; O2SAT 91–100
[2023-01-22] MEDS: GENTAMICIN SULFATE 100 MG in D5W 5% 100 ML IR SCH ×2
[2023-01-22] MEDS: MORPHINE SULFATE INJ 2 MG/ml SYRG IV PRN ×3 (03:34→21:03)
[2023-01-22] MEDS: metroNIDAZOLE 500MG/100ML 100 ML IV SCH ×3 (05:18→22:45)
[2023-01-22] MEDS: ACCU-CHEK COMFORT CURVE STRIP VI SCH ×3 (05:19→18:21)
[2023-01-22] MEDS: PHENYLEPHRINE IV 250 ML IV SCH ×3 (05:30→22:10)
[2023-01-22] MEDS: InsuLIN REG 1unit/0.01ml Soln (100units/ml) SC SCH ×3 (05:41→18:26)
[2023-01-22] MEDS ORDERED: ALBUTEROL MEDNEB 2.5 mg/3ml NEB ONE ×2 (05:48→11:06)
[2023-01-22] MEDS: IPRATROPIUM BROM 0.5 MG/2.5ML INH SOL NEB SCH ×3 (05:49→18:23)
[2023-01-22] MEDS: ALBUTEROL SULF 2.5 MG/0.5ML(0.5%) NEB SOLN NEB SCH ×2 (05:49→11:12)
[2023-01-22 05:52] LABS: Basophils # (auto) 0 10 ^3/uL (0-0.2); Basophils % (auto) 0.3 % (0.0-2.0); Eosinophils # (auto) 0.1 10 ^3/uL (0-0.8); Eosinophils % (auto) 1.2 % (0.0-7.0); Hemoglobin 7.3 g/dL (13.5-17.5); Lymphocytes # (auto) 1.6 10 ^3/uL (0.4-5.4); Monocytes # (auto) 1.1 10 ^3/uL (0-1.3); Nucleated Red Blood Cells % 0.1 %
[2023-01-22 05:54] LABS: Hematocrit 22.8 % (41.0-53.0); Lymphocytes % (auto) 14.3 % (10.0-50.0); Mean Corpuscular Hemoglobin 29.4 pg (28.0-32.0); Mean Corpuscular Hgb Conc. 32.2 g/dL (32.0-36.0); Mean Corpuscular Volume 91.5 fL (80.0-100.0); Neutrophils # (auto) 8.5 10 ^3/uL (1.6-8.6); Neutrophils % (auto) 74.2 % (37.0-80.0); Red Blood Cells 2.49 10^6/uL (4.5-5.90); White Blood Cell 11.4 10^3/uL (4.4-10.8)
[2023-01-22 06:07] LABS: Alanine Aminotransferase 26 U/L (7-40); Alkaline Phosphatase 219 U/L (46-116); Anion Gap 6 (5-15); Carbon Dioxide 25 mmol/L (20-30); Chloride 106 mmol/L (98-107); Glucose 134 mg/dL (74-106); Magnesium 2.2 mg/dL (1.6-2.6); Potassium 4.5 mmol/L (3.5-5.1); Sodium 137 mmol/L (136-145)
[2023-01-22 06:08] LABS: Albumin 2.8 g/dL (3.2-4.8); Aspartate Aminotransferase 30 U/L (13-40); Bilirubin, Total 0.5 mg/dL (0.2-1.0); Phosphorus 3.4 mg/dL (2.4-5.1)
[2023-01-22 06:26] LABS: Blood Urea Nitrogen 46 mg/dL (9-23)
[2023-01-22] MEDS: AMIODARONE 450mg/250ml AE 250 ML IV SCH (06:34)
[2023-01-22] MEDS ORDERED: GASTROGRAFIN 120 ML SOL ONE (08:44)
[2023-01-22] MEDS: cefTRIAXone 1GM/50ML D5W 50 ML IV SCH (09:03)
[2023-01-22] MEDS: ENOXAPARIN SOD 40 MG/0.4 ML SYRINGE SC SCH (09:57)
[2023-01-22] MEDS: FUROSEMIDE 20 MG/2 ML VIAL IV SCH (09:57)
[2023-01-22] MEDS: PANTOPRAZOLE 40 MG/10 ML VIAL INJ IV SCH (09:57)
[2023-01-22] MEDS: PHENAZOPYRIDINE HCL 100 MG TAB PO SCH (09:58)
[2023-01-22] MEDS: LISINOPRIL 20 MG TAB PO SCH (09:58)
[2023-01-22] MEDS: METOPROLOL SUCCINATE XL 50 MG TAB PO SCH (09:59)
[2023-01-22] MEDS: INSULIN LANTUS (GLARGINE) 1 /0.01ml (100units/ml) SC SCH ×2 (10:00→22:00)
[2023-01-22] MEDS: SODIUM CHLOR 0.9% PF (SALINE LOCK) 10ML VIAL/SYR IV SCH ×2 (10:00→22:00)
[2023-01-22] MEDS: TIMOLOL MAL 0.5% OPTH(EYE) SOL 5ML EACHEYE SCH ×2 (10:01→22:00)
[2023-01-22] MEDS: ALBUTEROL MEDNEB 2.5 mg/3ml NEB NEB SCH (18:23)
[2023-01-22] MEDS: ACETAMINOPHEN 325 MG TAB PO PRN (18:56)
[2023-01-22] MEDS ORDERED: TPN PER PHARMACY IV NR ×11 (20:00)
[2023-01-22] MEDS: BRINZOLAMIDE OP SCH (22:00)
[2023-01-22] MEDS: ATORVASTATIN 20 MG TAB PO SCH (22:00)
[2023-01-22] MEDS: BRIMONIDINE OP SCH (22:00)
[2023-01-22] MEDS: RHOPRESSA EYE OP SCH (22:00)
[2023-01-23] VITALS (22 sets, daily range): BP systolic 119–169; BP diastolic 39–66; PULSE 68–84; RESP 10–42; TEMP 97.9–98.9; O2SAT 93–100
[2023-01-23] MEDS: IPRATROPIUM BROM 0.5 MG/2.5ML INH SOL NEB SCH ×4 (00:03→19:23)
[2023-01-23] MEDS: ALBUTEROL MEDNEB 2.5 mg/3ml NEB NEB SCH ×4 (00:03→19:24)
[2023-01-23] MEDS: MORPHINE SULFATE INJ 2 MG/ml SYRG IV PRN ×5 (01:21→23:36)
[2023-01-23] MEDS: PHENAZOPYRIDINE HCL 100 MG TAB PO SCH ×3 (01:23→21:16)
[2023-01-23] MEDS: ACCU-CHEK COMFORT CURVE STRIP VI SCH ×5 (06:00→23:43)
[2023-01-23] MEDS: PHENYLEPHRINE IV 250 ML IV SCH ×3 (06:30→23:10)
[2023-01-23 08:03] LABS: Albumin 3.5 g/dL (3.2-4.8); Alkaline Phosphatase 86 U/L (46-116); Anion Gap 7 (5-15); Aspartate Aminotransferase 50 U/L (13-40); Calcium 10.4 mg/dL (8.5-10.1); Carbon Dioxide 24 mmol/L (20-30); Chloride 100 mmol/L (98-107); Glucose 162 mg/dL (74-106)
[2023-01-23 08:04] LABS: Bilirubin, Total < 0.2 mg/dL (0.2-1.0); Phosphorus 2.1 mg/dL (2.4-5.1); Total Protein 6.7 g/dL (5.7-8.2)
[2023-01-23] MEDS: metroNIDAZOLE 500MG/100ML 100 ML IV SCH (08:06)
[2023-01-23 08:12] LABS: Sodium 131 mmol/L (136-145)
[2023-01-23 09:20] LABS: Magnesium 2.2 mg/dL (1.6-2.6)
[2023-01-23] MEDS: InsuLIN REG 1unit/0.01ml Soln (100units/ml) SC SCH ×5 (09:21→23:43)
[2023-01-23 09:26] LABS: Alanine Aminotransferase 60 U/L (7-40); Blood Urea Nitrogen 13 mg/dL (9-23); Potassium 5.4 mmol/L (3.5-5.1)
[2023-01-23] MEDS ORDERED: SODIUM PHOSP 20MEQ(15MMOL) IN NS 100 ML IV ONE (09:45)
[2023-01-23] MEDS: INSULIN LANTUS (GLARGINE) 1 /0.01ml (100units/ml) SC SCH ×2 (10:35→23:42)
[2023-01-23] MEDS: PANTOPRAZOLE 40 MG/10 ML VIAL INJ IV SCH (10:43)
[2023-01-23] MEDS: SODIUM CHLOR 0.9% PF (SALINE LOCK) 10ML VIAL/SYR IV SCH ×2 (10:44→21:17)
[2023-01-23] MEDS: FUROSEMIDE 20 MG/2 ML VIAL IV SCH (10:44)
[2023-01-23] MEDS: ENOXAPARIN SOD 40 MG/0.4 ML SYRINGE SC SCH (10:44)
[2023-01-23] MEDS: METOPROLOL SUCCINATE XL 50 MG TAB PO SCH (10:45)
[2023-01-23] MEDS: BRIMONIDINE OP SCH ×2 (10:59→21:18)
[2023-01-23] MEDS: BRINZOLAMIDE OP SCH ×2 (10:59→21:18)
[2023-01-23] MEDS: AMIODARONE 450mg/250ml AE 250 ML IV SCH ×2 (11:39→14:30)
[2023-01-23] MEDS: TIMOLOL MAL 0.5% OPTH(EYE) SOL 5ML EACHEYE SCH ×2 (11:41→21:17)
[2023-01-23] MEDS: MEROPENEM 2 GM in SODIUM CHL 0.9% 250 ML IV SCH ×2 (12:04→18:30)
[2023-01-23] MEDS: LISINOPRIL 20 MG TAB PO SCH (12:05)
[2023-01-23] MEDS: LINEZOLID 600MG/300ML 300 ML IV SCH (16:45)
[2023-01-23] MEDS: TPN PER PHARMACY IV NR ×10 (21:09)
[2023-01-23] MEDS: ATORVASTATIN 20 MG TAB PO SCH (21:16)
[2023-01-23] MEDS: RHOPRESSA EYE OP SCH (21:17)
[2023-01-23] MEDS: GENTAMICIN SULFATE 100 MG in D5W 5% 100 ML IR SCH (22:00)
[2023-01-24] VITALS (28 sets, daily range): BP systolic 122–157; BP diastolic 37–68; PULSE 60–83; RESP 17–31; TEMP 97.8–98.2; O2SAT 92–100
[2023-01-24] MEDS: IPRATROPIUM BROM 0.5 MG/2.5ML INH SOL NEB SCH ×4 (00:34→18:15)
[2023-01-24] MEDS: ALBUTEROL MEDNEB 2.5 mg/3ml NEB NEB SCH ×4 (00:34→18:15)
[2023-01-24] MEDS: MEROPENEM 2 GM in SODIUM CHL 0.9% 250 ML IV SCH ×3 (02:00→17:58)
[2023-01-24] MEDS: LINEZOLID 600MG/300ML 300 ML IV SCH ×2 (04:19→15:17)
[2023-01-24] MEDS: AMIODARONE 450mg/250ml AE 250 ML IV SCH ×2 (04:20→17:35)
[2023-01-24] MEDS: hydrALAZINE HCL 20 MG/ML VL IV PRN (05:21)
[2023-01-24] MEDS: ACCU-CHEK COMFORT CURVE STRIP VI SCH ×3 (05:30→18:03)
[2023-01-24] MEDS: InsuLIN REG 1unit/0.01ml Soln (100units/ml) SC SCH ×3 (05:33→18:07)
[2023-01-24 06:36] LABS: Alanine Aminotransferase 31 U/L (7-40); Alkaline Phosphatase 233 U/L (46-116); Anion Gap 9 (5-15); BUN/Creatinine Ratio 54.2 (10.0-20.0); Calcium 7.8 mg/dL (8.7-10.4); Carbon Dioxide 24 mmol/L (20-30); Chloride 109 mmol/L (98-107); Glucose 173 mg/dL (74-106); Magnesium 2.1 mg/dL (1.6-2.6); Sodium 142 mmol/L (136-145)
[2023-01-24 06:37] LABS: Albumin 2.7 g/dL (3.2-4.8); Aspartate Aminotransferase 36 U/L (13-40); Bilirubin, Total 0.3 mg/dL (0.2-1.0); Phosphorus 3.1 mg/dL (2.4-5.1); Total Protein 5.8 g/dL (5.7-8.2)
[2023-01-24 06:48] LABS: Blood Urea Nitrogen 39 mg/dL (9-23); Potassium 3.4 mmol/L (3.5-5.1)
[2023-01-24] MEDS: PHENYLEPHRINE IV 250 ML IV SCH ×2 (07:30→15:50)
[2023-01-24] MEDS: MORPHINE SULFATE INJ 2 MG/ml SYRG IV PRN ×3 (08:16→20:39)
[2023-01-24] MEDS ORDERED: POTASSIUM CHL 20MEQ/100ML 100 ML IV ONE (09:15)
[2023-01-24] MEDS: TIMOLOL MAL 0.5% OPTH(EYE) SOL 5ML EACHEYE SCH ×2 (09:40→22:19)
[2023-01-24] MEDS: PANTOPRAZOLE 40 MG/10 ML VIAL INJ IV SCH (09:42)
[2023-01-24] MEDS: METOPROLOL SUCCINATE XL 50 MG TAB PO SCH (09:43)
[2023-01-24] MEDS: PHENAZOPYRIDINE HCL 100 MG TAB PO SCH ×2 (09:43→22:20)
[2023-01-24] MEDS: LISINOPRIL 20 MG TAB PO SCH (09:43)
[2023-01-24] MEDS: SODIUM CHLOR 0.9% PF (SALINE LOCK) 10ML VIAL/SYR IV SCH ×2 (09:44→22:18)
[2023-01-24] MEDS: FUROSEMIDE 20 MG/2 ML VIAL IV SCH (09:44)
[2023-01-24] MEDS: BRINZOLAMIDE OP SCH ×2 (10:00→22:00)
[2023-01-24] MEDS: BRIMONIDINE OP SCH ×2 (10:00→22:00)
[2023-01-24] MEDS: INSULIN LANTUS (GLARGINE) 1 /0.01ml (100units/ml) SC SCH ×2 (10:06→22:21)
[2023-01-24] MEDS ORDERED: IOHEXOL 300 MG/ML 100ML BOTTLE IJ ONE (12:10)
[2023-01-24] MEDS: TPN PER PHARMACY IV NR ×10 (19:28)
[2023-01-24] MEDS ORDERED: TPN PER PHARMACY IV NR ×12 (20:00)
[2023-01-24] MEDS: RHOPRESSA EYE OP SCH (22:19)
[2023-01-24] MEDS: ATORVASTATIN 20 MG TAB PO SCH (22:20)
[2023-01-24] MEDS: GENTAMICIN SULFATE 100 MG in D5W 5% 100 ML IR SCH (22:24)
[2023-01-25] VITALS (14 sets, daily range): BP systolic 69–141; BP diastolic 34–83; PULSE 46–76; RESP 12–34; TEMP 97.8–98; O2SAT 90–100
[2023-01-25] MEDS: IPRATROPIUM BROM 0.5 MG/2.5ML INH SOL NEB SCH ×3 (00:06→12:00)
[2023-01-25] MEDS: ALBUTEROL MEDNEB 2.5 mg/3ml NEB NEB SCH ×3 (00:06→12:00)
[2023-01-25] MEDS: PHENYLEPHRINE IV 250 ML IV SCH ×2 (00:10→08:30)
[2023-01-25] MEDS: ACCU-CHEK COMFORT CURVE STRIP VI SCH ×2 (00:40→06:29)
[2023-01-25] MEDS: MORPHINE SULFATE INJ 2 MG/ml SYRG IV PRN (01:36)
[2023-01-25] MEDS: MEROPENEM 2 GM in SODIUM CHL 0.9% 250 ML IV SCH ×2 (01:36→10:26)
[2023-01-25] MEDS: LINEZOLID 600MG/300ML 300 ML IV SCH (04:29)
[2023-01-25 05:40] LABS: Alanine Aminotransferase 28 U/L (7-40); Albumin 2.5 g/dL (3.2-4.8); Alkaline Phosphatase 209 U/L (46-116); Anion Gap 7 (5-15); Aspartate Aminotransferase 31 U/L (13-40); BUN/Creatinine Ratio 56.6 (10.0-20.0); Blood Urea Nitrogen 43 mg/dL (9-23); Calcium 7.4 mg/dL (8.7-10.4); Carbon Dioxide 23 mmol/L (20-30); Chloride 105 mmol/L (98-107); Glucose 237 mg/dL (74-106); Magnesium 2.2 mg/dL (1.6-2.6); Potassium 3.1 mmol/L (3.5-5.1)
[2023-01-25 05:41] LABS: Bilirubin, Total 0.3 mg/dL (0.2-1.0); Phosphorus 2.8 mg/dL (2.4-5.1); Total Protein 5.4 g/dL (5.7-8.2)
[2023-01-25 06:19] LABS: Sodium 135 mmol/L (136-145)
[2023-01-25] MEDS: InsuLIN REG 1unit/0.01ml Soln (100units/ml) SC SCH ×2 (06:34)
[2023-01-25] MEDS: AMIODARONE 450mg/250ml AE 250 ML IV SCH (08:05)
[2023-01-25 08:13] LABS: INR 1.4 (0.9-1.15); Partial Thromboplastin Time 30.7 SEC (24.5-34.5); Prothrombin Time 14.4 sec (9.3-11.8)
[2023-01-25] MEDS ORDERED: POTASSIUM CHL 20MEQ/100ML 100 ML IV SCH (09:15)
[2023-01-25] MEDS: SODIUM CHLOR 0.9% PF (SALINE LOCK) 10ML VIAL/SYR IV SCH (10:00)
[2023-01-25] MEDS: FUROSEMIDE 20 MG/2 ML VIAL IV SCH (10:00)
[2023-01-25] MEDS: BRIMONIDINE OP SCH (10:00)
[2023-01-25] MEDS: BRINZOLAMIDE OP SCH (10:00)
[2023-01-25] MEDS: INSULIN LANTUS (GLARGINE) 1 /0.01ml (100units/ml) SC SCH (10:00)
[2023-01-25] MEDS: TIMOLOL MAL 0.5% OPTH(EYE) SOL 5ML EACHEYE SCH (10:00)
[2023-01-25] MEDS: PANTOPRAZOLE 40 MG/10 ML VIAL INJ IV SCH (10:26)
[2023-01-25] MEDS: PHENAZOPYRIDINE HCL 100 MG TAB PO SCH (10:27)
[2023-01-25] MEDS: LISINOPRIL 20 MG TAB PO SCH (10:28)
[2023-01-25] MEDS: METOPROLOL SUCCINATE XL 50 MG TAB PO SCH (10:28)
[2023-01-25] MEDS ORDERED: LIDOCAINE 2%HCL (LOCAL ANESTH.) INJ 20ML MDV ONE (10:39)
[2023-01-25] MEDS ORDERED: IODIXANOL 320MG/ML 100ML BTL IV ONE (10:39)
[2023-01-25] MEDS ORDERED: PROPOFOL 100 ML IV ONE (11:43)
[2023-01-25] MEDS ORDERED: EPINEPHrine HCL 250 ML IV ONE (11:55)
[2023-01-25] MEDS ORDERED: NOREPINEPHRINE 8 MG/250ML KIT 250 ML IV ONE (12:09)
[2023-01-25] MEDS ORDERED: PHENYLEPHRINE IV 250 ML IV ONE (12:16)
[2023-01-25] MEDS ORDERED: VASOPRESSIN 20 UNIT/ML ONE (12:23)
[2023-01-25] MEDS ORDERED: SODIUM BICARBONATE 8.4% INJ 50ML SYRINGE ONE (12:29)
[2023-01-25] MEDS ORDERED: ATROPINE SULFATE 1 MG/1 ML VIAL ONE (12:30)
[2023-01-25 12:36] LABS: Base Excess -12.6 mmol/L (-2.0-2.0)
[2023-01-25] MEDS ORDERED: TPN PER PHARMACY IV NR ×12 (20:00)
== END 2023-01-25 12:34 | DRG 853 ==
LOC: ER 10:12 → EDBD 10:12 → OVERFLOW 18:44 → TELE-EAST 23:00 → ICU WEST 01-12 18:31 → TELE-CENTR 01-16 23:33 → DOU IN ICU 01-17 23:58 → ICU WEST 01-25 11:50
PROVIDERS: ADMIT Nurse Practitioner Family; ATTEND Family Medicine
PROC: 30233N1 Transfusion of Nonautologous Red Blood Cells into Peripheral Vein, Percutaneous Approach (ICD-10-PCS; principal; 2023-01-05)
PROC: 02HV33Z Insertion of Infusion Device into Superior Vena Cava, Percutaneous Approach (ICD-10-PCS; 2023-01-08)
PROC: B548ZZA Ultrasonography of Superior Vena Cava, Guidance (ICD-10-PCS; 2023-01-08)
PROC: 0BH17EZ Insertion of Endotracheal Airway into Trachea, Via Natural or Artificial Opening (ICD-10-PCS; 2023-01-12)
PROC: 0D1N0Z4 Bypass Sigmoid Colon to Cutaneous, Open Approach (ICD-10-PCS; 2023-01-12)
PROC: 0DBN0ZZ Excision of Sigmoid Colon, Open Approach (ICD-10-PCS; 2023-01-12)
PROC: 0DN80ZZ Release Small Intestine, Open Approach (ICD-10-PCS; 2023-01-12)
PROC: 0TQB0ZZ Repair Bladder, Open Approach (ICD-10-PCS; 2023-01-12)
PROC: 0TJB8ZZ Inspection of Bladder, Via Natural or Artificial Opening Endoscopic (ICD-10-PCS; 2023-01-12)
PROC: 5A1945Z Respiratory Ventilation, 24-96 Consecutive Hours (ICD-10-PCS; 2023-01-12 13:03)
PROC: 0T9030Z Drainage of Right Kidney with Drainage Device, Percutaneous Approach (ICD-10-PCS; 2023-01-18)
PROC: BT41ZZZ Ultrasonography of Right Kidney (ICD-10-PCS; 2023-01-18)
PROC: BT111ZZ Fluoroscopy of Right Kidney using Low Osmolar Contrast (ICD-10-PCS; 2023-01-18)
PROC: 0T9130Z Drainage of Left Kidney with Drainage Device, Percutaneous Approach (ICD-10-PCS; 2023-01-18)
PROC: BT42ZZZ Ultrasonography of Left Kidney (ICD-10-PCS; 2023-01-18)
PROC: BT121ZZ Fluoroscopy of Left Kidney using Low Osmolar Contrast (ICD-10-PCS; 2023-01-18)
PROC: 5A12012 Performance of Cardiac Output, Single, Manual (ICD-10-PCS; 2023-01-25)
DX: A41.89 Other specified sepsis (principal); I50.33 Acute on chronic diastolic (congestive) heart failure; R65.21 Severe sepsis with septic shock; J96.01 Acute respiratory failure with hypoxia; E44.0 Moderate protein-calorie malnutrition; K56.609 Unspecified intestinal obstruction, unspecified as to partial versus complete obstruction; K57.32 Diverticulitis of large intestine without perforation or abscess without bleeding; N32.1 Vesicointestinal fistula; J44.0 Chronic obstructive pulmonary disease with (acute) lower respiratory infection; Z16.24 Resistance to multiple antibiotics; Z20.822 Contact with and (suspected) exposure to COVID-19; D64.9 Anemia, unspecified; E83.42 Hypomagnesemia; E78.00 Pure hypercholesterolemia, unspecified; E87.6 Hypokalemia; E86.0 Dehydration; I48.91 Unspecified atrial fibrillation; E11.65 Type 2 diabetes mellitus with hyperglycemia; Z86.16 Personal history of COVID-19; I11.0 Hypertensive heart disease with heart failure; I25.10 Atherosclerotic heart disease of native coronary artery without angina pectoris; J44.9 Chronic obstructive pulmonary disease, unspecified; K52.9 Noninfective gastroenteritis and colitis, unspecified; K66.0 Peritoneal adhesions (postprocedural) (postinfection); K80.20 Calculus of gallbladder without cholecystitis without obstruction; N30.80 Other cystitis without hematuria; B95.2 Enterococcus as the cause of diseases classified elsewhere; H40.9 Unspecified glaucoma; N30.81 Other cystitis with hematuria; I46.9 Cardiac arrest, cause unspecified; Z79.4 Long term (current) use of insulin; Z86.73 Personal history of transient ischemic attack (TIA), and cerebral infarction without residual deficits; Z79.899 Other long term (current) drug therapy; Z95.1 Presence of aortocoronary bypass graft; Z99.81 Dependence on supplemental oxygen; Z83.3 Family history of diabetes mellitus; Z68.33 Body mass index [BMI] 33.0-33.9, adult
CPT/HCPCS: 36415; 36569; 36600; 50430; 71045; 72192; 72193; 74018; 74021; 74176; 74250; 74425; 76942; 80048; 80053; 80069; 81001; 82570; 82607; 82746; 82805; 82962; 83540; 83550; 83605; 83735; 83880; 84100; 84478; 84484; 85007; 85025; 85027; 85048; 85610; 85730; 86850; 86900; 86901; 86920; 86922; 87040; 87045; 87070; 87077; 87081; 87086; 87088; 87186; 87205; 87426; 87427; 87493; 92610; 92950; 94002; 94003; 94640; 96379; 97110; 97116; 97163; 97530; 99152; C9113; G0378; J0131; J0171; J0461; J0696; J1100; J1450; J1580; J1815; J1885; J2001; J2250; J2405; J2543; J2704; J3480; J3490; J7042; J7060; J7131; Q9967